=== PATIENT | female | born 1965 | race Caucasian/White ===

== ENCOUNTER 2019-06-21 16:15 | Outpatient (RCR) | payer OTHER, SELFPAY ==
--- NOTE | 2019-05-12 12:41 | PTOPEVAL ---
PHYSICAL THERAPY EVALUATION AND PLAN OF CARE Thank you for referring this patient to [facility]. Eunice is scheduled to be seen 2x/week for 4 weeks. Please see below for details of evaluation. Please review, sign, date and return this plan of care LEESA. I agree with and certify that the following plan of care is medically necessary. Referring Physician Date Attending Provider: Jeremías Mejía MD *PT Outpatient Evaluation Outpatient Past Medical History Gastrointestinal History Hx Cholecystectomy Yes Musculoskeletal History Hx Orthopedic Surgery Yes: left wrist surgery Hx Scoliosis Yes: thoracic dextroscoliosis, congentigal Hx Other Musculoskeletal Disorders Yes: multiple episodes of whiplash, migraines Evaluation Information Problem Diagnosis left shoulder pain Onset 3months ago Subjective Information Eunice is here today with c/o Query Text:As Reported By Patient/ left shoulder pain. She had Family surgery on her left wrist in 2017 and her strength never fully recovered.3months ago she lifted her grandson and her wrist gave out and her shoulder was pulled. She has pain and decreased strength in left shoulder since then. sometimes will wake up with left hand numbness. Eunice also has a history of multiple episodes of whiplash that have led to migraines. Over the last 6 weeks she noticed an increase in migraine frequency and intensity as well as some vertigo, like a pre-headache type feeling. Pain Assessment Left Shoulder(s) Reported Pain Level 1 Pain Description Aching,Pulling Pain Frequency Chronic Current Pain Intensity 1 Lowest Pain Intensity 1 Greatest Pain Intensity 5 General Upper Extremity Range of Motion Reason Not Measured WNL/Left,WNL/Right Scapular/Shoulder Right Shoulder Flexion Strength 4+ Good + Shoulder Abduction Strength 4+ Good + Shoulder Medial Rotation Strength 5 Normal Shoulder Lateral Rotation Strength 5 Normal Left Scapular Retraction - Rhomboid 3 Fair Scapular Retraction - Middle Trapezius 3 Fair Scapular Retraction - Lower Trapezius 3- Fair - Shoulder Flexion Strength 3+ Fair + Shoulder Abduction Strength 4- Good -
--- NOTE | 2019-05-17 09:16 | PCPTNOTE ---
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
--- NOTE | 2019-06-09 18:30 | PTOPEVAL ---
PHYSICAL THERAPY PLAN OF CARE UPDATE AND PROGRESS REPORT Thank you for referring this patient to [facility]. Eunice will continue to work with physical therapy 1-2x/week for 4 weeks. Please review, sign, date and return this plan of care LEESA. I agree with and certify that the following plan of care is medically necessary. 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 She reports less migraines overall and no numbness in her left hand while sleeping. It was suggested that when she is baby-sitting, if the baby wants to be held, that she sit in a chair and allow the child to come to her and pick the child up from the seated position so she is not lifting all the way from the floor. Pain Scale Used Numeric (1 - 10) Self Report Pain Assessment Left Shoulder(s) Reported Pain Level 0 Pain Description Aching,Pulling,Tightness Pain Frequency Chronic Additional Pain Comments in upper traps and back: 2/10 Pain Score Pain Score 0: Self Report Upper Extremity Range of Motion General Upper Extremity Range of Motion Reason Not Measured WNL/Left,WNL/Right Scapular/Shoulder Right Shoulder Flexion Strength 4+ Good + Shoulder Abduction Strength 4+ Good + Shoulder Medial Rotation Strength 5 Normal Shoulder Lateral Rotation Strength 5 Normal Left Scapular Retraction - Rhomboid 3+ Fair + Scapular Retraction - Middle Trapezius 3 Fair Scapular Retraction - Lower Trapezius 3 Fair Shoulder Flexion Strength 4 Good Shoulder Abduction Strength 4 Good Shoulder Medial Rotation Strength 4+ Good + Shoulder Lateral Rotation Strength 4 Good Shoulder Strength Comments no pain with MMT except during lateral rotation Standing Position Posture Evaluation View
--- NOTE | 2019-06-13 17:15 | PCPTNOTE ---
Patient did not show up for scheduled appointment this date.
--- NOTE | 2019-06-28 16:23 | PCPTNOTE ---
Patient called & cancelled scheduled appointment this date. No reason provided.
--- NOTE | 2019-07-05 18:10 | PCPTNOTE ---
Patient called & cancelled scheduled appointment this date. No reason provided.
--- NOTE | 2019-07-25 09:28 | PCPTNOTE ---
PHYSICAL THERAPY DISCHARGE Admitting Provide: Jeremías Mejía MD Patient:Eunice Mejía Date of :1965 Patient has not returned for any further treatments since 06/21/2019, therefore she will be discharged from therapy at this time. Her last re-assessment was on 06/09/2019. The goals have been partially achieved. Thank you for referring this patient to [facility]. Please review, sign, date and return this discharge summary LEESA. I have been updated about the patient's current status and I agree with discharge from the above service at this time. Referring Physician Date
== END 2019-07-25 12:22 | disposition home or self-care (01) ==
LOC: ANHPT 16:15
PROVIDERS: PCP Family Medicine; Visit Provider Family Medicine
DX: M25.511 Pain in right shoulder (principal); G89.29 Other chronic pain
CPT/HCPCS: 97110; 97140; 97161

== ENCOUNTER 2019-10-22 08:55 | Outpatient (CLI) | payer OTHER, SELFPAY ==
[2019-10-22 09:32] LABS: Hemoglobin A1C 6.1 % (<5.7)
[2019-10-22 09:33] LABS: Basophils Percent Auto 0.3 % (0.2-1.2); Eosinophils Absolute Auto 0.2 K/mm3 (0-0.3); Eosinophils Percent Auto 2.9 % (0-4.4); Hematocrit 40.6 % (37.0-47.0); Immature Granulocyte Absolute 0.03 K/mm3 (0.00-0.031); Immature Granulocyte Percent A 0.4 % (0-0.5); Lymphocytes Absolute Auto 1.34 K/mm3 (0.9-3.2); Lymphocytes Percent Auto 17.5 % (18.3-44.2); Mean Corpuscular Hemoglobin 28.1 pg (26-34); Mean Corpuscular Volume 87.9 fl (80-100); Mean Platelet Volume 11.4 fl (7.4-10.4); Monocytes Absolute Auto 0.5 K/mm3 (0.1-0.6); Monocytes Percent Auto 6.1 % (2.6-8.5); Neutrophils Absolute Auto 5.6 K/mm3 (1.3-6.7); Neutrophils Percent Auto 72.8 % (45.5-73.1); Platelet Count Result 238 k/mm3 (150-375); Red Blood Count 4.62 M/mm3 (4.2-5.4); Red Cell Distribution Width 13.2 % (11.5-14.5); White Blood Count 7.7 K/mm3 (4.5-10.0)
[2019-10-22 09:37] LABS: Add Urine Microscopic? NO; Appearance Urine Clear (Clear); Bilirubin Urine Negative (Negative); Blood Urine Negative (Negative); Color Urine Straw (Yellow); Glucose Urine UA Negative (Negative); Ketones Urine Negative (Negative); Leukocyte Esterase Ur Negative LEU/UL (NEGATIVE); Nitrate Urine Negative (Negative); Protein Urine Negative (Negative); Specific Grav Ur 1.012 (1.001-1.035); Urobilinogen Urine Negative mg/dL (<2.0)
[2019-10-22 09:40] LABS: Alanine Aminotransferase 19 U/L (4-35); Albumin Level 4.3 g/dL (3.5-5.1); Alkaline Phosphatase 88 U/L (38-126); Amylase 91 U/L (30-110); Aspartate Amino Transferase 20 U/L (14-36); Bilirubin,Total 0.5 mg/dL (0.2-1.3); Blood Urea Nitrogen 13 mg/dL (7-17); Calcium 8.8 mg/dL (8.4-10.2); Carbon Dioxide 27 mmol/L (22-30); Chloride 104 mmol/L (98-107); Cholesterol 176 mg/dL (0-200); Estimated Glomerular Filt Rate > 60; Glucose 106 mg/dL (65-105); HDL Direct 45 mg/dL; Lipase 190 U/L (23-300); Potassium 4.2 mmol/L (3.4-5.0); Sodium 138 mmol/L (137-145); Triglycerides 100 mg/dL (<150)
[2019-10-22 09:52] LABS: LDL Cholesterol Direct 109 mg/dL
[2019-10-22 10:10] LABS: Thyroid Stimulating Hormone 0.204 uIU/mL (0.465-4.680)
[2019-10-22 10:28] LABS: Free T4 Free Thyroxine 1.35 ng/mL (0.78-2.19)
[2019-10-22 10:54] LABS: Erythrocyte Sedimentation Rate 15 mm/hr (0-20)
[2019-10-26 00:45] LABS: CA-125 6 U/mL (<35)
[2019-10-27 01:37] LABS: ANA Cascade Screen Negative (Negative)
[2019-10-27 10:54] LABS: Vitamin D 1,25 (OH)2 Total 72 pg/mL (18-72); Vitamin D2 1,25 (OH)2 <8 pg/mL; Vitamin D3 1,25 (OH)2 72 pg/mL
== END 2019-10-22 08:56 | disposition home or self-care (01) ==
PROVIDERS: PCP Family Medicine; Visit Provider Family Medicine
DX: R10.9 Unspecified abdominal pain (principal); E55.9 Vitamin D deficiency, unspecified; R76.8 Other specified abnormal immunological findings in serum; E78.2 Mixed hyperlipidemia; E03.8 Other specified hypothyroidism; E06.3 Autoimmune thyroiditis; R73.01 Impaired fasting glucose
CPT/HCPCS: 36415; 80053; 80061; 81003; 82150; 82652; 83036; 83690; 84439; 84443; 85025; 85652; 86038; 86304

== ENCOUNTER 2020-06-27 09:57 | Outpatient (CLI) | payer OTHER, SELFPAY ==
[2020-06-27 10:20] LABS: Basophils Percent Auto 0.4 % (0.2-1.2); Eosinophils Absolute Auto 0.2 K/mm3 (0-0.3); Eosinophils Percent Auto 2.6 % (0-4.4); Hemoglobin 12.7 g/dL (12.0-15.0); Immature Granulocyte Absolute 0.02 K/mm3 (0.00-0.031); Immature Granulocyte Percent A 0.3 % (0-0.5); Lymphocytes Absolute Auto 1.52 K/mm3 (0.9-3.2); Lymphocytes Percent Auto 20.1 % (18.3-44.2); Mean Corpuscular HGB Conc 31.8 g/dl (32-36); Mean Corpuscular Hemoglobin 28.7 pg (26-34); Mean Corpuscular Volume 90.3 fl (80-100); Mean Platelet Volume 11.1 fl (7.4-10.4); Monocytes Absolute Auto 0.5 K/mm3 (0.1-0.6); Monocytes Percent Auto 6.7 % (2.6-8.5); Neutrophils Absolute Auto 5.3 K/mm3 (1.3-6.7); Neutrophils Percent Auto 69.9 % (45.5-73.1); Platelet Count Result 234 k/mm3 (150-375); Red Blood Count 4.43 M/mm3 (4.2-5.4); Red Cell Distribution Width 13.6 % (11.5-14.5); White Blood Count 7.6 K/mm3 (4.5-10.0)
[2020-06-27 10:34] LABS: Alanine Aminotransferase 23 U/L (4-35); Albumin Level 4.2 g/dL (3.5-5.1); Alkaline Phosphatase 104 U/L (38-126); Anion Gap 5 mmol/L (8-16); Aspartate Amino Transferase 19 U/L (14-36); Bilirubin,Total 0.5 mg/dL (0.2-1.3); Blood Urea Nitrogen 10 mg/dL (7-17); Calcium 8.9 mg/dL (8.4-10.2); Carbon Dioxide 27 mmol/L (22-30); Chloride 107 mmol/L (98-107); Cholesterol 171 mg/dL (0-200); Creatine Kinase 67 U/L (30-135); Estimated Glomerular Filt Rate > 60; Glucose 108 mg/dL (65-105); HDL Direct 41 mg/dL; Potassium 4.5 mmol/L (3.4-5.0); Sodium 139 mmol/L (137-145); Triglycerides 113 mg/dL (<150); Uric Acid 6.1 mg/dL (2.5-7.5)
[2020-06-27 10:36] LABS: Rheumatoid Factor < 8.6 IU/ML (<12)
[2020-06-27 10:44] LABS: LDL Cholesterol Direct 116 mg/dL
[2020-06-27 11:04] LABS: Thyroid Stimulating Hormone 0.678 uIU/mL (0.465-4.680)
[2020-06-27 11:11] LABS: Free T4 Free Thyroxine 1.31 ng/mL (0.78-2.19)
[2020-06-27 11:19] LABS: Erythrocyte Sedimentation Rate 17 mm/hr (0-20)
[2020-06-29 09:59] LABS: Anti Cyclic Citrullinated Pept <16 Units (<20)
[2020-06-29 12:28] LABS: ANA Cascade Screen Negative (Negative)
[2020-06-30 13:26] LABS: Vitamin D 1,25 (OH)2 Total 70 pg/mL (18-72); Vitamin D2 1,25 (OH)2 <8 pg/mL; Vitamin D3 1,25 (OH)2 70 pg/mL
[2020-07-01 17:14] LABS: CRP, High Sensitivity 5.6 mg/L (***)
[2020-07-04 19:11] LABS: Aldolase 5.7 U/L (<=8.1)
== END 2020-06-27 09:58 | disposition home or self-care (01) ==
LOC: ANHLAB 09:59
PROVIDERS: PCP Family Medicine; Visit Provider Family Medicine
DX: E03.8 Other specified hypothyroidism (principal); E06.3 Autoimmune thyroiditis; E55.9 Vitamin D deficiency, unspecified; E78.2 Mixed hyperlipidemia; D51.9 Vitamin B12 deficiency anemia, unspecified; M19.90 Unspecified osteoarthritis, unspecified site
CPT/HCPCS: 36415; 80053; 80061; 82085; 82550; 82607; 82652; 82746; 83735; 84439; 84443; 84550; 85025; 85652; 86038; 86141; 86200; 86430

== ENCOUNTER 2020-07-24 11:54 | Outpatient (CLI) | payer OTHER, SELFPAY ==
--- NOTE | ~2020-07-24 | XR_ITS ---
EXAMINATION: XR ankle LT min 3V, XR ankle RT min 3V DATE: 07/24/2020 12:26 INDICATION: Bilateral ankle swelling and right ankle pain. TECHNIQUE: 1. Anteroposterior, oblique, mortise, and lateral views of the left ankle were obtained. 2. Anteroposterior, oblique, mortise, and lateral views of the right ankle were obtained. COMPARISON: None. FINDINGS: Alignment is normal at both the left and right ankles and visualized portions of the feet. No fractu re. Joint spaces are well maintained. No erosions. No ankle joint effusion on either the left or righ t. Bilateral small Achilles calcaneal and moderate sized plantar calcaneal spurs. The soft tissues ar e unremarkable. IMPRESSION: 1. Bilateral Achilles and plantar calcaneal spurs. Otherwise unremarkable bilateral ankle radiographs . Reviewed, dictated and finalized at location A. CTOR OF INSTRUCTION IMPRESSION: 1. Bilateral Achilles and plantar calcaneal spurs. Otherwise unremarkable bilat eral ankle radiographs.
--- NOTE | ~2020-07-24 | XR_ITS ---
EXAMINATION: XR wrist LT min 3V, XR wrist RT min 3V DATE: 07/24/2020 12:26 INDICATION: Bilateral wrist swelling and right wrist pain. TECHNIQUE: 1. Posteroanterior, ulnar deviation, oblique, and lateral views of the left wrist were obtained. 2. Posteroanterior, ulnar deviation, oblique, and lateral views of the right wrist were obtained. COMPARISON: none FINDINGS: Bone alignment is normal at the bilateral wrists and visualized hands. No fracture. Mild osteoarthrit is at the left distal radioulnar joint, left first carpal metacarpal and bilateral first metacarpopha langeal joints. Minimal osteoarthritis at the right distal radioulnar, bilateral triscaphe and right first interphalangeal joints. Tiny lucency with thin sclerotic margins at the tip of the left ulnar s tyloid process which could represent either degenerative cystic change or a chronic erosion. No other potential erosions identified. Soft tissues are unremarkable. IMPRESSION: 1. Minimal to mild polyarticular osteoarthritis at the bilateral hands and wrists. Reviewed, dictated and finalized at location A. STANT STORE LEADER IMPRESSION: 1. Minimal to mild polyarticular osteoarthritis at the bilateral hands and wris ts.
== END 2020-07-24 11:55 | disposition home or self-care (01) ==
PROVIDERS: PCP Family Medicine; Visit Provider Family Medicine
DX: M25.571 Pain in right ankle and joints of right foot (principal); M25.572 Pain in left ankle and joints of left foot; M19.031 Primary osteoarthritis, right wrist; M19.032 Primary osteoarthritis, left wrist; M19.041 Primary osteoarthritis, right hand; M19.042 Primary osteoarthritis, left hand; M77.31 Calcaneal spur, right foot; M77.32 Calcaneal spur, left foot
CPT/HCPCS: 73110; 73610

== ENCOUNTER 2020-08-22 17:44 | Outpatient (CLI) | payer OTHER, SELFPAY ==
--- NOTE | ~2020-08-22 | XR_ITS ---
XR elbow RT min 3V DATE: 08/22/2020 18:04 INDICATION: Injury 3 weeks ago. Olecranon pain. TECHNIQUE: 4 views COMPARISON: None FINDINGS: No fracture or dislocation or joint effusion. No periosteal reaction or bone destruction. IMPRESSION: Negative Reviewed, dictated and finalized at location A. IMPRESSION: Negative
== END 2020-08-22 17:45 | disposition home or self-care (01) ==
PROVIDERS: PCP Family Medicine; Visit Provider Family Medicine
DX: M25.521 Pain in right elbow (principal)
CPT/HCPCS: 73080

== ENCOUNTER → 2020-09-12 08:41 | Outpatient (CLI) | payer OTHER, SELFPAY ==
[2020-09-12 20:44] LABS: SARS-CoV-2 RNA PCR Negative
== END ==
PROVIDERS: PCP Family Medicine; Visit Provider Family Medicine
DX: J01.00 Acute maxillary sinusitis, unspecified (principal); Z20.822 Contact with and (suspected) exposure to COVID-19
CPT/HCPCS: C9803; U0003; U0005

== ENCOUNTER 2020-09-28 13:40 | Outpatient (CLI) | payer OTHER, SELFPAY ==
--- NOTE | 2020-10-02 16:18 | WPDHOLTEREM ---
Holter/Event Monitor Holter/Event Monitor Date of procedure: 09/28/20 Procedure Type: 24 hour holter monitor Indications: Palpitations Conclusion: 1. 24 hour holter monitor on 09/28/20. 2. Underlying rhythm is sinus rhythm. HR range 52-141 bpm; average HR 84 bpm. 3. There are 182 premature supraventricular complexes and 1 supraventricular couplet. No supraventricular tachycardia. 4. There is 1 premature ventricular complex. No ventricular tachycardia. 5. No sinoatrial or atrioventricular blocks. No significant pauses greater than 2 seconds. 6. Patient reports symptoms of shortness of breath and skipped beats which demonstrate sinus rhythm, HR range 73-122 bpm.
== END 2020-09-28 13:41 | disposition home or self-care (01) ==
LOC: ANHCARD 13:43
PROVIDERS: PCP Family Medicine; Visit Provider Family Medicine
DX: R00.2 Palpitations (principal)
CPT/HCPCS: 93225; 93226

== ENCOUNTER → 2020-10-03 09:38 | Outpatient (CLI) | payer OTHER, SELFPAY ==
[2020-10-03 18:21] LABS: SARS-CoV-2 RNA PCR Negative
== END ==
PROVIDERS: PCP Family Medicine; Visit Provider Family Medicine
DX: J02.9 Acute pharyngitis, unspecified (principal); Z20.822 Contact with and (suspected) exposure to COVID-19
CPT/HCPCS: C9803; U0003; U0005

== ENCOUNTER 2020-11-08 10:17 | Outpatient (CLI) | payer OTHER, SELFPAY ==
--- NOTE | ~2020-11-08 | XR_ITS ---
EXAMINATION: XR knee RT 3V DATE: 11/08/2020 10:34 INDICATION: Right knee pain. TECHNIQUE: 3 views of right knee were obtained. COMPARISON: None. FINDINGS: Bone alignment is normal. No fracture. There is mild tricompartmental osteoarthritis. There is a small knee joint effusion. IMPRESSION: 1. Mild right knee osteoarthritis. 2. Small right knee joint effusion. Reviewed, dictated and finalized at location A.
== END 2020-11-08 10:18 | disposition home or self-care (01) ==
LOC: ANHIMG 10:23
PROVIDERS: PCP Family Medicine; Visit Provider Family Medicine
DX: M17.11 Unilateral primary osteoarthritis, right knee (principal); M25.461 Effusion, right knee
CPT/HCPCS: 73562

== ENCOUNTER 2020-11-16 09:43 | Outpatient (CLI) | payer OTHER, SELFPAY ==
--- NOTE | ~2020-11-16 | MR_ITS ---
EXAMINATION: MR knee RT wo con DATE: 11/16/2020 11:03 INDICATION: Right knee pain. TECHNIQUE: Magnetic resonance imaging (MRI) of the right knee was performed without intravenous contr ast. Sequences included axial PD-weighted FS FSE, coronal PD-weighted FSE and PD-weighted FS FSE, sag ittal PD-weighted FSE, and sagittal T2-weighted FS FSE. COMPARISON: Right knee radiograph 11/08/2020 FINDINGS: Medial compartment: Medial meniscus is normal. Tibial cartilage is normal. There is deep partial thickness cartilage loss of femoral condyle medially with moderate subchondral edema-like marrow signal intensity. There is s hallow partial-thickness cartilage loss of femoral condyle involving the central and lateral articula r surface. There are tiny marginal osteophytes. Lateral compartment: Lateral meniscus is normal. Lateral compartment cartilage is normal. Patellofemoral compartment: There is full-thickness cartilage loss of patellar median ridge and adjacent medial facet with mild s ubchondral edema-like marrow signal intensity. There is partial-thickness cartilage loss of patellar lateral facet. There is deep cartilage fissuring of medial trochlea. Osteophytes are noted. Ligaments and tendons: The anterior and posterior cruciate ligaments are normal. Medial collateral ligament is normal. There are changes of prior sprain of fibular collateral ligament characterized increased signal intensity proximally. There is mild patellar tendinopathy. Fluid: There is a small knee joint effusion. There is trace fluid in a Mensah's cyst. There is mild prepatell ar and superficial infrapatellar bursitis. IMPRESSION: 1. Severe chondrosis of patellofemoral compartment and moderate chondrosis of medial compartment. 2. Small knee joint effusion. Reviewed, dictated and finalized at location A. IMPRESSION: 1. Severe chondrosis of patellofemoral compartment and moderate chondrosis of m edial compartment. 2. Small knee joint effusion.
== END 2020-11-16 09:44 | disposition home or self-care (01) ==
LOC: ANHIMG 09:45
PROVIDERS: PCP Family Medicine; Visit Provider Family Medicine
DX: G89.29 Other chronic pain (principal); M25.561 Pain in right knee; M22.2X1 Patellofemoral disorders, right knee; M25.461 Effusion, right knee
CPT/HCPCS: 73721

== ENCOUNTER 2020-12-24 13:16 | Outpatient (CLI) | payer OTHER, SELFPAY ==
--- NOTE | ~2020-12-24 | US_ITS ---
EXAMINATION: US pelvic complete w TV DATE: 12/24/2020 14:23 INDICATION: Postmenopausal bleeding TECHNIQUE: Multiple transabdominal and endovaginal sonographic images of the pelvis were obtained. COMPARISON: 01/05/2012 FINDINGS: The uterus measures 10.2 x 4.9 x 5.8 cm. There is a 4.2 x 3.1 x 3.8 cm isoechoic lesion of the posterior uterine body which has the appearance of an intramural fibroid. The endometrial complex measures 3 mm. The ovaries are not visualized however no adnexal abnormality is seen. There is no fr ee fluid in the pelvis. IMPRESSION: 1. No sonographic correlate for the patient's symptoms. Reviewed, dictated and finalized at location B.
== END 2020-12-24 13:17 | disposition home or self-care (01) ==
LOC: ANHIMG 13:21
PROVIDERS: PCP Family Medicine
DX: N95.0 Postmenopausal bleeding (principal)
CPT/HCPCS: 76830; 76856

== ENCOUNTER 2021-04-02 10:09 | Outpatient (CLI) | payer OTHER, SELFPAY ==
--- NOTE | ~2021-04-02 | CT_ITS ---
EXAMINATION: CT diagnostic chest wo con EXAM DATE: 04/02/2021 10:31 INDICATION: R06.09 - Other forms of dyspnea. 6 mm nodule on coronary artery CT. TECHNIQUE: Spiral CT of the chest without contrast. HRCT. Axial, coronal and sagittal images of the c hest were reviewed. Coronal maximum intensity pixel images of chest reviewed. The dose-length produ ct (DLP) for this examination was 507.44 mGy-cm. The exposure was tailored according to patient size (auto mA exposure control), and iterative reconstruction (ASIR) was used as additional dose reductio n technique. Comparison is made to prior examination from 01/16/2014. FINDINGS: No evidence of interstitial lung disease. There is 5 mm of subsolid lingular nodule, could be same 3 mm nodule in this location on prior study. This is most likely a granuloma. Previously seen groundglass opacities have resolved. There are no pleural or pericardial effusions. Tracheobronch ial tree is patent. There is no mediastinal, hilar or axillary lymphadenopathy. There is no pneum othorax. Heart normal in size. No evidence of coronary arterial calcification. There is small sli ding gastroesophageal hiatal hernia. There are cholecystectomy clips. There is hepatic steatosis. Th ere is bilobulated sclerotic focus within C7 vertebral body measuring up to 7 mm, with a previously s een single sclerotic 4 mm region in this vertebral body. No other sclerotic foci. IMPRESSION: 1. Small lingular nodule and T7 sclerotic focus with mild increase in size compared to 2013. Favor b enign histology such as granuloma, bone island respectively. Recommend one-year follow-up chest CT wi thout contrast. 2. Hepatic steatosis. 3. Small hiatal hernia. Reviewed, dictated and finalized at location B. IMPRESSION: 1. Small lingular nodule and T7 sclerotic focus with mild increase in size com pared to 2013. Favor benign histology such as granuloma, bone island respective ly. Recommend one-year follow-up chest CT without contrast. 2. Hepatic steatosis. 3. Small hiatal hernia.
== END 2021-04-02 10:10 | disposition home or self-care (01) ==
LOC: ANHIMG 10:17
PROVIDERS: PCP Family Medicine; Visit Provider Family Medicine
DX: R06.09 Other forms of dyspnea (principal); U09.9 Post COVID-19 condition, unspecified; K44.9 Diaphragmatic hernia without obstruction or gangrene; K76.0 Fatty (change of) liver, not elsewhere classified; R91.1 Solitary pulmonary nodule
CPT/HCPCS: 71250

== ENCOUNTER 2021-05-14 07:59 | Outpatient (RCR) | payer OTHER, SELFPAY ==
[2021-05-14 08:39] VITALS: BP 105/61; PULSE 101; RESP 18; TEMP 38.5; O2SAT 93
[2021-05-14] MEDS: FAMOTIDINE 20 MG TABLET PO (08:45)
[2021-05-14] MEDS: ACETAMINOPHEN 325 MG TABLET 650 MG PO (08:45)
[2021-05-14] MEDS: diphenhydrAMINE HCl CAP 25 MG CAPSULE PO (08:45)
[2021-05-14 09:45] VITALS: BP 123/67
== END 2021-05-14 17:00 ==
LOC: AMCINF 07:59
PROVIDERS: PCP Family Medicine; Visit Provider Internal Medicine Hematology & Oncology
DX: U07.1 COVID-19 (principal); I10 Essential (primary) hypertension; I25.10 Atherosclerotic heart disease of native coronary artery without angina pectoris; J44.9 Chronic obstructive pulmonary disease, unspecified; D84.9 Immunodeficiency, unspecified
CPT/HCPCS: A9270; M0243

== ENCOUNTER 2021-05-14 20:33 | Inpatient (IN) | payer OTHER, SELFPAY ==
--- NOTE | ~2021-05-14 | XR_ITS ---
EXAMINATION: XR chest 1V portable EXAM DATE: 05/20/2021 06:36 INDICATION: f/u pneumonia. TECHNIQUE: Portable AP frontal chest x-ray was obtained. Comparison is made to prior examination from 05/16/2021, 05/14/2021. FINDINGS: There is more confluence of the diffuse airspace disease compared to previous examinations with development of air bronchograms, interval progression in COVID pneumonia. No pneumothorax or siz able pleural effusion. The cardiomediastinal silhouette is prominent but magnified on this AP techniq ue. There is scoliosis. IMPRESSION: Progression of diffuse COVID pneumonia. Reviewed, dictated and finalized at location B. DIRECTOR OF HOME HEALTH SALES
--- NOTE | ~2021-05-14 | XR_ITS ---
XR chest-chest tube insert/pos 05/30/2021 10:51 Indication: Chest tube placement for pneumothorax Procedure: PA portable view of the chest Comparison: Comparison to multiple prior studies sequentially, with oldest reviewed study dated 05/09. Findings: Interval placement of right apical chest tube. Endotracheal tube tip about 3 cm above the c sean. NG tube in the stomach. Interval resolution of right pneumothorax. There is subcutaneous emphy sema in the right chest wall. There is diffuse bilateral airspace disease consistent with pneumonia. No significant change. Impression: 1: Interval resolution of right pneumothorax post chest tube placement. 2: Persistent diffuse bilateral airspace disease, consistent with pneumonia. Reviewed, dictated and finalized at location A. NESS RULES ANALYST Impression: 1: Interval resolution of right pneumothorax post chest tube placement. 2: Persistent diffuse bilateral airspace disease, consistent with pneumonia.
--- NOTE | ~2021-05-14 | XR_ITS ---
EXAMINATION: XR chest 1V portable DATE: 05/27/2021 10:29 INDICATION: Respiratory failure. COVID-19 pneumonia. TECHNIQUE: A single frontal view of the chest was obtained. COMPARISON: Chest single view 05/26/2021 FINDINGS: The patient is rotated to her left. There are airspace and interstitial opacities throughou t the lungs bilaterally with relative sparing of left lung apex. No pleural effusion or pneumothorax. The heart size is normal. The endotracheal tube tip is 2.1 cm above the siria. The nasogastric tube tip is beyond the inferior margin of the radiograph, but at least to the stomach. IMPRESSION: 1. Diffuse lung disease with worsening in left mid and lower lung zones, consistent with COVID-19 pne umonia versus acute respiratory distress syndrome (ARDS). Reviewed, dictated and finalized at location A. UNITY NUTRITION EDUCATOR IMPRESSION: 1. Diffuse lung disease with worsening in left mid and lower lung zones, consis tent with COVID-19 pneumonia versus acute respiratory distress syndrome (ARDS).
--- NOTE | ~2021-05-14 | XR_ITS ---
EXAMINATION: XR chest 1V portable DATE: 05/26/2021 11:51 INDICATION: Respiratory failure. TECHNIQUE: A single frontal view of the chest was obtained. COMPARISON: Chest single view 05/25/2021 FINDINGS: The patient is rotated to her left. There are airspace and interstitial opacities throughou t the lungs bilaterally. No pleural effusion or pneumothorax. The heart size is normal. The endotrach eal tube tip is 1.5 cm above the siria. The nasogastric tube tip is beyond the inferior margin of th e radiograph, but at least to the stomach. A right upper extremity peripherally inserted central veno us catheter (PICC) is seen with tip in the superior vena cava. IMPRESSION: 1. Stable diffuse lung disease, consistent with COVID-19 pneumonia versus acute respiratory distress syndrome (ARDS). Reviewed, dictated and finalized at location A. MANAGER
--- NOTE | ~2021-05-14 | XR_ITS ---
XR chest 1V portable DATE: 06/01/2021 09:37 INDICATION: Acute respiratory failure. Covid pneumonia. TECHNIQUE: Portable AP chest on 06/01/2021 at 0928 hours COMPARISON: 05/27/2021 portable AP chest at 0046 hours FINDINGS: Right thoracostomy tube is again noted; no apparent right pneumothorax. There is mild incre ased subcutaneous emphysema of the right chest wall. ET and NG tubes in satisfactory position. Right upper extremity PIC catheter tip overlies superior ve na cava. Persistent diffuse patchy bilateral pulmonary infiltrates throughout both lung coleman. No pleural eff usion. IMPRESSION: Right thoracostomy tube; no apparent residual right pneumothorax Mild increased right subcutaneous emphysema Persistent diffuse patchy bilateral pulmonary infiltrates Reviewed, dictated and finalized at location A. SORTER
--- NOTE | ~2021-05-14 | XR_ITS ---
EXAMINATION: XR chest 1V portable DATE: 06/03/2021 06:36 INDICATION: Acute respiratory failure. TECHNIQUE: A single frontal view of the chest was obtained. COMPARISON: Chest single view 06/02/2021 FINDINGS: There are airspace opacities in all lung zones bilaterally with a perihilar predominance. T here is a small right pneumothorax. No pleural effusion. Cardiomegaly is noted. The endotracheal tube tip is 3.4 cm above. The nasogastric tube tip is in the stomach. A right-sided chest tube is noted. There is gas in right lateral chest wall. IMPRESSION: 1. Small right pneumothorax with interval improvement with chest tube in expected position. 2. Stable diffuse lung disease, consistent with pneumonia versus acute respiratory distress syndrome (ARDS). 3. Cardiomegaly. Reviewed, dictated and finalized at location B. OT TIER IMPRESSION: 1. Small right pneumothorax with interval improvement with chest tube in expect ed position. 2. Stable diffuse lung disease, consistent with pneumonia versus acute respirat ory distress syndrome (ARDS). 3. Cardiomegaly.
--- NOTE | ~2021-05-14 | XR_ITS ---
EXAMINATION: XR chest 1V portable EXAM DATE: 05/14/2021 21:47 INDICATION: covid + TECHNIQUE: Portable AP frontal chest x-ray was obtained. Comparison is made to prior examination from 01/07/2014. FINDINGS: There is cardiomegaly. There is moderate thoracic dextroscoliosis. Moderate amount of bilat eral ill-defined airspace disease, distribution and appearance is consistent with COVID pneumonia. No pneumothorax or pleural effusion. IMPRESSION: Moderate amount of bilateral airspace disease probably COVID pneumonia. Reviewed, dictated and finalized at location G. MODELING ARCHITECT IMPRESSION: Moderate amount of bilateral airspace disease probably COVID pneum onia.
--- NOTE | ~2021-05-14 | XR_ITS ---
EXAMINATION: XR chest 1V portable DATE: 05/30/2021 10:01 INDICATION: Drop in oxygen saturation. TECHNIQUE: A single frontal view of the chest was obtained. COMPARISON: Chest single view at 4:34 AM FINDINGS: There is a new large right pneumothorax. Pneumomediastinum is noted. There is gas in the ne ck soft tissues. There are airspace opacities throughout the lungs bilaterally. No pleural effusion. The heart size is obscured. The endotracheal tube tip is 2.6 cm above the siria. The nasogastric tub e tip is beyond the inferior margin of the radiograph, but at least to the stomach. A right upper ex tremity peripherally inserted central venous catheter (PICC) is seen with tip in the superior vena ca va. IMPRESSION: 1. New large right pneumothorax. I called this result to Dr. Carmichael. 2. Pneumomediastinum. 3. Worsened diffuse lung disease, consistent with COVID-19 pneumonia versus acute respiratory distres s syndrome (ARDS) and atelectasis. Reviewed, dictated and finalized at location A. OR NETWORK ADMINISTRATOR IMPRESSION: 1. New large right pneumothorax. I called this result to Dr. Carmichael. 2. Pneumomediastinum. 3. Worsened diffuse lung disease, consistent with COVID-19 pneumonia versus acu te respiratory distress syndrome (ARDS) and atelectasis.
--- NOTE | ~2021-05-14 | XR_ITS ---
XR chest PICC line 05/21/2021 18:20 Indication: PICC line placement Procedure: AP portable chest Comparison: Comparison to multiple prior studies sequentially, with oldest reviewed study dated 01/17. Findings: Right subclavian PICC line tip in the SVC. Cardiomegaly. Progression of diffuse bilateral a irspace disease, compatible with pneumonia. Differential diagnosis includes edema and ARDS. No signif icant effusion or pneumothorax. No acute osseous abnormality. Impression: 1: Progression of diffuse bilateral airspace disease, compatible with pneumonia. Reviewed, dictated and finalized at location A. CAL STAFF SERVICES MANAGER Impression: 1: Progression of diffuse bilateral airspace disease, compatible with pneumonia .
--- NOTE | ~2021-05-14 | XR_ITS ---
EXAMINATION: XR chest 1V portable DATE: 05/24/2021 11:21 INDICATION: Respiratory failure. TECHNIQUE: A single frontal view of the chest was obtained. COMPARISON: Chest single view 05/22/2021, chest CT 05/14/2021 FINDINGS: The patient is rotated to her left. There are airspace and interstitial opacities throughou t the lungs bilaterally. No pleural effusion or pneumothorax. Pneumomediastinum is noted. There is ga s in the neck soft tissues. The heart size is normal. The endotracheal tube tip is 1.6 cm above the c sean. The nasogastric tube tip is beyond the inferior margin of the radiograph, but at least to the stomach. A right upper extremity peripherally inserted central venous catheter (PICC) is seen with ti p in the superior vena cava. IMPRESSION: 1. Pneumomediastinum. 2. Stable diffuse lung disease, consistent with COVID-19 pneumonia versus acute respiratory distress syndrome (ARDS). Reviewed, dictated and finalized at location A. OMER ADVISOR SPECIALIST
--- NOTE | ~2021-05-14 | XR_ITS ---
XR chest 1V portable 05/28/2021 10:58 Indication: Respiratory failure Procedure: AP portable chest Comparison: Comparison to multiple prior studies sequentially, with oldest reviewed study dated 05/08. Findings: Endotracheal tube tip 3.9 cm above the siria. NG tube in the stomach. Right subclavian PIC C line tip in the SVC. Diffuse bilateral airspace disease, compatible with pneumonia. There is a skin fold overlying the upper chest centrally no significant effusion or pneumothorax. Impression: 1: No significant change to diffuse bilateral airspace disease allowing for differences of technique, compatible with pneumonia. Reviewed, dictated and finalized at location A. ER/REFUSE COLLECTOR Impression: 1: No significant change to diffuse bilateral airspace disease allowing for dif ferences of technique, compatible with pneumonia.
--- NOTE | ~2021-05-14 | XR_ITS ---
EXAMINATION: XR chest 1V portable DATE: 05/25/2021 10:46 INDICATION: Respiratory failure. TECHNIQUE: A single frontal view of the chest was obtained. COMPARISON: Chest single view 05/24/2021 FINDINGS: The patient is rotated to her left. There are airspace and interstitial opacities throughou t the lungs bilaterally. No pleural effusion or pneumothorax. Pneumomediastinum is no longer visualiz ed. The heart size is normal. The endotracheal tube tip is 3.2 cm above the siria. The nasogastric t ube tip is beyond the inferior margin of the radiograph, but at least to the stomach. Surgical clips in the right upper quadrant are likely from cholecystectomy. A right upper extremity peripherally ins erted central venous catheter (PICC) is seen with tip in the superior vena cava. IMPRESSION: 1. Stable diffuse lung disease, consistent with COVID-19 pneumonia versus acute respiratory distress syndrome (ARDS). Reviewed, dictated and finalized at location A. EN FOOD SELECTOR
--- NOTE | ~2021-05-14 | XR_ITS ---
EXAMINATION: XR chest ET placement INDICATION: Endotracheal and OG tube placement TECHNIQUE: Portable AP chest at 0806 hours COMPARISON: 05/21/2021 FINDINGS: An endotracheal tube has been inserted which ends approximately 10 mm above the siria. The orogastric tube is followed as far as the stomach. Its tip is beyond the inferior margin of the radi ograph. A right upper extremity PICC ends with its tip at the superior cavoatrial junction. Diffuse i nterstitial and airspace opacities persist with slight worsening. The cardiomediastinal silhouette is stable. No pleural effusion or pneumothorax is identified. IMPRESSION: 1. Endotracheal tube approximately 10 mm above the siria. Position of the orogastric and endotrachea l tubes were communicated directly to the ICU at 0809 hours on 05/22/2021. 2. Orogastric tube the stomach. 3. Diffuse lung disease with interval worsening, consistent with pneumonia and/or pulmonary edema and /or acute respiratory distress syndrome (ARDS). Reviewed, dictated and finalized at location A. OGRAPHICS ASSOCIATE IMPRESSION: 1. Endotracheal tube approximately 10 mm above the siria. Position of the orog astric and endotracheal tubes were communicated directly to the ICU at 0809 [address] rs on 05/22/2021. 2. Orogastric tube the stomach. 3. Diffuse lung disease with interval worsening, consistent with pneumonia and/ or pulmonary edema and/or acute respiratory distress syndrome (ARDS).
--- NOTE | ~2021-05-14 | XR_ITS ---
EXAMINATION: XR chest 1V portable DATE: 05/16/2021 06:01 INDICATION: COVID-19 pneumonia. TECHNIQUE: A single frontal view of the chest was obtained. COMPARISON: Chest single view 05/14/2021, chest CT 12/26 FINDINGS: There are patchy basilar opacities throughout the lungs bilaterally. No pleural effusion or pneumothorax. Cardiomegaly is noted. IMPRESSION: 1. Diffuse lung disease with worsening in the lower lung zones, consistent with COVID-19 pneumonia. 2. Cardiomegaly. Reviewed, dictated and finalized at location A. PROGRAM COORDINATOR
--- NOTE | ~2021-05-14 | CT_ITS ---
EXAMINATION: CTA chest PE protocol EXAM DATE: 05/14/2021 23:14 INDICATION: Elevated dimer, + COVID positive. TECHNIQUE: Spiral CTA of the chest (pulmonary arteries) was performed with 100 cc Omnipaque 350 intr avenous contrast injection. Images were acquired during the pulmonary arterial phase. Coronal maxi mum intensity projection 3D-reconstructions were created by the technologist on dedicated workstation . Axial, coronal and sagittal reformatted images were reviewed. The dose-length product (DLP) for t his examination was 855.18 mGy-cm. The exposure was tailored according to patient size (auto mA exp osure control), and iterative reconstruction (ASIR) was used as additional dose reduction technique. Comparison is made to prior examination from 04/02/2021. FINDINGS: Pulmonary arteries are well opacified and without intraluminal filling defects. No thora cic aortic dissection. There has been interval development of moderate amount of patchy bilateral ai rspace disease involving all lobes. Appearance is consistent with COVID pneumonia. Previously seen 3 mm nodule is unchanged. There are no pleural or pericardial effusions. Tracheobronchial tree is pa tent. There is no mediastinal, hilar or axillary lymphadenopathy. There is no pneumothorax. Hea rt normal in size. No evidence of coronary arterial calcification. There is hepatic steatosis. Cho lecystectomy clips. Small T7 sclerotic focus again noted. IMPRESSION: 1. Moderate amount of bilateral airspace disease, appearance consistent with acute to early subacute COVID pneumonia. 2. Small lingular nodule and small T7 sclerotic focus unchanged; one-year follow-up chest CT as prev iously recommended. 3. No pulmonary emboli. Reviewed, dictated and finalized at location G. ING EDUCATOR IMPRESSION: 1. Moderate amount of bilateral airspace disease, appearance consistent with a cute to early subacute COVID pneumonia. 2. Small lingular nodule and small T7 sclerotic focus unchanged; one-year foll ow-up chest CT as previously recommended. 3. No pulmonary emboli.
--- NOTE | ~2021-05-14 | XR_ITS ---
XR chest 1V portable 05/29/2021 10:46 Indication: Respiratory failure Procedure: AP portable chest Comparison: Comparison to multiple prior studies sequentially, with oldest reviewed study dated 05/08.. Findings: Right subclavian PICC line tip in the SVC. NG tube in the stomach. Heart size normal. Endot katie tube tip approximately 4.4 cm above the siria. Persistent diffuse bilateral airspace disease , compatible with pneumonia. No pleural effusion. No suspected pneumothorax. Impression: 1: Diffuse bilateral airspace disease is unchanged, compatible with pneumonia. Reviewed, dictated and finalized at location A. EOLOGY FACULTY MEMBER Impression: 1: Diffuse bilateral airspace disease is unchanged, compatible with pneumonia.
--- NOTE | ~2021-05-14 | XR_ITS ---
XR chest ET placement DATE: 05/31/2021 00:53 INDICATION: ET tube placement TECHNIQUE: Portable AP chest on 05/31/2021 at 0046 hours COMPARISON: 05/30/2021 portable AP chest at 1026 hours FINDINGS: ET tube and NG tube in satisfactory position. Right upper extremity PIC catheter tip overlies the superior vena cava. Right thoracostomy tube is unchanged, overlying the medial right upper thorax. There is diminished kwok bcutaneous emphysema of the right chest wall and minimal residual right apical pneumothorax. Persistent severe diffuse bilateral pulmonary infiltrates. No pleural effusion. Heart size is within normal range. IMPRESSION: Right thoracostomy tube unchanged in position. Minimal residual right apical pneumothorax ; diminished subcutaneous and posterior right chest wall. ET and NG tubes in satisfactory position Right upper extremity PIC catheter in superior vena cava Persistent diffuse severe bilateral pulmonary infiltrates Reviewed, dictated and finalized at Location A. Reviewed, dictated and finalized at location A. ER MAINTENANCE CLEANING IMPRESSION: Right thoracostomy tube unchanged in position. Minimal residual rig ht apical pneumothorax; diminished subcutaneous and posterior right chest wall. ET and NG tubes in satisfactory position Right upper extremity PIC catheter in superior vena cava Persistent diffuse severe bilateral pulmonary infiltrates
--- NOTE | ~2021-05-14 | XR_ITS ---
EXAMINATION: XR chest 1V portable DATE: 05/30/2021 05:27 INDICATION: Acute respiratory failure. COVID-19 pneumonia. TECHNIQUE: A single frontal view of the chest was obtained. COMPARISON: Chest single view 05/29/2021 FINDINGS: The patient is rotated to her right. There are airspace and interstitial opacities througho ut the lungs bilaterally. No pleural effusion or pneumothorax. The heart size is normal. The endotrac heal tube tip is 4.8 cm above the siria. The nasogastric tube tip is beyond the inferior margin of t he radiograph, but at least to the stomach. A right upper extremity peripherally inserted central antonio ous catheter (PICC) is seen with tip in the superior vena cava. IMPRESSION: 1. Slightly worsened diffuse lung disease, consistent with COVID-19 pneumonia. Reviewed, dictated and finalized at location A. RESSOR ASSEMBLER
--- NOTE | ~2021-05-14 | XR_ITS ---
XR chest 1V portable DATE: 06/02/2021 10:37 INDICATION: Acute respiratory failure. Covid pneumonia. Pneumothorax. TECHNIQUE: Portable AP chest on 06/02/2021 at 1002 hours COMPARISON: 06/01/2021 portable AP chest at 0928 hours FINDINGS: Right thoracostomy tube is unchanged in position. There is mild right pneumothorax, mildly increased since 06/01/2021. There is subcutaneous emphysema of the right lateral chest wall, relative ly stable. Severe diffuse bilateral pulmonary infiltrates are again noted. ET and NG tubes appear in satisfactory position. IMPRESSION: Mildly increased right pneumothorax since 06/01/2021 Persistent diffuse severe bilateral pulmonary infiltrates Reviewed, dictated and finalized at location A. ERENCE SERVICES COORDINATOR
--- NOTE | ~2021-05-14 | XR_ITS ---
EXAMINATION: XR chest 1V portable EXAM DATE: 06/04/2021 08:46 INDICATION: COVID pneumonia. Acute respiratory failure. TECHNIQUE: Portable AP frontal chest x-ray was obtained. Comparison is made to prior examination from 06/03/2021. FINDINGS: Endotracheal tube and nasogastric tube are in position. There is probable right-sided PICC line. There is a right-sided chest tube in position. Evidence of small right pneumothorax. Diffuse ai rspace disease, COVID pneumonia. The cardiomediastinal silhouette is prominent but magnified on this AP technique. The bones and soft tissues are unremarkable. There is no significant interval change compared to prior exam. IMPRESSION: 1. Line and tube(s) in position. 2. Small right pneumothorax, diffuse airspace disease unchanged. Reviewed, dictated and finalized at location A. S SUPERVISOR
[2021-05-14 20:40] VITALS: BP 109/58; PULSE 94; RESP 20; TEMP 36.8; O2SAT 95
--- NOTE | 2021-05-14 21:09 | ED.URI ---
HPI - URI/Sore Throat General Chief Complaint: Upper Respiratory Infection Stated Complaint: COVID Time Seen by Provider: 05/14/21 21:09 Source: patient Mode of arrival: ambulatory Limitations: no limitations History of Present Illness HPI Narrative: The patient is a 55-year-old female with a history of hypertension, hypothyroidism, presenting for evaluation of generalized weakness, general malaise. Patient tested positive for Covid 5 days previously, was symptomatic 2 days prior to that. Patient was exposed to her grandson. Patient was also positive on Thursday of last week. Patient reports myalgias, arthralgias. Denies chest pain. Reports dry cough. Denies pleuritic pain or shortness of breath patient states at home she thought her oxygen was ranging 88 to 91% on room air, given the decreased oral intake, myalgias, arthralgias, she and her who is also positive for Covid, decided to come to the emergency department. Patient denies any calf swelling or leg pain. No rashes. She reports diarrhea and decreased oral intake. She denies vomiting. Patient is unvaccinated. Related Data Home Medications Medication Instructions Recorded Confirmed levothyroxine 125 mcg tablet 125 mcg PO DAILY 04/11/19 05/14/21 Allergies Allergy/AdvReac Type Severity Reaction Status Date / Time adhesive Allergy Mild REDNESS Verified 05/14/21 08:49 Anesthetics - Amide Type - AdvReac Unknown NAUSEA Verified 05/14/21 08:49 Select A ADHESIVE TAPE-- Allergy Mild LEAVES Uncoded 05/14/21 08:49 PROLONGED TAPEMARKS ON SKIN, SWELLING TO AREA, SORE A ANESTHESIA AdvReac Intermediate NAUSEA Uncoded 05/14/21 08:49 Review of Systems Review of Systems: CONSTITUTIONAL: Reports fever and chills EYES: Denies visual changes, redness, or discharge. ENT: Reports rhinorrhea and congestion CARDIOVASCULAR: Denies chest pain, palpitations, or edema. RESPIRATORY: Reports cough and intermittent dyspnea GASTROINTESTINAL: Denies abdominal pain, reports nausea and diarrhea GENITOURINARY: Denies dysuria or hematuria. SKIN: Denies rash or itching. MUSCULOSKELETAL: Reports diffuse myalgias, arthralgias NEUROLOGIC: Reports headache and diffuse weakness PMFSH Past Medical History Medical History Abdominal pain in female Abscess of pulp of tooth (~02/12/21) Acute non-recurrent maxillary sinusitis Acute pain of right knee (~09/07/20) Allergic cough KI positive Arthritis Benign paroxysmal positional vertigo due to bilateral vestibular disorder Bilateral ankle pain Candidiasis Chronic pain of right knee (~09/07/20) mild osteoarthritis with joint effusion on x-ray 11/08/2020. severe chondrosis of on MRI on 11/16/2020 Chronic right shoulder pain COVID (05/09/21) Rapid test positive 05/10/2021 COVID-19 (05/02/20) COVID-19 long hauler manifesting chronic dyspnea (05/02/20) Dysfunctional uterine bleeding (~10/08/20) Encounter for screening for other viral diseases Essential (primary) hypertension Fatty liver disease, nonalcoholic (04/02/21) fatty changes of the liver noted on CT of the chest 04/02/2021 GERD (gastroesophageal reflux disease) Headache Myalgia Pain in both wrists Palpitation Unremarkable 24 hour Holter monitor 09/29/2020 Pharyngitis Right elbow pain Screening for heart disease (09/06/20) CT coronary artery calcium study on 09/06/2020 excellent with calcium score of 0 Seborrhea Solitary pulmonary nodule on lung CT (09/10/20) 6 mm solitary lung nodule noted on coronary artery CT scan 09/10/2020 UTI (urinary tract infection) Surgical History Surgical History (Updated 07/26/20 @ 10:51 by Kevin Little MD) H/O left wrist surgery 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
--- NOTE | 2021-05-14 21:27 | ECG_ITS ---
Measurements Intervals [place] Rate: 87 P: 34 AR: 128 QRS: -8 QRSD: 90 T: 29 QT: 344 QTc: 415 Interpretive Statements SINUS RHYTHM VOLTAGE CRITERIA FOR LVH BORDERLINE ST ABNORMALITY- HIGH LATERAL LEADS BORDERLINE ECG Electronically Signed On 05-15-2021 6:40:57 AERONAUTICAL PROJECT ENGINEER by Abhishek Lazaro D.O.
[2021-05-14 22:00] VITALS: PULSE 81; RESP 18; TEMP 36.8; O2SAT 95
[2021-05-14 22:07] LABS: Hematocrit 44.1 % (37.0-47.0); Hemoglobin 14.1 g/dL (12.0-15.0); Immature Granulocyte Absolute 0.05 K/mm3 (0.00-0.031); Lymphocytes Absolute Auto 0.65 K/mm3 (0.9-3.2); Lymphocytes Percent Auto 12.9 % (18.3-44.2); Mean Corpuscular Hemoglobin 28.3 pg (26-34); Mean Corpuscular Volume 88.4 fl (80-100); Mean Platelet Volume 11.1 fl (7.4-10.4); Monocytes Absolute Auto 0.3 K/mm3 (0.1-0.6); Monocytes Percent Auto 6.1 % (2.6-8.5); Platelet Count Result 180 k/mm3 (150-375); Red Blood Count 4.99 M/mm3 (4.2-5.4); Red Cell Distribution Width 13.8 % (11.5-14.5); White Blood Count 5.1 K/mm3 (4.5-10.0)
[2021-05-14] MEDS: ONDANSETRON INJ 4 MG/2 ML VIAL IV PUSH (22:10)
[2021-05-14] MEDS: SODIUM CHLORIDE 0.9% IV 1,000 ML 999 ML IV CONT (22:11)
[2021-05-14 22:42] LABS: INR 0.9; Prothrombin Time 12.3 Seconds (11.1-14.7)
[2021-05-14 22:43] LABS: Partial Thromboplastin Time 27.6 SECONDS (22.3-36.8)
[2021-05-14 22:45] LABS: D Dimer 0.56 ug/mL (<0.48)
[2021-05-14 22:54] LABS: Alanine Aminotransferase 26 U/L (4-35); Albumin Level 3.7 g/dL (3.5-5.1); Alkaline Phosphatase 67 U/L (38-126); Anion Gap 7 mmol/L (8-16); Aspartate Amino Transferase 38 U/L (14-36); Bilirubin,Total 0.3 mg/dL (0.2-1.3); Blood Urea Nitrogen 20 mg/dL (7-17); CRP 8.8 mg/dL (<1.0); Carbon Dioxide 25 mmol/L (22-30); Chloride 98 mmol/L (98-107); Creatine Kinase 98 U/L (30-135); Estimated CRCL calculation 59 ml/min; Estimated Glomerular Filt Rate 51; Glucose 108 mg/dL (65-110); Potassium 3.8 mmol/L (3.4-5.0); Sodium 130 mmol/L (137-145)
[2021-05-14 23:03] LABS: Troponin I < 0.012 ng/mL (0.000-0.034)
[2021-05-15] VITALS (13 sets, daily range): BP systolic 93–125; BP diastolic 42–76; PULSE 64–91; RESP 16–24; TEMP 35.6–37.3; O2SAT 85–96; BMI 38.0
--- NOTE | 2021-05-15 00:14 | PM.IMHP ---
H&P: HPI History of Present Illness Date/Time: 05/15/21 00:14 Chief Complaint: Shortness of breath Narrative: This is a 55-year-old female that presented to the emergency room due to shortness of breath, patient had a family gathering for signs given a recently most family members have turn laster to be positive for COVID-19. Patient presented today to the emergency room due to worsening shortness of breath, chills, fevers, body aches, and pains, poor appetite, has had some diarrhea as well no nausea no vomiting or abdominal, no leg swelling. Patient had a CT angio of the chest which revealed no pulmonary embolism. Chest x-ray was significant for diffuse bilateral infiltrates. FOR[facility]LY [facility], [facility] Past Medical History Medical History Abdominal pain in female Abscess of pulp of tooth (~02/12/21) Acute non-recurrent maxillary sinusitis Acute pain of right knee (~09/07/20) Allergic cough KI positive Arthritis Benign paroxysmal positional vertigo due to bilateral vestibular disorder Bilateral ankle pain Candidiasis Chronic pain of right knee (~09/07/20) mild osteoarthritis with joint effusion on x-ray 11/08/2020. severe chondrosis of on MRI on 11/16/2020 Chronic right shoulder pain COVID (05/09/21) Rapid test positive 05/10/2021 COVID-19 (05/02/20) COVID-19 long hauler manifesting chronic dyspnea (05/02/20) Dysfunctional uterine bleeding (~10/08/20) Encounter for screening for other viral diseases Essential (primary) hypertension Fatty liver disease, nonalcoholic (04/02/21) fatty changes of the liver noted on CT of the chest 04/02/2021 GERD (gastroesophageal reflux disease) Headache Myalgia Pain in both wrists Palpitation Unremarkable 24 hour Holter monitor 09/29/2020 Pharyngitis Right elbow pain Screening for heart disease (09/06/20) CT coronary artery calcium study on 09/06/2020 excellent with calcium score of 0 Seborrhea Solitary pulmonary nodule on lung CT (09/10/20) 6 mm solitary lung nodule noted on coronary artery CT scan 09/10/2020 UTI (urinary tract infection) Surgical History Surgical History (Updated 07/26/20 @ 10:51 by Kevin Little MD) H/O left wrist surgery 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 Family History Family History (Updated 05/15/21 @ 02:39 by Sheba Parada RN) Mother Diabetes mellitus Patient's mother is in good health Family history of glaucoma Family history of hypercholesterolemia Family history of thyroid disease Hypertension Sibling Depression Patient's brother is in good health Family history of Parkinson's disease Family history of tremor Hypertension Father Family history of liver disease, Onset Age: 83 Family history of coronary artery disease Family history of Parkinson's disease Family history of alcoholism Hypertension Asthma Lung cancer Grandparent Family history of Parkinson's disease Family history of rheumatoid arthritis Hypertension Social History Social History Smoking status: Never smoker Alcohol intake: never Substance use: never Gender identity (if verbalized by the patient): Female Spiritual care concerns: No Meds Home Medications and Allergies Home Medications Medication Instructions Recorded Confirmed Type levothyroxine 125 mcg tablet 125 mcg PO DAILY 04/11/19 05/14/21 History irbesartan 150 mg tablet 150 mg PO DAILY #90 tablet 11/22/20 05/14/21 Rx fluticasone furoate 100 1 inh INHALATION DAILY #30 ea 12/11/20 05/14/21 Rx mcg/actuation blister powder for inhalation montelukast 10 mg tablet 10 mg PO QHS #90 tablet 01/19/21 05/14/21 Rx lansoprazole 30 mg capsule,delayed 30 mg PO DAILY #90 cap 05/01/21 05/14/21 Rx release Allergies Allergy/AdvReac Type Severity Reaction Status Date / Time fluconazole [From Diflucan] Allergy Intermediate Hives Verified 05/15/21 02:30 adhesive Al
--- NOTE | 2021-05-15 06:17 | PCRCNOTE ---
pt stated she has a home unit she would like to bring in and use.
[2021-05-15 07:38] LABS: Hemoglobin 12.9 g/dL (12.0-15.0); Immature Granulocyte Absolute 0.03 K/mm3 (0.00-0.031); Immature Granulocyte Percent A 0.8 % (0-0.5); Lymphocytes Absolute Auto 0.48 K/mm3 (0.9-3.2); Lymphocytes Percent Auto 12.2 % (18.3-44.2); Mean Corpuscular HGB Conc 32.3 g/dl (32-36); Mean Corpuscular Hemoglobin 27.9 pg (26-34); Mean Corpuscular Volume 86.4 fl (80-100); Mean Platelet Volume 11.2 fl (7.4-10.4); Monocytes Absolute Auto 0.2 K/mm3 (0.1-0.6); Monocytes Percent Auto 4.1 % (2.6-8.5); Neutrophils Absolute Auto 3.3 K/mm3 (1.3-6.7); Neutrophils Percent Auto 82.9 % (45.5-73.1); Platelet Count Result 183 k/mm3 (150-375); Red Blood Count 4.63 M/mm3 (4.2-5.4); Red Cell Distribution Width 13.6 % (11.5-14.5); White Blood Count 3.9 K/mm3 (4.5-10.0)
[2021-05-15 07:39] LABS: INR 0.9; Prothrombin Time 12.2 Seconds (11.1-14.7)
[2021-05-15 07:52] LABS: Alanine Aminotransferase 28 U/L (4-35); Albumin Level 3.9 g/dL (3.5-5.1); Alkaline Phosphatase 70 U/L (38-126); Anion Gap 10 mmol/L (8-16); Aspartate Amino Transferase 40 U/L (14-36); Bilirubin,Total 0.3 mg/dL (0.2-1.3); Blood Urea Nitrogen 17 mg/dL (7-17); Calcium 8.4 mg/dL (8.4-10.2); Carbon Dioxide 22 mmol/L (22-30); Chloride 101 mmol/L (98-107); Estimated CRCL calculation 66 ml/min; Estimated Glomerular Filt Rate 57; Glucose 143 mg/dL (65-110); Potassium 4.3 mmol/L (3.4-5.0); Sodium 133 mmol/L (137-145)
[2021-05-15] MEDS: cefTRIAXone 2 GM in SODIUM CHLORIDE 0.9% IV 100 ML 200 ML IVPB (08:57)
[2021-05-15] MEDS: PANTOPRAZOLE 40 MG TABLET PO (08:58)
[2021-05-15] MEDS: LEVOTHYROXINE SODIUM 125 MCG TABLET PO (08:59)
[2021-05-15] MEDS: IRBESARTAN 150 MG TABLET PO (08:59)
[2021-05-15] MEDS: ENOXAPARIN 40 MG/0.4 ML SYRINGE SUB-Q (08:59)
[2021-05-15] MEDS: SODIUM CHLORIDE 0.9% IV 250 ML 30 ML IV CONT (09:42)
[2021-05-15] MEDS: REMDESIVIR 200 MG/NS 250 ML 200 MG/250 ML BAG 250 MG IVPB (10:18)
--- NOTE | 2021-05-15 15:07 | PM.IMPN ---
Progress Note: A&P Assessment and Plan (1) Acute respiratory failure with hypoxia: Code(s): J96.01 - Acute respiratory failure with hypoxia Status: Acute Assessment and Plan: Patient presents with shortness of breath. She was diagnosed with COVID last week. CT chest showing moderate amount of bilateral airspace disease. No ABG. She is on supplemental O2. Requested she lay prone as she tolerates. Supplemental O2 to keep SpO2>92%. Wean as tolerated. Add Albuterol HFA (2) Pneumonia due to COVID-19 virus: Code(s): U07.1 - COVID-19; J12.82 - Pneumonia due to coronavirus disease 2018 Status: Acute Assessment and Plan: Patient was COVID positive Apr 2020. She is unvaccinated. She tested positive again for COVID on 05/10/21. She presents with complaints of SOB. Decadron and Remdesivir given in the ED. She was given Convalescent Plasma 05/15 and continued on Remdeisivir. She is not declining steroids so will continue Decadron. CRP 8.8 but she received monoclonal Ab as outpatient (05/14). Will repeat CXR. Continue supportive care. Encouraged her to lay prone (3) Essential (primary) hypertension: Code(s): I10 - Essential (primary) hypertension Status: Acute Assessment and Plan: Patient's blood pressure was reviewed on 05/15 Blood pressure remains soft. Will hold Losartan for now. Follow closely. (4) ROBERTO (obstructive sleep apnea): Code(s): G47.33 - Obstructive sleep apnea (adult) (pediatric) Status: Acute Assessment and Plan: Patient wears CPAP at home. Will hold this for now given that she has COVID. (5) Fatty liver disease, nonalcoholic: Onset Date: 04/02/21 Code(s): K76.0 - Fatty (change of) liver, not elsewhere classified Status: Acute Assessment and Plan: Hepatic steatosis again noted by CT scan. AST slightly elevated o/w LFTs normal. Monitor LFTs on Remdesivir (6) Hypothyroid: Code(s): E03.9 - Hypothyroidism, unspecified Status: Acute Assessment and Plan: Stable. Continue levothyroxine. Check TSH (7) DVT prophylaxis: Code(s): Z29.9 - Encounter for prophylactic measures, unspecified Status: Acute Assessment and Plan: Lovenox Subjective Date/time seen: 05/15/21 15:07 Interval history: 55yo female with hx of HTN and hypothyroidism here for shortness of breath felt related to COVID PNA. She was diagnosed with COVID on 05/10. She is unvaccinated. Chart reviewed. Assuming care. No CP. SOB better. Cough persistent with some improvement. Walking to the bathroom. She did receive monoclonal Ab prior to admission. Exam Narrative: AF 98.7 100/42 70 18 85% 3L Gen - NARD lying almost flat in bed Chest - bibasilar inspiratory dry crackles, nml RR CV - RRR S1/S2 Abd - Soft, NT/ND, Positive BS Ext - No pedal edema Neuro - Alert and oriented. Nonfocal exam. Psych - Nml mood and affect Skin - Warm and dry Objective Data Vital Signs Vital Signs: Vital Signs - 24 hr 05/14/21 20:40 05/14/21 22:00 05/15/21 02:06 Temperature 98.3 F 98.3 F Pulse Rate 94 81 80 Respiratory Rate 20 18 20 Blood Pressure 109/58 L Pulse Oximetry 95 95 94 05/15/21 02:31 05/15/21 04:00 05/15/21 04:43 Temperature 96.1 F L 97.2 F L Pulse Rate 67 64 Respiratory Rate 16 16 Blood Pressure 111/59 L 114/45 L Pulse Oximetry 92 92 96 05/15/21 08:00 05/15/21 13:38 05/15/21 13:53 Temperature 97.5 F L 98.6 F 98.0 F Pulse Rate 69 76 68 Respiratory Rate 18 18 16 Blood Pressure 125/76 100/54 L 100/59 L Pulse Oximetry 90 91 90 05/15/21 13:59 Temperature 99.0 F Pulse Rate 76 Respiratory Rate 18 Blood Pressure 93/58 L Pulse Oximetry 91 Intake/Output Intake/Output: Intake & Output 05/12/21 05/13/21 05/14/21 05/15/21 23:59 23:59 23:59 23:59 Intake Total 1100 580 Balance 1100 580 Meds/Results Medications: Active Medications Generic Name Dose Route Start Last Admin T
[2021-05-15] MEDS: SODIUM CHLORIDE 0.9% IV 250 ML 30 ML (15:34)
[2021-05-15] MEDS: SIMETHICONE 80 MG TAB.CHEW PO ×2 (17:43→22:23)
[2021-05-15] MEDS: NYSTATIN 100,000 UNITS/ML SUSP 5 ML ORAL.SUSP PO ×2 (17:43→22:23)
--- NOTE | 2021-05-15 18:20 | PC.NURSE ---
Patient stated her last covid test was a home kit she had purchased.
[2021-05-15 20:26] LABS: SARS-CoV-2 RNA PCR Positive
[2021-05-15] MEDS: MONTELUKAST SODIUM 10 MG TABLET PO (21:00)
[2021-05-15] MEDS: MICONAZOLE NITRATE 2% VAGINAL CREAM 45 GM TUBE 1 APPFUL VAGINAL (22:23)
[2021-05-16] VITALS (15 sets, daily range): BP systolic 96–145; BP diastolic 44–67; PULSE 58–90; RESP 18–32; TEMP 36.3–37.4; O2SAT 90–99
[2021-05-16] MEDS: ALBUTEROL SULFATE (*SP) INHALER 2 PUFF INHALATION ×3 (03:48→21:04)
[2021-05-16 07:25] LABS: Hematocrit 36.7 % (37.0-47.0); Immature Granulocyte Absolute 0.03 K/mm3 (0.00-0.031); Immature Granulocyte Percent A 0.5 % (0-0.5); Lymphocytes Absolute Auto 0.44 K/mm3 (0.9-3.2); Lymphocytes Percent Auto 6.7 % (18.3-44.2); Mean Corpuscular HGB Conc 32.7 g/dl (32-36); Mean Corpuscular Hemoglobin 28.6 pg (26-34); Mean Corpuscular Volume 87.4 fl (80-100); Mean Platelet Volume 11.9 fl (7.4-10.4); Monocytes Absolute Auto 0.4 K/mm3 (0.1-0.6); Monocytes Percent Auto 5.6 % (2.6-8.5); Neutrophils Absolute Auto 5.8 K/mm3 (1.3-6.7); Neutrophils Percent Auto 87.2 % (45.5-73.1); Platelet Count Result 172 k/mm3 (150-375); Red Cell Distribution Width 13.5 % (11.5-14.5); White Blood Count 6.6 K/mm3 (4.5-10.0)
[2021-05-16 07:39] LABS: Potassium 3.7 mmol/L (3.4-5.0)
[2021-05-16 07:42] LABS: Prothrombin Time 12.6 Seconds (11.1-14.7)
[2021-05-16 07:46] LABS: Alanine Aminotransferase 29 U/L (4-35); Albumin Level 3.6 g/dL (3.5-5.1); Alkaline Phosphatase 68 U/L (38-126); Anion Gap 8 mmol/L (8-16); Aspartate Amino Transferase 41 U/L (14-36); Bilirubin,Total 0.3 mg/dL (0.2-1.3); Blood Urea Nitrogen 20 mg/dL (7-17); CRP 4.2 mg/dL (<1.0); Calcium 8.3 mg/dL (8.4-10.2); Carbon Dioxide 23 mmol/L (22-30); Chloride 100 mmol/L (98-107); Creatine Kinase 87 U/L (30-135); Estimated CRCL calculation 72 ml/min; Estimated Glomerular Filt Rate > 60; Glucose 143 mg/dL (65-110); Lactate Dehydrogenase 1000 U/L (313-618); Magnesium 2.3 mg/dL (1.6-2.3); Phosphorus 3.4 mg/dL (2.5-4.5); Sodium 131 mmol/L (137-145)
[2021-05-16] MEDS: cefTRIAXone 2 GM in SODIUM CHLORIDE 0.9% IV 100 ML 200 ML IVPB (08:19)
[2021-05-16] MEDS: SIMETHICONE 80 MG TAB.CHEW PO ×3 (08:20→22:03)
[2021-05-16] MEDS: LEVOTHYROXINE SODIUM 125 MCG TABLET PO (08:21)
[2021-05-16] MEDS: NYSTATIN 100,000 UNITS/ML SUSP 5 ML ORAL.SUSP PO ×2 (08:21→22:03)
[2021-05-16] MEDS: ENOXAPARIN 40 MG/0.4 ML SYRINGE SUB-Q (08:21)
[2021-05-16] MEDS: PANTOPRAZOLE 40 MG TABLET PO (08:21)
--- NOTE | 2021-05-16 09:11 | PM.IMPN ---
Progress Note: A&P Assessment and Plan (1) Acute respiratory failure with hypoxia: Code(s): J96.01 - Acute respiratory failure with hypoxia Status: Acute Assessment and Plan: Patient presents with shortness of breath. She was diagnosed with COVID last week. CT chest showing moderate amount of bilateral airspace disease. CXR looks worse. She is on supplemental O2 with increasing O2 requirement. Requested she lay prone as she tolerates. Supplemental O2 to keep SpO2>92%. Wean as tolerated. Continue Albuterol HFA. Move to IMU for possible AirVo. 40 minutes spent critical care time (2) Pneumonia due to COVID-19 virus: Code(s): U07.1 - COVID-19; J12.82 - Pneumonia due to coronavirus disease 2018 Status: Acute Assessment and Plan: Patient was COVID positive Apr 2020. She is unvaccinated. She was symptomatic of 05/09/21 and tested positive again for COVID on 05/10/21. She received REGEN-COV (casirivimab and imdevimab) monoclonal Ab on 05/14 and presented to the ED later that night with complaints of SOB. Decadron and Remdesivir given in the ED. She was given Convalescent Plasma 05/15 and continued on Remdesivir and Decadron. CRP was 8.8 and Ferritin 260. Repeat CXR reviewed and worsening. More hypoxic as well. Could not find a contraindication for Remdesivir after receiving REGEN-COV .Discussed with pharmacy yesterday as well and they could not find a contraindication. Patient is not a candidate for Tocizilmab or Baricitinib. Continue supportive care. Encouraged her to lay prone. Move to IMU (3) Essential (primary) hypertension: Code(s): I10 - Essential (primary) hypertension Status: Acute Assessment and Plan: Patient's blood pressure was reviewed on 05/16 Blood pressure remains soft. Losartan remains on hold. Follow closely. (4) ROBERTO (obstructive sleep apnea): Code(s): G47.33 - Obstructive sleep apnea (adult) (pediatric) Status: Acute Assessment and Plan: Patient wears CPAP at home. Will hold this for now given that she has COVID. (5) Fatty liver disease, nonalcoholic: Onset Date: 04/02/21 Code(s): K76.0 - Fatty (change of) liver, not elsewhere classified Status: Acute Assessment and Plan: Hepatic steatosis again noted by CT scan. AST slightly elevated and stable o/w LFTs normal. Monitor LFTs on Remdesivir (6) Hypothyroid: Code(s): E03.9 - Hypothyroidism, unspecified Status: Acute Assessment and Plan: TSh normal Continue levothyroxine. (7) DVT prophylaxis: Code(s): Z29.9 - Encounter for prophylactic measures, unspecified Status: Acute Assessment and Plan: Lovenox Subjective Date/time seen: 05/16/21 09:11 Interval history: 55yo female with hx of HTN and hypothyroidism here for shortness of breath felt related to COVID PNA. She was diagnosed with COVID on 05/10. She is unvaccinated. No chest pain. More short of breath overnight. Increasing oxygen requirement overnight as well. Cough is minimal. Further nausea or diarrhea. Exam Narrative: AF 97.3 96/47 69 18 91% 15L Gen - NARD lying semi-recumbent in bed Chest - bibasilar inspiratory dry crackles mid and lower lung co[place], nml RR CV - RRR S1/S2 Abd - Soft, NT/ND, Positive BS Ext - No pedal edema Psych - tearful at times but appropriate. Skin - Warm and dry Objective Data Vital Signs Vital Signs: Vital Signs - 24 hr 05/15/21 13:38 05/15/21 13:53 05/15/21 13:59 Temperature 98.6 F 98.0 F 99.0 F Pulse Rate 76 68 76 Respiratory Rate 18 16 18 Blood Pressure 100/54 L 100/59 L 93/58 L Pulse Oximetry 91 90 91 05/15/21 14:00 05/15/21 16:00 05/15/21 20:00 Temperature 98.7 F 97.5 F L Pulse Rate 70 69 Respiratory Rate 18 18 Blood Pressure 100/42 L 125/76 Pulse Oximetry 85 L 90 90 05/15/21 20:24 05/15/21 23:27 05/16/21 00:00 Temperature 99.1 F 99.4 F Pulse Rate 85 91 70 Respiratory Rate 18 24 H 18 Blood Pr
[2021-05-16] MEDS: FLUTICASONE PROP 110 MCG INHALER 12 GM (*SP) 2 PUFF INHALATION ×2 (09:20→21:03)
--- NOTE | 2021-05-16 09:37 | PCRCNOTE ---
Placed patient on High flow therapy at 0919. Patient said she cannot tolerate the heated humidity. I turned the temp down as low as it could go. Patient states that she still cannot tolerate it and wanted to go back on the 15 high flow nasal cannula. Placed patient back on the 15L high flow nasal cannula. Patient saturation is at 92%. Patient states that she feels much better being on the high flow cannula, does not want to wear the high flow therapy. Airvo machine left on standby in room.
--- NOTE | 2021-05-16 11:02 | PC.NURSE ---
Pt transferred to IMU 231 via bed
[2021-05-16] MEDS: REMDESIVIR 100 MG/NS 250 ML 100 MG/250 ML BAG 250 MG IVPB (11:31)
[2021-05-16 11:50] LABS: Troponin I < 0.012 ng/mL (0.000-0.034)
--- NOTE | 2021-05-16 13:14 | PM.CNPUL ---
Assessment and Plan Assessment and plan (1) Pneumonia due to COVID-19 virus: Code(s): U07.1 - COVID-19; J12.82 - Pneumonia due to coronavirus disease 2019 Status: Acute Assessment and Plan: Patient tested positive for COVID-19 on 05/15 and Received monoclonal antibody on 05/14. started on remdesivir 05/15, dexamethasone on 05/14 And I have ordered baracitinib today on 05/16 As she is now on BiPAP. - Remdesivir for 10 days Unless he should recover and tolerate room air with rest, ambulation and while sleeping. - Dexamethasone 6 mg IV for 10 days - Baricitinib 4 mg PO Q day X 14 days or until discharged - Continuous pulse oximetry - Prone positioning as tolerated. - Avoid any fluid overload. - emperic azihtromycin and ceftraixone for possible CAP. - flovent 110 at 2 puffs Q 12 and albuterol inhaler 2 puffs Q 4 for now, no wheezes. - Will check influenza swab. Keep saturations are 90-94% with either nasal cannula up to 15 L plus 15 L NRB or with BiPAP (can't tolerate Airvo). I discussed code status with patient and she wants to think about if she would want to be intubated. (2) Acute respiratory failure with hypoxia: Code(s): J96.01 - Acute respiratory failure with hypoxia Status: Acute Assessment and Plan: Etiology of hypoxic respiratory failure is COVID pneumonia. I will check echo on 05/17/2105/14 20:00 Room air with sats 95%. 05/15 04:00 3 L nasal cannula with sats 92%. 05/15 20:00 15 L nasal cannula with sats 90%. 05/16 08:00 15 L nasal cannula with sats 90%, failed Airvo. 05/16 13:00 BiPAP rate of 12, 14/6, inspiratory time 1, rise 3 with tidal volumes of 600 and 85% FiO2 with saturations 97%. Will follow with you History of Present Illness History of Present Illness Consult date: 05/16/21 Requesting physician: Hussein Cameron MD Reason for consult: hypoxemia and other (COVID pneumonia) Chief complaint: COVID Pneumonia, Hypoxia Narrative: 55-year-old with a history of vertigo, COVID in 04/2020 With only GI symptoms and no respiratory symptoms, patient did not get hospitalized or vaccinated, RAD treated with anuity and told she did not have asthma, GERD, was exposed to family members at [facility] who subsequently tested positive for COVID (, son and his and 2 kids, daughter and her 3 kids allpositive) and went to get mopnoclonal antoibody treatment on 05/14 at [facility] and then went home. She had worse SOB and presented to the emergency department on 05/14 with fever, chills, aches, diarrhea and shortness of breath. Patient tested positive for COVID on 05/15/2021. Patient had positive D-dimer 0.[address] angiogram of the chest on 05/14 that demonstrated no pulmonary edema but diffuse multifocal patchy alveolar infiltrates consistent with acute COVID pneumonia. Patient initially was on room air with saturations 95%. On 05/15 she required 3 L nasal cannula oxygen at 4 in the morning. On 05/15 at 8:00 p.m. patient requires 15 L nasal cannula oxygen. On 05/16 patient required high flow nasal cannula oxygen with an AIRVO for hypoxemia but she could not tolerate this and was placed back to on 15 L nasal cannula. patient was transferred to IMU and placed on BiPAP for hypoxemia at approximately 13:00. Patient is treated with ceftriaxone and azithromycin 1st dose on 05/15. Patient received dexamethasone 1st dose on 05/14, patient received first Remdesivir 05/15. 05/16 The patient is currently on BiPAP rate of 12, 14/6, inspiratory time 1, rise 3 with tidal volumes of 600 and 85% FiO2 with saturations 97%. Patient did state that the BiPAP to help her breathe. She is awake alert and communicative. Patient states that since her arrival to the hospital she feels like she has worsening shortness of breath and dyspnea on exertion. She does state the fever is better and she is afebrile for the last 24 hours. DATA EXAMINATION: CTA chest
[2021-05-16 15:40] LABS: Base Excess ABG 0.3 mEq/l (+/-2.0); Fractional Inspired Oxygen 90 %; HCO3 ABG 23.8 mEq/l (22.0-26.0); Oxygen Saturation ABG 97.6 % (95.0-100.0); Oxyhemoglobin 95.8 % THb (90.0-100.0); PCO2 ABG 34.8 mmHg (35.0-45.0); PO2 FiO2 Ratio Arterial Blood 1.06 %; Site Drawn RIGHT RADIAL; Total Hemoglobin 13.3 g/dL (12.0-18.0); pH ABG 7.452 (7.350-7.450)
[2021-05-16 15:41] LABS: Device BIPAP; Expiratory Pressure 8 cmH2O; Inspiratory Pressure 14 cmH2O; Modified Allen's Test Pass
[2021-05-16] MEDS: BARICITINIB 2 MG TABLET 4 MG PO (17:54)
[2021-05-16] MEDS: MONTELUKAST SODIUM 10 MG TABLET PO (22:02)
[2021-05-17] VITALS (20 sets, daily range): BP systolic 102–111; BP diastolic 57–64; PULSE 52–67; RESP 16–36; TEMP 36.4–37.2; O2SAT 91–100
[2021-05-17] MEDS: ALBUTEROL SULFATE (*SP) INHALER 2 PUFF INHALATION ×3 (02:47→14:21)
[2021-05-17 05:18] LABS: Hematocrit 36.8 % (37.0-47.0); Hemoglobin 11.9 g/dL (12.0-15.0); Immature Granulocyte Absolute 0.02 K/mm3 (0.00-0.031); Immature Granulocyte Percent A 0.5 % (0-0.5); Lymphocytes Absolute Auto 0.53 K/mm3 (0.9-3.2); Lymphocytes Percent Auto 12.3 % (18.3-44.2); Mean Corpuscular HGB Conc 32.3 g/dl (32-36); Mean Corpuscular Hemoglobin 28.5 pg (26-34); Mean Corpuscular Volume 88.2 fl (80-100); Mean Platelet Volume 11.4 fl (7.4-10.4); Monocytes Absolute Auto 0.5 K/mm3 (0.1-0.6); Monocytes Percent Auto 10.9 % (2.6-8.5); Neutrophils Absolute Auto 3.3 K/mm3 (1.3-6.7); Neutrophils Percent Auto 76.3 % (45.5-73.1); Platelet Count Result 186 k/mm3 (150-375); Red Blood Count 4.17 M/mm3 (4.2-5.4); Red Cell Distribution Width 13.5 % (11.5-14.5); White Blood Count 4.3 K/mm3 (4.5-10.0)
[2021-05-17 05:31] LABS: Alanine Aminotransferase 29 U/L (4-35); Albumin Level 3.3 g/dL (3.5-5.1); Alkaline Phosphatase 65 U/L (38-126); Anion Gap 6 mmol/L (8-16); Aspartate Amino Transferase 43 U/L (14-36); Bilirubin,Total 0.3 mg/dL (0.2-1.3); Blood Urea Nitrogen 18 mg/dL (7-17); Calcium 8.2 mg/dL (8.4-10.2); Carbon Dioxide 26 mmol/L (22-30); Chloride 102 mmol/L (98-107); Creatine Kinase 53 U/L (30-135); Estimated CRCL calculation 81 ml/min; Estimated Glomerular Filt Rate > 60; Glucose 150 mg/dL (65-110); Lactate Dehydrogenase 1576 U/L (313-618); Potassium 4.1 mmol/L (3.4-5.0); Sodium 134 mmol/L (137-145)
[2021-05-17 05:32] LABS: Prothrombin Time 13.1 Seconds (11.1-14.7)
[2021-05-17 05:37] LABS: NT Pro B Type Natriuretic Pept 520 pg/mL (5-100)
[2021-05-17] MEDS: cefTRIAXone 2 GM in SODIUM CHLORIDE 0.9% IV 100 ML 200 ML IVPB (05:42)
[2021-05-17] MEDS: LEVOTHYROXINE SODIUM 125 MCG TABLET PO (05:43)
[2021-05-17 06:29] LABS: Magnesium 2.6 mg/dL (1.6-2.3); Phosphorus 3.8 mg/dL (2.5-4.5)
[2021-05-17] MEDS: PANTOPRAZOLE 40 MG TABLET PO (08:54)
[2021-05-17] MEDS: ENOXAPARIN 40 MG/0.4 ML SYRINGE SUB-Q (08:54)
[2021-05-17] MEDS: NYSTATIN 100,000 UNITS/ML SUSP 5 ML ORAL.SUSP PO ×3 (08:54→20:19)
[2021-05-17] MEDS: SIMETHICONE 80 MG TAB.CHEW PO ×3 (08:54→20:20)
[2021-05-17] MEDS: FLUTICASONE PROP 110 MCG INHALER 12 GM (*SP) 2 PUFF INHALATION (10:33)
--- NOTE | 2021-05-17 10:40 | PM.PNPUL ---
Progress Note: A&P Assessment and Plan (1) Pneumonia due to COVID-19 virus: Code(s): U07.1 - COVID-19; J12.82 - Pneumonia due to coronavirus disease 2019 Status: Acute Assessment and Plan: Patient tested positive for COVID-19 on 05/15 and Received monoclonal antibody on 05/14. started on remdesivir 05/15, dexamethasone on 05/14 And I have ordered baracitinib today on 05/16 As she is now on BiPAP. - Remdesivir for 10 days Unless he should recover and tolerate room air with rest, ambulation and while sleeping. - Dexamethasone 6 mg IV for 10 days - Baricitinib 4 mg PO Q day on hold depending discussion with patient - Continuous pulse oximetry - Prone positioning as tolerated. - Avoid any fluid overload. - emperic azihtromycin and ceftraixone for possible CAP. - flovent 110 at 2 puffs Q 12 and albuterol inhaler 2 puffs Q 4 for now, no wheezes. - Will check influenza swab. Keep saturations are 90-94% with either nasal cannula up to 15 L plus 15 L NRB or with BiPAP (can't tolerate Airvo). I discussed code status with patient and she wants to think about if she would want to be intubated. 05/17 patient remained on BiPAP rate of 12, 14/6 90% FiO2 with saturations 91-98 overnight. Overall patient states she feels about the same as yesterday and maybe a slight improvement in her breathing. White blood cell count is 4.3. PAtient cannot tolerate high-flow airflow and I placed her on a high-flow nasal cannula at 15 L in over the next 5 minutes she had desaturations to 84% and BiPAP was placed back on. I attempted to place her on noninvasive ventilation with the AVAPS mode but she felt that straight BiPAP was more comfortable for her. Patient received region around and we had a discussion about the addition of baricitinib and at this time she wishes to hold off on adding this medication. Continue remdesivir and dexamethasone. (2) Acute respiratory failure with hypoxia: Code(s): J96.01 - Acute respiratory failure with hypoxia Status: Acute Assessment and Plan: Etiology of hypoxic respiratory failure is COVID pneumonia. I will check echo on 05/17/2105/14 20:00 Room air with sats 95%. 12/8 04:00 3 L nasal cannula with sats 92%. 05/15 20:00 15 L nasal cannula with sats 90%. 05/16 08:00 15 L nasal cannula with sats 90%, failed Airvo. 05/16 13:00 BiPAP rate of 12, 14/6, inspiratory time 1, rise 3 with tidal volumes of 600 and 85% FiO2 with saturations 97%. 05/17 08:00 BiPAP rate of 12, 14/6, FIO2 90% with saturations 99%. Will follow with you Subjective Date/time seen: 05/17/21 10:40 Interval history: 05/16/21 This is a new Pulmonary consultation for COVID Pneumonia, Hypoxia Narrative: 55-year-old with a history of vertigo, COVID in 04/2020 With only GI symptoms and no respiratory symptoms, patient did not get hospitalized or vaccinated, RAD treated with anuity and told she did not have asthma, GERD, was exposed to family members at [facility] who subsequently tested positive for COVID (, son and his and 2 kids, daughter and her 3 kids allpositive) and went to get mopnoclonal antoibody treatment on 05/14 at [facility] and then went home. She had worse SOB and presented to the emergency department on 05/14 with fever, chills, aches, diarrhea and shortness of breath. Patient tested positive for COVID on 05/15/2021. Patient had positive D-dimer 0.[address] angiogram of the chest on 05/14 that demonstrated no pulmonary edema but diffuse multifocal patchy alveolar infiltrates consistent with acute COVID pneumonia. Patient initially was on room air with saturations 95%. On 05/15 she required 3 L nasal cannula oxygen at 4 in the morning. On 05/15 at 8:00 p.m. patient requires 15 L nasal cannula oxygen. On 05/16 patient required high flow nasal cannula oxygen with an AIRVO for hypoxemia but she could not tolerate this and was placed back to on 15 L nasal cannula. patient wa
--- NOTE | 2021-05-17 11:07 | PM.IMPN ---
Progress Note: A&P Assessment and Plan (1) Acute respiratory failure with hypoxia: Code(s): J96.01 - Acute respiratory failure with hypoxia Status: Acute Assessment and Plan: Patient presents with shortness of breath. She was diagnosed with COVID last week. CT chest showing moderate amount of bilateral airspace disease. She is on supplemental O2 with increasing O2 requirement. She was moved to the IMU. AirVo attempted but she could not tolerate so changed to BiPAP. Requested she lay prone as she tolerates. Continue Albuterol HFA. Wean FiO2 as toelrated in the hopes of getting her to a HFNC at some point today. Appreciate Pulmonary input. updated with patient permission. (2) Pneumonia due to COVID-19 virus: Code(s): U07.1 - COVID-19; J12.82 - Pneumonia due to coronavirus disease 2018 Status: Acute Assessment and Plan: Patient was COVID positive in Apr 2020. She is unvaccinated. She became symptomatic of 05/09/21 and tested positive again for COVID on 05/10/21. She received REGEN-COV (casirivimab and imdevimab) monoclonal Ab on 05/14 and presented to the ED later that night with complaints of SOB. Decadron and Remdesivir given in the ED. She was given Convalescent Plasma 05/15 and continued on Remdesivir and Decadron. CTA Chest showing no PE but moderate amount of airspace disease. She became more hypoxic and she was moved to IMU. She was placed on BiPAP. Encouraged her to lay prone. CRP better but LDH worse. Mild leukopenia noted related to COVID . Continue to wean O2 as toerlated. Continue Decadron and Remdesivir. Remains of antibiotics but doubt bacterial PNA - stop? Consider Baricitinib but concern given recent monoclonal Ab use. (3) Essential (primary) hypertension: Code(s): I10 - Essential (primary) hypertension Status: Acute Assessment and Plan: Patient's blood pressure was reviewed on 05/17 Blood pressure remains soft but improved overall. Losartan remains on hold. Follow closely. (4) ROBERTO (obstructive sleep apnea): Code(s): G47.33 - Obstructive sleep apnea (adult) (pediatric) Status: Acute Assessment and Plan: As above. (5) Fatty liver disease, nonalcoholic: Onset Date: 04/02/21 Code(s): K76.0 - Fatty (change of) liver, not elsewhere classified Status: Acute Assessment and Plan: Hepatic steatosis again noted by CT scan. AST slightly elevated and stable o/w LFTs normal. Monitor LFTs on Remdesivir (6) Hypothyroid: Code(s): E03.9 - Hypothyroidism, unspecified Status: Acute Assessment and Plan: TSH normal. Continue levothyroxine. (7) DVT prophylaxis: Code(s): Z29.9 - Encounter for prophylactic measures, unspecified Status: Acute Assessment and Plan: Lovenox Subjective Date/time seen: 05/17/21 11:07 Interval history: 55yo female with hx of HTN and hypothyroidism here for shortness of breath felt related to COVID PNA. She was diagnosed with COVID on 05/10. She is unvaccinated. Patient feels better today. She denies significant cough now. No chest pain. Shortness of breath is improved. She was unable to tolerate the Airvo yesterday so she was started on BiPAP. She was able to tolerate the BiPAP overnight. Her oxygenation has improved with plans to wean her down to high-flow nasal cannula as she tolerates. Exam Narrative: AF 97.8 106/61 65 28 93% BiPAP (rate 12, 14/6, TV 528, 90%) Gen - WNWD female lying semi-recumbent in bed Chest - improved air exchange bilaterally, mildly tachypneic CV - RRR S1/S2 Abd - Soft, NT/ND, Positive BS Ext - No pedal edema Psych - nml mood Skin - Warm and dry Objective Data Vital Signs Vital Signs: Vital Signs - 24 hr 05/16/21 12:00 05/16/21 12:30 05/16/21 16:00 Temperature 98.5 F 98.8 F Pulse Rate 72 70 Respiratory Rate 22 H 32 H Blood Pressure 110/57 L 145/58 H Pulse Oximetry 90 92 97 05/16/21 20:00 05/16
[2021-05-17] MEDS: REMDESIVIR 100 MG/NS 250 ML 100 MG/250 ML BAG 250 MG IVPB (11:44)
[2021-05-17 16:20] LABS: Influenza Control Positive
[2021-05-17] MEDS: MONTELUKAST SODIUM 10 MG TABLET PO (20:19)
[2021-05-18] VITALS (17 sets, daily range): BP systolic 106–131; BP diastolic 48–67; PULSE 45–79; RESP 14–24; TEMP 36.1–37; O2SAT 90–97
[2021-05-18] MEDS: ALBUTEROL SULFATE (*SP) INHALER 2 PUFF INHALATION ×3 (02:20→15:11)
[2021-05-18 05:15] LABS: Prothrombin Time 12.9 Seconds (11.1-14.7)
[2021-05-18 05:19] LABS: Basophils Percent Auto 0.1 % (0.2-1.2); Hematocrit 37.2 % (37.0-47.0); Hemoglobin 11.9 g/dL (12.0-15.0); Immature Granulocyte Absolute 0.07 K/mm3 (0.00-0.031); Immature Granulocyte Percent A 0.9 % (0-0.5); Lymphocytes Absolute Auto 0.65 K/mm3 (0.9-3.2); Lymphocytes Percent Auto 8.1 % (18.3-44.2); Mean Corpuscular Hemoglobin 28.3 pg (26-34); Mean Corpuscular Volume 88.4 fl (80-100); Mean Platelet Volume 11.2 fl (7.4-10.4); Monocytes Absolute Auto 0.8 K/mm3 (0.1-0.6); Monocytes Percent Auto 9.6 % (2.6-8.5); Neutrophils Absolute Auto 6.5 K/mm3 (1.3-6.7); Neutrophils Percent Auto 81.3 % (45.5-73.1); Platelet Count Result 190 k/mm3 (150-375); Red Blood Count 4.21 M/mm3 (4.2-5.4); Red Cell Distribution Width 13.4 % (11.5-14.5)
[2021-05-18 05:27] LABS: Alanine Aminotransferase 31 U/L (4-35); Albumin Level 3.2 g/dL (3.5-5.1); Alkaline Phosphatase 66 U/L (38-126); Anion Gap 5 mmol/L (8-16); Aspartate Amino Transferase 42 U/L (14-36); Bilirubin,Total 0.4 mg/dL (0.2-1.3); Blood Urea Nitrogen 20 mg/dL (7-17); CRP 2.2 mg/dL (<1.0); Calcium 8.1 mg/dL (8.4-10.2); Carbon Dioxide 28 mmol/L (22-30); Chloride 102 mmol/L (98-107); Estimated CRCL calculation 72 ml/min; Estimated Glomerular Filt Rate > 60; Glucose 125 mg/dL (65-110); Lactate Dehydrogenase 1967 U/L (313-618); Sodium 135 mmol/L (137-145)
[2021-05-18] MEDS: LEVOTHYROXINE SODIUM 125 MCG TABLET PO (06:03)
[2021-05-18] MEDS: cefTRIAXone 2 GM in SODIUM CHLORIDE 0.9% IV 100 ML 200 ML IVPB (06:04)
--- NOTE | 2021-05-18 08:00 | ECHO_ITS ---
Patient Info Name: Eunice Mejía Age: 55 years : 1965 Gender: Female Ht: 65 in Wt: 228 lbs BSA: 2.23 m2 HR: 53 bpm BP: 110 / 67 mmHg Heart Rhythm: Sinus Rhythm Technical Quality: Fair Exam Date: 05/18/2021 8:38 AM Exam Location: [facility] Pulmonary Patient Status: Inpatient Admit Date: 05/14/2021 Staff Ordering Physician: Baljit Butterfield MD Public Safety Director: Eleanor Zacarias [facility] Attending Provider: Elahm Gonzales MD Referring Physician: Scout KERN; Exam Type: CA echo doppler color flow Study Info Indications J96.00 - Acute respiratory failure, unspecified whether with hypoxia or hypercapnia Complete two-dimensional, color flow and Doppler transthoracic echocardiogram is performed with contrast to opacify the left ventricle and to improve the deliniation of the left ventricle endocardial borders. Contrast/Agitated Saline Contrast/Ag. Saline: Definity Amount: 4.00 ml Summary 1. Left ventricular chamber dimension is normal. 2. Left ventricular systolic function is mildly reduced, estimated at 45-50%. 3. Left atrial chamber dimension is mildly enlarged. 4. There is mild mitral valve regurgitation. Left Ventricle Left ventricular chamber dimension is normal. Left ventricular systolic function is mildly reduced, estimated at 45-50%. Right Ventricle Right ventricular chamber dimension is normal. Left Atria Left atrial chamber dimension is mildly enlarged. Right Atria Right atrial chamber dimension is normal. Aortic Valve The aortic valve is normal. There is trace aortic valve regurgitation. Pulmonic Valve The pulmonic valve is normal. Mitral Valve The mitral valve has normal leaflets. There is mild mitral valve regurgitation. Tricuspid Valve The tricuspid valve leaflets are normal. Pericardium/Pleural The pericardium appears normal. Aorta The aortic root size at the sinus of Valsalva is normal. Left Ventricular Outflow Tract Name Value Normal LVOT 2D LVOT Diameter 2.3 cm LVOT Doppler LVOT Peak Gradient 5 mmHg LVOT Mean Gradient 2 mmHg LVOT VTI 26 cm LVOT VTI/AV VTI Ratio 0.7 LVOT Stroke Volume 109 ml LVOT CO 5.8 l/min LVOT CI 2.6 l/min/m2 Pulmonic Valve Name Value Normal PV Doppler PV Peak Gradient 3 mmHg Mitral Valve Name Value Normal MV Doppler MV Decel [place] 482 c
--- NOTE | 2021-05-18 08:07 | PM.PNPUL ---
Progress Note: A&P Assessment and Plan (1) Pneumonia due to COVID-19 virus: Code(s): U07.1 - COVID-19; J12.82 - Pneumonia due to coronavirus disease 2019 Status: Acute Assessment and Plan: Patient tested positive for COVID-19 on 05/15 and Received monoclonal antibody Imdevimab 600 mg and casirivimab 600 mg on 05/14. Started on remdesivir 05/15, dexamethasone on 05/14. - Remdesivir for 10 days Unless she should recover and tolerate room air with rest, ambulation and while sleeping. - Dexamethasone 6 mg IV for 10 days - Continuous pulse oximetry - Prone positioning as tolerated. - Avoid any fluid overload. - emperic azihtromycin and ceftraixone for possible CAP. - flovent 110 at 2 puffs Q 12 and albuterol inhaler 2 puffs Q 4 for now, no wheezes. - influenza swab negative. Keep saturations are 90-94% with either nasal cannula up to 15 L plus 15 L NRB or with BiPAP (can't tolerate Airvo). I discussed code status with patient and she wants to think about if she would want to be intubated. 05/17 patient remained on BiPAP rate of 12, 14/6 90% FiO2 with saturations 91-98 overnight. Overall patient states she feels about the same as yesterday and maybe a slight improvement in her breathing. White blood cell count is 4.3. PAtient cannot tolerate high-flow airflow and I placed her on a high-flow nasal cannula at 15 L in over the next 5 minutes she had desaturations to 84% and BiPAP was placed back on. I attempted to place her on noninvasive ventilation with the AVAPS mode but she felt that straight BiPAP was more comfortable for her. Patient received region around and we had a discussion about the addition of baricitinib and at this time she wishes to hold off on adding this medication. Continue remdesivir and dexamethasone. 05/18 Patient currently on BiPAP rate of 12 breathing 25, pressures 14/6, tidal volumes 700-800, 70% FiO2 with saturations 96%. Patient states that she is slightly better than yesterday but continues with a mild cough, no phlegm and no hemoptysis. Patient is afebrile. White blood cell count 8.0, CRP decreased to 2.2. I had patient place her on speaker phone and gave him clinical update. (2) Acute respiratory failure with hypoxia: Code(s): J96.01 - Acute respiratory failure with hypoxia Status: Acute Assessment and Plan: Etiology of hypoxic respiratory failure is COVID pneumonia. I will check echo on 05/17/2105/14 20:00 Room air with sats 95%. 05/15 04:00 3 L nasal cannula with sats 92%. 05/15 20:00 15 L nasal cannula with sats 90%. 05/16 08:00 15 L nasal cannula with sats 90%, failed Airvo. 05/16 13:00 BiPAP rate of 12, 14/6, inspiratory time 1, rise 3 with tidal volumes of 600 and 85% FiO2 with saturations 97%. 05/17 08:00 BiPAP rate of 12, 14/6, FIO2 90% with saturations 99%. 05/17 20:00 BiPAP rate of 12, 14/6, FIO2 60% with saturations 93%. 5 min off BiPAP in AM and 40 min off BiPAP later in day. 05/18 07:00 BiPAP rate of 12, 14/6, FIO2 70% with saturations 96%. Will follow with you Subjective Date/time seen: 05/18/21 08:07 Interval history: 05/16/21 This is a new Pulmonary consultation for COVID Pneumonia, Hypoxia Narrative: 55-year-old with a history of vertigo, COVID in 04/2020 With only GI symptoms and no respiratory symptoms, patient did not get hospitalized or vaccinated, RAD treated with anuity and told she did not have asthma, GERD, was exposed to family members at [facility] who subsequently tested positive for COVID (, son and his and 2 kids, daughter and her 3 kids all positive) and went to get mopnoclonal antoibody treatment on 05/14 at [facility] and then went home. She had worse SOB and presented to the emergency department on 05/14 with fever, chills, aches, diarrhea and shortness of breath. Patient tested positive for COVID on 05/15/2021. Patient had positive D-dimer 0.[address] angiogram of the chest on
[2021-05-18] MEDS: NYSTATIN 100,000 UNITS/ML SUSP 5 ML ORAL.SUSP PO ×4 (09:14→22:12)
[2021-05-18] MEDS: ENOXAPARIN 40 MG/0.4 ML SYRINGE SUB-Q (09:14)
[2021-05-18] MEDS: SIMETHICONE 80 MG TAB.CHEW PO ×4 (09:15→22:12)
[2021-05-18] MEDS: PANTOPRAZOLE 40 MG TABLET PO (09:15)
[2021-05-18] MEDS: FLUTICASONE PROP 110 MCG INHALER 12 GM (*SP) 2 PUFF INHALATION (11:02)
[2021-05-18] MEDS: REMDESIVIR 100 MG/NS 250 ML 100 MG/250 ML BAG 250 MG IVPB (11:03)
--- NOTE | 2021-05-18 11:11 | PM.IMPN ---
Progress Note: A&P Assessment and Plan (1) Acute respiratory failure with hypoxia: Code(s): J96.01 - Acute respiratory failure with hypoxia Status: Acute Assessment and Plan: Patient presents with shortness of breath. She was diagnosed with COVID last week. CT chest showing moderate amount of bilateral airspace disease. She is on supplemental O2 with increasing O2 requirement. She was moved to the IMU. AirVo attempted but she could not tolerate so changed to BiPAP. Requested she lay prone as she tolerates. Continue Albuterol HFA. Wean FiO2 as toelrated in the hopes of getting her to a HFNC at some point today. 05/18 on HFNC with NRB -- sats in mid-80s with patient removes NRB (2) Pneumonia due to COVID-19 virus: Code(s): U07.1 - COVID-19; J12.82 - Pneumonia due to coronavirus disease 2018 Status: Acute Assessment and Plan: Patient was COVID positive in Apr 2020. She is unvaccinated. She became symptomatic of 05/09/21 and tested positive again for COVID on 05/10/21. She received REGEN-COV (casirivimab and imdevimab) monoclonal Ab on 05/14 and presented to the ED later that night with complaints of SOB. Decadron and Remdesivir given in the ED. She was given Convalescent Plasma 05/15 and continued on Remdesivir and Decadron. CTA Chest showing no PE but moderate amount of airspace disease. She became more hypoxic and she was moved to IMU. She was placed on BiPAP. Encouraged her to lie prone. CRP better but LDH worse. Mild leukopenia noted related to COVID . Continue to wean O2 as tolerated. Continue Decadron and Remdesivir. Remains off antibiotics but doubt bacterial PNA. Consider Baricitinib but concern given recent monoclonal Ab use. (3) Essential (primary) hypertension: Code(s): I10 - Essential (primary) hypertension Status: Acute Assessment and Plan: Patient's blood pressure was reviewed on 05/18 Blood pressure remains soft but improved overall. Losartan remains on hold. Follow. (4) ROBERTO (obstructive sleep apnea): Code(s): G47.33 - Obstructive sleep apnea (adult) (pediatric) Status: Acute Assessment and Plan: As above. (5) Fatty liver disease, nonalcoholic: Onset Date: 04/02/21 Code(s): K76.0 - Fatty (change of) liver, not elsewhere classified Status: Acute Assessment and Plan: Hepatic steatosis again noted by CT scan. AST slightly elevated and stable o/w LFTs normal. Monitor LFTs on Remdesivir (6) Hypothyroid: Qualifiers: Hypothyroidism type: unspecified Qualified Code(s): E03.9 - Hypothyroidism, unspecified Code(s): E03.9 - Hypothyroidism, unspecified Status: Acute Assessment and Plan: TSH normal. Continue levothyroxine. (7) DVT prophylaxis: Code(s): Z29.9 - Encounter for prophylactic measures, unspecified Status: Acute Assessment and Plan: Lovenox Subjective Date/time seen: 05/18/21 11:11 Interval history: 05/18 visit: Tired. Minimal cough. MERCEDES with conversation. No chest pain. Mild GI upset, bloating. No anosmia or dysgeusia. Review of Systems Review of Systems: All systems reviewed & are unremarkable except as noted in HPI and below Exam Narrative: Gen - WNWD female lying semi-recumbent in bed Chest - improved air exchange bilaterally, mildly tachypneic CV - RRR S1/S2 Abd - Soft, NT/ND, Positive BS Ext - No pedal edema Psych - nml mood Skin - Warm and dry Objective Data Vital Signs Vital Signs: Vital Signs - 24 hr 05/17/21 12:00 05/17/21 13:30 05/17/21 14:20 Temperature 98.9 F Pulse Rate 57 L 54 L 60 Respiratory Rate 16 20 Blood Pressure 107/64 Pulse Oximetry 96 92 94 05/17/21 15:19 05/17/21 16:00 05/17/21 16:20 Temperature 97.5 F L Pulse Rate 58 L 59 L Respiratory Rate 18 18 Blood Pressure 102/57 L Pulse Oximetry 91 91 93 05/17/21 18:00 05/17/21 20:00 05/17/21 20:25 Temperature 98.3 F Pulse Rate 67 53
[2021-05-18] MEDS: MONTELUKAST SODIUM 10 MG TABLET PO (22:11)
[2021-05-19] VITALS (22 sets, daily range): BP systolic 105–137; BP diastolic 50–71; PULSE 48–87; RESP 14–29; TEMP 36.1–36.8; O2SAT 91–98
[2021-05-19] MEDS: cefTRIAXone 2 GM in SODIUM CHLORIDE 0.9% IV 100 ML 200 ML IVPB (06:07)
[2021-05-19] MEDS: LEVOTHYROXINE SODIUM 125 MCG TABLET PO (06:08)
[2021-05-19 06:29] LABS: Basophils Percent Auto 0.1 % (0.2-1.2); Eosinophils Percent Auto 0.1 % (0-4.4); Hematocrit 38.9 % (37.0-47.0); Hemoglobin 12.7 g/dL (12.0-15.0); Immature Granulocyte Absolute 0.09 K/mm3 (0.00-0.031); Immature Granulocyte Percent A 0.9 % (0-0.5); Lymphocytes Absolute Auto 0.61 K/mm3 (0.9-3.2); Lymphocytes Percent Auto 6.4 % (18.3-44.2); Mean Corpuscular HGB Conc 32.6 g/dl (32-36); Mean Corpuscular Hemoglobin 28.4 pg (26-34); Monocytes Absolute Auto 0.8 K/mm3 (0.1-0.6); Monocytes Percent Auto 8.3 % (2.6-8.5); Neutrophils Absolute Auto 8.1 K/mm3 (1.3-6.7); Neutrophils Percent Auto 84.2 % (45.5-73.1); Platelet Count Result 229 k/mm3 (150-375); Red Blood Count 4.47 M/mm3 (4.2-5.4); Red Cell Distribution Width 13.4 % (11.5-14.5); White Blood Count 9.6 K/mm3 (4.5-10.0)
[2021-05-19 06:40] LABS: Alanine Aminotransferase 31 U/L (4-35); Anion Gap 4 mmol/L (8-16); Aspartate Amino Transferase 37 U/L (14-36); Blood Urea Nitrogen 20 mg/dL (7-17); Calcium 7.9 mg/dL (8.4-10.2); Carbon Dioxide 31 mmol/L (22-30); Chloride 101 mmol/L (98-107); Estimated CRCL calculation 81 ml/min; Estimated Glomerular Filt Rate > 60; Glucose 106 mg/dL (65-110); Potassium 3.7 mmol/L (3.4-5.0); Prothrombin Time 13.1 Seconds (11.1-14.7); Sodium 136 mmol/L (137-145)
[2021-05-19] MEDS: ENOXAPARIN 40 MG/0.4 ML SYRINGE SUB-Q (09:16)
[2021-05-19] MEDS: SIMETHICONE 80 MG TAB.CHEW PO (09:16)
[2021-05-19] MEDS: NYSTATIN 100,000 UNITS/ML SUSP 5 ML ORAL.SUSP PO ×4 (09:16→21:25)
[2021-05-19] MEDS: PANTOPRAZOLE 40 MG TABLET PO (09:17)
--- NOTE | 2021-05-19 09:41 | PM.IMPN ---
Progress Note: A&P Assessment and Plan (1) Acute respiratory failure with hypoxia: Code(s): J96.01 - Acute respiratory failure with hypoxia Status: Acute Assessment and Plan: Patient presents with shortness of breath. She was diagnosed with COVID early May. CT chest showing moderate amount of bilateral airspace disease. She is on supplemental O2 with increasing O2 requirement. AirVo attempted but she could not tolerate so changed to BiPAP. Requested she lay prone as she tolerates. Continue Albuterol HFA. 05/18 on HFNC with NRB -- sats in mid-80s 05/18 PM back on BiPAP Continue to monitor progress (2) Pneumonia due to COVID-19 virus: Code(s): U07.1 - COVID-19; J12.82 - Pneumonia due to coronavirus disease 2018 Status: Acute Assessment and Plan: Patient was COVID positive in Apr 2020. She is unvaccinated. She became symptomatic of 05/09/21 and tested positive again for COVID on 05/10/21. She received REGEN-COV (casirivimab and imdevimab) monoclonal Ab on 05/14 and presented to the ED later that night with complaints of SOB. Decadron and Remdesivir given in the ED. She was given Convalescent Plasma 05/15 and continued on Remdesivir and Decadron. CTA Chest showing no PE but moderate amount of airspace disease. She became more hypoxic and she was moved to IMU. She was placed on BiPAP. Encouraged her to lie prone. Mild leukopenia noted related to COVID . Continue to support with supplemental oxygen. Continue Decadron and Remdesivir. Remains off antibiotics but doubt bacterial PNA. Consider Baricitinib but concern given recent monoclonal Ab use. (3) Essential (primary) hypertension: Code(s): I10 - Essential (primary) hypertension Status: Acute Assessment and Plan: Patient's blood pressure was reviewed on 05/19 Blood pressure remains soft but improved overall. Losartan remains on hold. Follow. (4) ROBERTO (obstructive sleep apnea): Code(s): G47.33 - Obstructive sleep apnea (adult) (pediatric) Status: Acute Assessment and Plan: As above. (5) Fatty liver disease, nonalcoholic: Onset Date: 04/02/21 Code(s): K76.0 - Fatty (change of) liver, not elsewhere classified Status: Acute Assessment and Plan: Hepatic steatosis again noted by CT scan. AST slightly elevated and stable o/w LFTs normal. Monitor LFTs on Remdesivir (6) Hypothyroid: Qualifiers: Hypothyroidism type: unspecified Qualified Code(s): E03.9 - Hypothyroidism, unspecified Code(s): E03.9 - Hypothyroidism, unspecified Status: Acute Assessment and Plan: TSH normal. Continue levothyroxine. (7) DVT prophylaxis: Code(s): Z29.9 - Encounter for prophylactic measures, unspecified Status: Acute Assessment and Plan: Lovenox Subjective Date/time seen: 05/19/21 09:41 Interval history: 05/19 visit: Back on BiPAP last night. Sats low on 15 L high flow and 15L mask. Tired. Minimal cough. MERCEDES with conversation. No chest pain. Mild GI upset, bloating. No anosmia or dysgeusia. Review of Systems Review of Systems: All systems reviewed & are unremarkable except as noted in HPI and below Exam Narrative: Gen - WNWD female lying semi-recumbent in bed Chest - improved air exchange bilaterally, mildly tachypneic CV - RRR S1/S2 Abd - Soft, NT/ND, Positive BS Ext - No pedal edema Psych - nml mood Skin - Warm and dry Objective Data Vital Signs Vital Signs: Vital Signs - 24 hr 05/18/21 10:00 05/18/21 12:00 05/18/21 14:00 Temperature 97.1 F L Pulse Rate 51 L 53 L 50 L Respiratory Rate 14 Blood Pressure 119/54 L Pulse Oximetry 91 90 05/18/21 16:00 05/18/21 18:00 05/18/21 20:00 Temperature 97.0 F L 97.4 F L Pulse Rate 66 56 L 50 L Respiratory Rate 20 22 H Blood Pressure 131/65 115/51 L Pulse Oximetry 90 95 05/18/21 20:15 05/18/21 20:25 05/18/21 22:00 Temperature Pulse Rate 77 79
[2021-05-19] MEDS: ALBUTEROL SULFATE (*SP) INHALER 2 PUFF INHALATION ×3 (10:03→21:33)
[2021-05-19] MEDS: FLUTICASONE PROP 110 MCG INHALER 12 GM (*SP) 2 PUFF INHALATION ×2 (10:03→21:33)
[2021-05-19] MEDS: REMDESIVIR 100 MG/NS 250 ML 100 MG/250 ML BAG 250 MG IVPB (11:29)
--- NOTE | 2021-05-19 13:29 | PM.PNPUL ---
Progress Note: A&P Assessment and Plan (1) Pneumonia due to COVID-19 virus: Code(s): U07.1 - COVID-19; J12.82 - Pneumonia due to coronavirus disease 2019 Status: Acute Assessment and Plan: Patient tested positive for COVID-19 on 05/15 and Received monoclonal antibody Imdevimab 600 mg and casirivimab 600 mg on 05/14. Started on remdesivir 05/15, dexamethasone on 05/14. - Remdesivir for 10 days Unless she should recover and tolerate room air with rest, ambulation and while sleeping. - Dexamethasone 6 mg IV for 10 days - Continuous pulse oximetry - Prone positioning as tolerated. - Avoid any fluid overload. - emperic azihtromycin and ceftraixone for possible CAP. - flovent 110 at 2 puffs Q 12 and albuterol inhaler 2 puffs Q 4 for now, no wheezes. - influenza swab negative. Keep saturations are 90-94% with either nasal cannula up to 15 L plus 15 L NRB or with BiPAP (can't tolerate Airvo). I discussed code status with patient and she wants to think about if she would want to be intubated. 05/17 patient remained on BiPAP rate of 12, 14/6 90% FiO2 with saturations 91-98 overnight. Overall patient states she feels about the same as yesterday and maybe a slight improvement in her breathing. White blood cell count is 4.3. PAtient cannot tolerate high-flow airflow and I placed her on a high-flow nasal cannula at 15 L in over the next 5 minutes she had desaturations to 84% and BiPAP was placed back on. I attempted to place her on noninvasive ventilation with the AVAPS mode but she felt that straight BiPAP was more comfortable for her. Patient received region around and we had a discussion about the addition of baricitinib and at this time she wishes to hold off on adding this medication. Continue remdesivir and dexamethasone. 05/18 Patient currently on BiPAP rate of 12 breathing 25, pressures 14/6, tidal volumes 700-800, 70% FiO2 with saturations 96%. Patient states that she is slightly better than yesterday but continues with a mild cough, no phlegm and no hemoptysis. Patient is afebrile. White blood cell count 8.0, CRP decreased to 2.2. I had patient place her on speaker phone and gave him clinical update. Patient was placed on 15 L nasal cannula plus 15 L non-rebreather at approximately 9:00 a.m. and tolerated the rated this until 05:00 (about 20 hours) on 05/19. 05/19 Patient states that early in the morning she developed some shortness of breath and required BiPAP at 5:00 a.m.. In retrospect she says she maybe should have put the BiPAP on sooner. Currently she is on BiPAP rate of 12, 14/6, 80% with saturations 97%. Afebrile with white blood cell count 9.6. I will check a chest x-ray in the morning. Day 5 ceftriaxone and azithromycin without evidence of bacterial infection and I will discontinue these. Discussed with over the phone and discussed with Dr. Suarez. (2) Acute respiratory failure with hypoxia: Code(s): J96.01 - Acute respiratory failure with hypoxia Status: Acute Assessment and Plan: Etiology of hypoxic respiratory failure is COVID pneumonia. I will check echo on 05/17/2105/14 20:00 Room air with sats 95%. 05/15 04:00 3 L nasal cannula with sats 92%. 05/15 20:00 15 L nasal cannula with sats 90%. 05/16 08:00 15 L nasal cannula with sats 90%, failed Airvo. 05/16 13:00 BiPAP rate of 12, 14/6, inspiratory time 1, rise 3 with tidal volumes of 600 and 85% FiO2 with saturations 97%. 05/17 08:00 BiPAP rate of 12, 14/6, FIO2 90% with saturations 99%. 05/17 20:00 BiPAP rate of 12, 14/6, FIO2 60% with saturations 93%. 5 min off BiPAP in AM and 40 min off BiPAP later in day. 05/18 07:00 BiPAP rate of 12, 14/6, FIO2 70% with saturations 96%. 05/18 09:00 15 L NC plus 15 L NRB with saturations 91% (20 hours) 05/19 05:00 05/18 07:00 BiPAP rate of 12, 14/6, FIO2 80% with saturations 92%. Will follow with you Subjective Date/time seen: 05/19/21 13:29 Interval histor
[2021-05-19] MEDS: IBUPROFEN 400 MG TABLET PO (18:08)
[2021-05-19] MEDS: MONTELUKAST SODIUM 10 MG TABLET PO (21:25)
[2021-05-20] VITALS (18 sets, daily range): BP systolic 112–129; BP diastolic 48–64; PULSE 54–93; RESP 14–31; TEMP 36.2–37.1; O2SAT 89–97
[2021-05-20 05:44] LABS: Basophils Percent Auto 0.1 % (0.2-1.2); Eosinophils Percent Auto 0.3 % (0-4.4); Hematocrit 38.1 % (37.0-47.0); Hemoglobin 12.1 g/dL (12.0-15.0); Immature Granulocyte Absolute 0.23 K/mm3 (0.00-0.031); Immature Granulocyte Percent A 1.9 % (0-0.5); Lymphocytes Absolute Auto 0.44 K/mm3 (0.9-3.2); Lymphocytes Percent Auto 3.7 % (18.3-44.2); Mean Corpuscular HGB Conc 31.8 g/dl (32-36); Mean Corpuscular Hemoglobin 27.8 pg (26-34); Mean Corpuscular Volume 87.4 fl (80-100); Mean Platelet Volume 11.3 fl (7.4-10.4); Monocytes Absolute Auto 0.7 K/mm3 (0.1-0.6); Monocytes Percent Auto 5.9 % (2.6-8.5); Neutrophils Absolute Auto 10.4 K/mm3 (1.3-6.7); Neutrophils Percent Auto 88.1 % (45.5-73.1); Platelet Count Result 223 k/mm3 (150-375); Red Blood Count 4.36 M/mm3 (4.2-5.4); Red Cell Distribution Width 13.4 % (11.5-14.5); White Blood Count 11.9 K/mm3 (4.5-10.0)
[2021-05-20 05:53] LABS: INR 1.2; Prothrombin Time 14.9 Seconds (11.1-14.7)
[2021-05-20] MEDS: LEVOTHYROXINE SODIUM 125 MCG TABLET PO (05:59)
[2021-05-20 06:05] LABS: Alanine Aminotransferase 32 U/L (4-35); Albumin Level 3.2 g/dL (3.5-5.1); Alkaline Phosphatase 77 U/L (38-126); Anion Gap 5 mmol/L (8-16); Aspartate Amino Transferase 31 U/L (14-36); Bilirubin,Total 0.7 mg/dL (0.2-1.3); Blood Urea Nitrogen 20 mg/dL (7-17); CRP 7.1 mg/dL (<1.0); Calcium 8.2 mg/dL (8.4-10.2); Carbon Dioxide 29 mmol/L (22-30); Chloride 100 mmol/L (98-107); Estimated CRCL calculation 81 ml/min; Estimated Glomerular Filt Rate > 60; Glucose 117 mg/dL (65-110); Potassium 3.8 mmol/L (3.4-5.0); Sodium 134 mmol/L (137-145)
[2021-05-20 06:13] LABS: Lactate Dehydrogenase 1982 U/L (313-618)
[2021-05-20 06:27] LABS: D Dimer 10.27 ug/mL (<0.48)
[2021-05-20] MEDS: ALBUTEROL SULFATE (*SP) INHALER 2 PUFF INHALATION ×2 (09:09→20:45)
[2021-05-20] MEDS: FLUTICASONE PROP 110 MCG INHALER 12 GM (*SP) 2 PUFF INHALATION ×2 (09:09→20:44)
[2021-05-20] MEDS: ENOXAPARIN 40 MG/0.4 ML SYRINGE SUB-Q (09:59)
[2021-05-20] MEDS: PANTOPRAZOLE 40 MG TABLET PO (10:00)
[2021-05-20] MEDS: NYSTATIN 100,000 UNITS/ML SUSP 5 ML ORAL.SUSP PO (10:00)
[2021-05-20] MEDS: REMDESIVIR 100 MG/NS 250 ML 100 MG/250 ML BAG 250 MG IVPB (10:08)
--- NOTE | 2021-05-20 10:46 | PM.PNPUL ---
Progress Note: A&P Assessment and Plan (1) Pneumonia due to COVID-19 virus: Code(s): U07.1 - COVID-19; J12.82 - Pneumonia due to coronavirus disease 2019 Status: Acute Assessment and Plan: Patient tested positive for COVID-19 on 05/15 and Received monoclonal antibody Imdevimab 600 mg and casirivimab 600 mg on 05/14. Started on remdesivir 05/15, dexamethasone on 05/14. - Remdesivir for 10 days Unless she should recover and tolerate room air with rest, ambulation and while sleeping. - Dexamethasone 6 mg IV for 10 days - Continuous pulse oximetry - Prone positioning as tolerated. - Avoid any fluid overload. - emperic azihtromycin and ceftraixone for possible CAP. - flovent 110 at 2 puffs Q 12 and albuterol inhaler 2 puffs Q 4 for now, no wheezes. - influenza swab negative. Keep saturations are 90-94% with either nasal cannula up to 15 L plus 15 L NRB or with BiPAP (can't tolerate Airvo). I discussed code status with patient and she wants to think about if she would want to be intubated. 05/17 patient remained on BiPAP rate of 12, 14/6 90% FiO2 with saturations 91-98 overnight. Overall patient states she feels about the same as yesterday and maybe a slight improvement in her breathing. White blood cell count is 4.3. PAtient cannot tolerate high-flow airflow and I placed her on a high-flow nasal cannula at 15 L in over the next 5 minutes she had desaturations to 84% and BiPAP was placed back on. I attempted to place her on noninvasive ventilation with the AVAPS mode but she felt that straight BiPAP was more comfortable for her. Patient received region around and we had a discussion about the addition of baricitinib and at this time she wishes to hold off on adding this medication. Continue remdesivir and dexamethasone. 05/18 Patient currently on BiPAP rate of 12 breathing 25, pressures 14/6, tidal volumes 700-800, 70% FiO2 with saturations 96%. Patient states that she is slightly better than yesterday but continues with a mild cough, no phlegm and no hemoptysis. Patient is afebrile. White blood cell count 8.0, CRP decreased to 2.2. I had patient place her on speaker phone and gave him clinical update. Patient was placed on 15 L nasal cannula plus 15 L non-rebreather at approximately 9:00 a.m. and tolerated the rated this until 05:00 (about 20 hours) on 05/19. 05/19 Patient states that early in the morning she developed some shortness of breath and required BiPAP at 5:00 a.m.. In retrospect she says she maybe should have put the BiPAP on sooner. Currently she is on BiPAP rate of /6, 80% with saturations 97%. Afebrile with white blood cell count 9.6. I will check a chest x-ray in the morning. Day 5 ceftriaxone and azithromycin without evidence of bacterial infection and I will discontinue these. Discussed with over the phone and discussed with Dr. Suarez. Off BiPAP from approximately 13:45 through 21:33 on 15 L high-flow nasal cannula on 15 L non-rebreather mask with saturations in the low 90s. 05/20 Overall patient clinically feels about the same, she has dyspnea on exertion and a little bit of a dry cough. She is able to go to the bedside commode. Patient wore BiPAP rate of 14/6 with 80% overnight with saturations 93-95%. Patient is currently on 15 L high-flow nasal cannula 15 L non-rebreather mask with saturations 89-90%. White blood cell count 11.9, D-dimer 10.27, CRP 7.1, chest x-ray with worsening diffuse interstitial and alveolar infiltrates bilaterally. Tolerating some time off BiPAP but still severe hypoxemic respiratory failure. Continue current medical management. Discussed with Dr. Cameron. (2) Acute respiratory failure with hypoxia: Code(s): J96.01 - Acute respiratory failure with hypoxia Status: Acute Assessment and Plan: Etiology of hypoxic respiratory failure is COVID pneumonia. I will check echo on 05/17/2105/14 20:00 Room air with sats 95%.
--- NOTE | 2021-05-20 12:44 | PM.IMPN ---
Progress Note: A&P Assessment and Plan (1) Acute respiratory failure with hypoxia: Code(s): J96.01 - Acute respiratory failure with hypoxia Status: Acute Assessment and Plan: Patient presents with shortness of breath. She was diagnosed with COVID early May. CTA chest 05/14 showing moderate amount of bilateral airspace disease. She is on supplemental O2 with increasing O2 requirement. AirVo attempted but she could not tolerate so changed to BiPAP. 05/18 on HFNC with NRB -- sats in mid-80s 05/19 PM back on BiPAP 05/20 She was able to come off BiPAP today. Continue supportive care. Requested she lay prone as she tolerates. Continue Albuterol HFA. Continue to monitor progress (2) Pneumonia due to COVID-19 virus: Code(s): U07.1 - COVID-19; J12.82 - Pneumonia due to coronavirus disease 2018 Status: Acute Assessment and Plan: Patient was COVID positive in Apr 2020. She is unvaccinated. She became symptomatic of 05/09/21 and tested positive again for COVID on 05/10/21 ( positive a few days prior). She received REGEN-COV (casirivimab and imdevimab) monoclonal Ab on 05/14 and presented to the ED later that night with complaints of SOB. Decadron and Remdesivir given in the ED. She was given Convalescent Plasma 05/15 and continued on Remdesivir and Decadron. CTA Chest showing no PE but moderate amount of airspace disease. She became more hypoxic and she was moved to IMU. She was placed on BiPAP. Mild leukopenia noted related to COVID but resolved. Continue Decadron and Remdesivir. Remains off antibiotics but doubt bacterial PNA. Consider Baricitinib but concern given recent monoclonal Ab use. Encouraged her to lie prone. Continue to support with supplemental oxygen. Stop Nystatin and proceed with good oral care. Discussed with pulmonary. Appreciate pulmonary input. (3) LV dysfunction: Code(s): I51.9 - Heart disease, unspecified Status: Acute Assessment and Plan: Troponin negative x2 (>24hrs apart) on admission. EKG reviewed showing borderline ST changes in the high lateral leads and voltage criteria for LVH. Echo 05/18 showing EF 45-50% and mild LAE but LV chamber normal. Mild valvular disease noted. Etiology of the mild LV dysfunction unclear. This could be acute related to COVID possibly chronic and unrelated. She does have hypertension but no increased LV wall thickness to suggest LVH. Patient will need repeat echocardiogram after discharge. lasix x1. (4) Essential (primary) hypertension: Code(s): I10 - Essential (primary) hypertension Status: Acute Assessment and Plan: Patient's blood pressure was reviewed on 05/20 Blood pressure remains well controlled. Losartan remains on hold. Follow. (5) ROBERTO (obstructive sleep apnea): Code(s): G47.33 - Obstructive sleep apnea (adult) (pediatric) Status: Acute Assessment and Plan: As above. (6) Fatty liver disease, nonalcoholic: Onset Date: 04/02/21 Code(s): K76.0 - Fatty (change of) liver, not elsewhere classified Status: Acute Assessment and Plan: Hepatic steatosis again noted by CT scan. LFTs normal. Monitor LFTs on Remdesivir (7) Hypothyroid: Qualifiers: Hypothyroidism type: unspecified Qualified Code(s): E03.9 - Hypothyroidism, unspecified Code(s): E03.9 - Hypothyroidism, unspecified Status: Acute Assessment and Plan: TSH normal. Continue levothyroxine. (8) DVT prophylaxis: Code(s): Z29.9 - Encounter for prophylactic measures, unspecified Status: Acute Assessment and Plan: Lovenox Subjective Date/time seen: 05/20/21 12:44 Interval history: 55yo female with hx of HTN and hypothyroidism here for shortness of breath felt related to COVID PNA. She was diagnosed with COVID on 05/10. She is unvaccinated. Resuming care. Chart reviewed. Shortness of breath is not much improved. She denies
--- NOTE | 2021-05-20 13:18 | PCNFU ---
Nutrition Follow-Up Complete: Inadequate Oral intake as related to COVID pneumonia as evidenced by poor po intake. Goal: Meet estimated nutritional needs Patient is progressing towards goal. No new goal at this time. Pt current nutrition is a regular diet. Last recorded weight is 103.7 kg. Recommend re-weighing pt. prior to discharge. Bowel Motility: + BM 05/19/2021 Labs Reviewed: Alb 3.2, Na 134, BUN 20, Glu 117 Meds Noted: Albuterol, Lasix, Motrin, Synthroid, Protonix, Remdesivir, Mylicon, Skin: No skin breakdown at this time. WNL. Additional Notes: Patient has a poor appetite consuming on average 15% of meals and refusing several meals. She is receiving frozen nutritional treat BID providing her with an additional 300 calories and 9 grams of protein. will monitor every 5 days.
--- NOTE | 2021-05-20 13:56 | PCNSR ---
On 05/20/21, the student, Sharmaine Carroll, provided care and completed [facility] documentation on this patient. I have reviewed the student's documentation and agree with the findings.
[2021-05-20] MEDS: FUROSEMIDE INJ 40 MG/4 ML VIAL 20 MG IV PUSH (15:12)
[2021-05-20 15:43] LABS: Device BIPAP; Modified Allen's Test Pass; Site Drawn RIGHT RADIAL
[2021-05-20 15:44] LABS: HCO3 ABG 24.4 mEq/l (22.0-26.0); PO2 ABG 58.5 mmHg (80.0-100.0)
[2021-05-20 15:45] LABS: Alveolar/Arterial O2 Gradient 478.3 mmHg; Base Excess ABG 1.8 mEq/l (+/-2.0); Expiratory Pressure 6 cmH2O; Fractional Inspired Oxygen 80 %; Inspiratory Pressure 14 cmH2O; Oxygen Content ABG 16.4 %vol (16.0-22.0); Oxygen Saturation ABG 92.8 % (95.0-100.0); Oxyhemoglobin 89.8 % THb (90.0-100.0); PO2 FiO2 Ratio Arterial Blood 0.73 %
[2021-05-20] MEDS: MONTELUKAST SODIUM 10 MG TABLET PO (21:13)
[2021-05-20] MEDS: ALPRAZolam (*CRX) 0.25 MG TABLET PO (21:56)
[2021-05-21] VITALS (22 sets, daily range): BP systolic 96–133; BP diastolic 49–71; PULSE 58–103; RESP 18–37; TEMP 36–37.3; O2SAT 85–98
[2021-05-21] MEDS: ALBUTEROL SULFATE (*SP) INHALER 2 PUFF INHALATION ×3 (02:12→14:33)
[2021-05-21] MEDS: LEVOTHYROXINE SODIUM 125 MCG TABLET PO (05:43)
[2021-05-21 06:02] LABS: Basophils Percent Auto 0.2 % (0.2-1.2); Eosinophils Absolute Auto 0.1 K/mm3 (0-0.3); Eosinophils Percent Auto 0.8 % (0-4.4); Hemoglobin 12.7 g/dL (12.0-15.0); Immature Granulocyte Absolute 0.44 K/mm3 (0.00-0.031); Immature Granulocyte Percent A 3.1 % (0-0.5); Lymphocytes Absolute Auto 0.39 K/mm3 (0.9-3.2); Lymphocytes Percent Auto 2.7 % (18.3-44.2); Mean Corpuscular HGB Conc 31.8 g/dl (32-36); Mean Corpuscular Hemoglobin 28.2 pg (26-34); Mean Corpuscular Volume 88.7 fl (80-100); Mean Platelet Volume 11.1 fl (7.4-10.4); Monocytes Absolute Auto 0.6 K/mm3 (0.1-0.6); Monocytes Percent Auto 4.1 % (2.6-8.5); Neutrophils Absolute Auto 12.8 K/mm3 (1.3-6.7); Neutrophils Percent Auto 89.1 % (45.5-73.1); Platelet Count Result 192 k/mm3 (150-375); Red Blood Count 4.51 M/mm3 (4.2-5.4); Red Cell Distribution Width 13.6 % (11.5-14.5); White Blood Count 14.3 K/mm3 (4.5-10.0)
[2021-05-21 06:23] LABS: Alanine Aminotransferase 27 U/L (4-35); Anion Gap 8 mmol/L (8-16); Aspartate Amino Transferase 28 U/L (14-36); Blood Urea Nitrogen 22 mg/dL (7-17); Calcium 8.1 mg/dL (8.4-10.2); Carbon Dioxide 26 mmol/L (22-30); Chloride 98 mmol/L (98-107); Estimated CRCL calculation 91 ml/min; Estimated Glomerular Filt Rate > 60; Glucose 98 mg/dL (65-110); Potassium 3.5 mmol/L (3.4-5.0); Sodium 132 mmol/L (137-145)
[2021-05-21 06:26] LABS: INR 1.4; Prothrombin Time 16.9 Seconds (11.1-14.7)
[2021-05-21] MEDS: FLUTICASONE PROP 110 MCG INHALER 12 GM (*SP) 2 PUFF INHALATION (09:04)
--- NOTE | 2021-05-21 09:38 | PM.IMPN ---
Progress Note: A&P Assessment and Plan (1) Acute respiratory failure with hypoxia: Code(s): J96.01 - Acute respiratory failure with hypoxia Status: Acute Assessment and Plan: Patient presents with shortness of breath. She was diagnosed with COVID early May. CTA chest 05/14 showing moderate amount of bilateral airspace disease. She is on supplemental O2 with increasing O2 requirement. AirVo attempted but she could not tolerate so changed to BiPAP. She was able to come off BiPAP yesterday with HFNC and NRB mask. Continue supportive care. Continue Albuterol HFA. Continue to monitor progress. Discussed with cctv technician yesterday and will update them again today. (2) Pneumonia due to COVID-19 virus: Code(s): U07.1 - COVID-19; J12.82 - Pneumonia due to coronavirus disease 2018 Status: Acute Assessment and Plan: Patient was COVID positive in Apr 2020. She is unvaccinated. She became symptomatic of 05/09/21 and tested positive again for COVID on 05/10/21 ( positive a few days prior). She received REGEN-COV (casirivimab and imdevimab) monoclonal Ab on 05/14 and presented to the ED later that night with complaints of SOB. Decadron and Remdesivir given in the ED. She was given Convalescent Plasma 05/15 and continued on Remdesivir and Decadron. CTA Chest showing no PE but moderate amount of airspace disease. She became more hypoxic and she was moved to IMU. She was placed on BiPAP. Mild leukopenia noted related to COVID but resolved. Continue Decadron and Remdesivir. Remains off antibiotics but doubt bacterial PNA. Consider Baricitinib but concern given recent monoclonal Ab use. Encouraged her to lie prone. Continue to support with supplemental oxygen. Add vitC; patient aware that there are no good studies proving efficacy of this treatment. Appreciate pulmonary input. (3) LV dysfunction: Code(s): I51.9 - Heart disease, unspecified Status: Acute Assessment and Plan: Troponin negative x2 (>24hrs apart) on admission. EKG reviewed showing borderline ST changes in the high lateral leads and voltage criteria for LVH. Echo 05/18 showing EF 45-50% and mild LAE but LV chamber normal. Mild valvular disease noted. Etiology of the mild LV dysfunction unclear. This could be acute related to COVID possibly chronic and unrelated. She does have hypertension but no increased LV wall thickness to suggest LVH. Patient will need repeat echocardiogram after discharge. Tolerated the Lasix well. Will repeat dose today. (4) Essential (primary) hypertension: Code(s): I10 - Essential (primary) hypertension Status: Acute Assessment and Plan: Patient's blood pressure was reviewed on 05/20 Blood pressure remains well controlled. Losartan remains on hold. Follow. (5) ROBERTO (obstructive sleep apnea): Code(s): G47.33 - Obstructive sleep apnea (adult) (pediatric) Status: Acute Assessment and Plan: As above. (6) Fatty liver disease, nonalcoholic: Onset Date: 04/02/21 Code(s): K76.0 - Fatty (change of) liver, not elsewhere classified Status: Acute Assessment and Plan: Hepatic steatosis again noted by CT scan. LFTs normal. Monitor LFTs on Remdesivir (7) Hypothyroid: Qualifiers: Hypothyroidism type: unspecified Qualified Code(s): E03.9 - Hypothyroidism, unspecified Code(s): E03.9 - Hypothyroidism, unspecified Status: Acute Assessment and Plan: TSH normal. Continue levothyroxine. (8) DVT prophylaxis: Code(s): Z29.9 - Encounter for prophylactic measures, unspecified Status: Acute Assessment and Plan: Lovenox Subjective Date/time seen: 05/21/21 09:38 Interval history: 55yo female with hx of HTN and hypothyroidism here for shortness of breath felt related to COVID PNA. She was diagnosed with COVID on 05/10. She is unvaccinated. Shortness of breath is about the same.
[2021-05-21] MEDS: PANTOPRAZOLE 40 MG TABLET PO (10:18)
[2021-05-21] MEDS: ENOXAPARIN 40 MG/0.4 ML SYRINGE SUB-Q (10:18)
[2021-05-21] MEDS: REMDESIVIR 100 MG/NS 250 ML 100 MG/250 ML BAG 250 MG IVPB (10:19)
--- NOTE | 2021-05-21 10:54 | PM.PNPUL ---
Progress Note: A&P Assessment and Plan (1) Pneumonia due to COVID-19 virus: Code(s): U07.1 - COVID-19; J12.82 - Pneumonia due to coronavirus disease 2019 Status: Acute Assessment and Plan: Patient tested positive for COVID-19 on 05/15 and Received monoclonal antibody Imdevimab 600 mg and casirivimab 600 mg on 05/14. Started on remdesivir 05/15, dexamethasone on 05/14. - Remdesivir for 10 days - Dexamethasone 6 mg IV for 10 days - Continuous pulse oximetry - Prone positioning as tolerated. - Avoid any fluid overload. - emperic azihtromycin and ceftraixone for possible CAP, finished 5 days and DC on 05/19. - flovent 110 at 2 puffs Q 12 and albuterol inhaler 2 puffs Q 4 for now, no wheezes. - influenza swab negative. Keep saturations are 90-94% with either nasal cannula up to 15 L plus 15 L NRB or with BiPAP (can't tolerate Airvo). I discussed code status with patient and she wants to think about if she would want to be intubated. 05/17 patient remained on BiPAP rate of 12, 14/6 90% FiO2 with saturations 91-98 overnight. Overall patient states she feels about the same as yesterday and maybe a slight improvement in her breathing. White blood cell count is 4.3. PAtient cannot tolerate high-flow airflow and I placed her on a high-flow nasal cannula at 15 L in over the next 5 minutes she had desaturations to 84% and BiPAP was placed back on. I attempted to place her on noninvasive ventilation with the AVAPS mode but she felt that straight BiPAP was more comfortable for her. Patient received region around and we had a discussion about the addition of baricitinib and at this time she wishes to hold off on adding this medication. Continue remdesivir and dexamethasone. 05/18 Patient currently on BiPAP rate of 12 breathing 25, pressures 14/6, tidal volumes 700-800, 70% FiO2 with saturations 96%. Patient states that she is slightly better than yesterday but continues with a mild cough, no phlegm and no hemoptysis. Patient is afebrile. White blood cell count 8.0, CRP decreased to 2.2. I had patient place her on speaker phone and gave him clinical update. Patient was placed on 15 L nasal cannula plus 15 L non-rebreather at approximately 9:00 a.m. and tolerated the rated this until 05:00 (about 20 hours) on 05/19. 05/19 Patient states that early in the morning she developed some shortness of breath and required BiPAP at 5:00 a.m.. In retrospect she says she maybe should have put the BiPAP on sooner. Currently she is on BiPAP rate of , /, 80% with saturations 97%. Afebrile with white blood cell count 9.6. I will check a chest x-ray in the morning. Day 5 ceftriaxone and azithromycin without evidence of bacterial infection and I will discontinue these. Discussed with over the phone and discussed with Dr. Suarez. Off BiPAP from approximately 13:45 through 21:33 on 15 L high-flow nasal cannula on 15 L non-rebreather mask with saturations in the low 90s. 05/20 Overall patient clinically feels about the same, she has dyspnea on exertion and a little bit of a dry cough. She is able to go to the bedside commode. Patient wore BiPAP rate of , /6 with 80% overnight with saturations 93-95%. Patient is currently on 15 L high-flow nasal cannula 15 L non-rebreather mask with saturations 89-90%. White blood cell count 11.9, D-dimer 10.27, CRP 7.1, chest x-ray with worsening diffuse interstitial and alveolar infiltrates bilaterally. Tolerating some time off BiPAP but still severe hypoxemic respiratory failure. Continue current medical management. Discussed with Dr. Cameron. On 15 L nasal cannula plus 15 L non-rebreather from 8:00 a.m. to 12 [place] [address].50/32/59 on BiPAP 19/11 and 80% 05/21 Patient clinically feels the same. She had issues with her BiPAP mask last night with desaturations and a leak and they tried a small mask but this did not work and she was put back on a medium mask. Her FiO2 was increas
[2021-05-21] MEDS: ASCORBIC ACID 250 MG TABLET PO (11:14)
[2021-05-21] MEDS: FUROSEMIDE INJ 40 MG/4 ML VIAL 20 MG IV PUSH (11:14)
[2021-05-21] MEDS: ONDANSETRON INJ 4 MG/2 ML VIAL IV PUSH (12:27)
--- NOTE | 2021-05-21 13:59 | PC.NURSE ---
1345-Patient received from IMU room 231. Bedside report received from Tabitha CHRIS. Pt. stable upon transfer.
--- NOTE | 2021-05-21 14:44 | WPDCNINT ---
Assessment and Plan Assessment and plan (1) Acute respiratory failure with hypoxia: Code(s): J96.01 - Acute respiratory failure with hypoxia Status: Acute Assessment and Plan: Acute Respiratory failure secondary to COVID-19 pneumonia Most recent ABG and PCXR reviewed CT - 05/14 IMPRESSION: 1. Moderate amount of bilateral airspace disease, appearance consistent with acute to early subacute COVID pneumonia. 2. Small lingular nodule and small T7 sclerotic focus unchanged; one-year follow-up chest CT as previously recommended. 3. No pulmonary emboli. CXR - 05/20 IMPRESSION: Progression of diffuse COVID pneumonia. Patient is currently on BiPAP on 19/11 and 100% FiO2. She is maintaining a saturation but appears to have become BiPAP dependent. She is not in any significant distress hence does not want to be intubated at this time. I had remberto discussion with the patient and stated that we will proceed with intubation if we are unable to maintain her oxygen saturation on BiPAP or if patient develops respiratory distress. Patient is agreeable to intubation if absolutely needed but this time does not want to proceed. I will start Precedex infusion for anxiolysis and safe NIPPV Since patient at this time does not want to be intubated, is maintaining saturation and does not appear to be in any respiratory distress, I will continue to monitor patient closely. High risk of patient needing intubation in next 24-48 hours (2) Pneumonia due to COVID-19 virus: Code(s): U07.1 - COVID-19; J12.82 - Pneumonia due to coronavirus disease 2019 Status: Acute Assessment and Plan: Patient tested positive for COVID-19 on 05/10 and received monoclonal antibody Imdevimab 600 mg and casirivimab 600 mg on 05/14 after exposure and positive test as an outpatient. -admitted on 05/15 and tested positive again at the hospital - Started on remdesivir 05/15, dexamethasone on 05/14. - completed a five-day course of azihtromycin and ceftraixone for possible CAP on 05/19. - She was given Convalescent Plasma 05/15 - influenza swab negative. - Option of Actemra and Barcitinib were discussed with patient by Dr. Butterfield with pulmonary earlier in the course of hospitalization considering there is no data of either drug use after monoclonal antibody infusion. Patient was given option/choice of taking these drugs and patient refused. (3) Hypothyroid: Qualifiers: Hypothyroidism type: unspecified Qualified Code(s): E03.9 - Hypothyroidism, unspecified Code(s): E03.9 - Hypothyroidism, unspecified Status: Acute Assessment and Plan: Continue levothyroxine Additional Plan DVT prophylaxis -Lovenox Stress ulcer prophylaxis -PPI Nutrition -regular diet is ordered but intake is poor due to patient being on BiPAP Patient has poor IV access hence will obtain PICC line Code Status - Full Code. Again I have had long and remberto discussion with the patient. I discussed with her that possibility of her needing intubation is very high considering her current status. I have explained to her the expected and guarded prognosis. She was requesting that she should be intubated only if we can guarantee extubation which I explained to her that there is no way to guarantee outcomes with COVID 19 pneumonia requiring mechanical ventilation. I also explained to her that most patients who require mechanical ventilation for COVID 19 pneumonia do not get extubated quickly and required mechanical ventilation for extended period of time which could range in weeks. At this time she is refusing to get intubated but she is full code and wants to be intubated once all other options have been tried and exhausted. I have explained to her that if she is unable to maintain her saturation on BiPAP then we will not have any other choice but to proceed with intubation and mechanical ventilation. Patient verbalized understanding. I answered all her other questions. Reid
[2021-05-21] MEDS: SIMETHICONE 80 MG TAB.CHEW PO ×2 (19:20→21:50)
--- NOTE | 2021-05-21 20:25 | PC.NURSE ---
This patient, Eunice Mejía, was transferred to ICU3 on 05/21/21 at 1345. Pt's O2 was sustaining in the low to mid 80's while maxed out on BIPAP. Repositioning and readjusting mask did not help. Personal belongings sent with patient. Report given to Leti Haddad. Appropriate documentation sent with patient.
[2021-05-21] MEDS: MONTELUKAST SODIUM 10 MG TABLET PO (21:50)
[2021-05-21] MEDS: CENTRAL LINE FLUSH 10 ML IV PUSH (21:51)
--- NOTE | 2021-05-21 22:47 | PCRCNOTE ---
Window of time for administration has passed. See next scheduled administration.
[2021-05-21] MEDS: dexmedeTOMIDine 400 MCG/100 ML 400 MCG/100 ML BAG 5.19 MCG IV CONT (23:52)
[2021-05-22] VITALS (27 sets, daily range): BP systolic 90–182; BP diastolic 43–84; PULSE 60–154; RESP 10–39; TEMP 36.8–38.4; O2SAT 58–97; BMI 38.3
[2021-05-22 01:12] LABS: Alveolar/Arterial O2 Gradient 627.2 mmHg; Base Excess ABG 1.5 mEq/l (+/-2.0); Fractional Inspired Oxygen 100 %; Oxygen Content ABG 15.8 %vol (16.0-22.0); PCO2 ABG 35.6 mmHg (35.0-45.0); PO2 ABG 50.2 mmHg (80.0-100.0); Total Hemoglobin 13.5 g/dL (12.0-18.0); pH ABG 7.464 (7.350-7.450)
[2021-05-22 01:13] LABS: Oxygen Saturation ABG 87.9 % (95.0-100.0)
[2021-05-22 01:14] LABS: Device NON-INVASIVE VENT; Modified Allen's Test Pass; Oxyhemoglobin 83.3 % THb (90.0-100.0); Site Drawn RIGHT RADIAL
[2021-05-22 01:15] LABS: Non-Invasive Expiratory Pressure 6 CMH2O; Non-Invasive Inspiratory Pressure 14 CMH2O; Non-Invasive Vent Rate 12 /MIN
--- NOTE | 2021-05-22 01:51 | PC.NURSE ---
Critical AGB results called to Dr. Pfeiffer. Pt is refusing intubation and Dr. Pfeiffer aware, no new orders at this time. Instructed to alert house doctor that pt may require intubation later. Pt's , Dr. Mejía notified of change in status, current VS, percedex gtt started, and ABG results. Verbalizes understanding and agreeable to not intubating at this time.
--- NOTE | 2021-05-22 02:22 | PC.NURSE ---
Patient states that information may be given to her children Basim, Brooke, and Jennifer, her Jeremías, and her mother Tamara. Daughter, Jennifer, called earlier and was given updates with patient's permission.
[2021-05-22] MEDS: ALBUTEROL SULFATE (*SP) INHALER 2 PUFF INHALATION (03:00)
[2021-05-22] MEDS: LEVOTHYROXINE SODIUM 125 MCG TABLET PO (06:53)
[2021-05-22] MEDS: CENTRAL LINE FLUSH 10 ML IV PUSH ×3 (06:53→21:48)
[2021-05-22] MEDS: dexmedeTOMIDine 400 MCG/100 ML 400 MCG/100 ML BAG 15.56 MCG IV CONT (06:53)
[2021-05-22 06:54] LABS: Basophils Percent Auto 0.1 % (0.2-1.2); Eosinophils Absolute Auto 0.2 K/mm3 (0-0.3); Eosinophils Percent Auto 1.2 % (0-4.4); Hematocrit 39.5 % (37.0-47.0); Hemoglobin 12.6 g/dL (12.0-15.0); Immature Granulocyte Absolute 0.54 K/mm3 (0.00-0.031); Immature Granulocyte Percent A 3.8 % (0-0.5); Immature Platelet Fraction Pct 10.1 % (0.9-11.2); Lymphocytes Absolute Auto 0.28 K/mm3 (0.9-3.2); Mean Corpuscular HGB Conc 31.9 g/dl (32-36); Mean Corpuscular Volume 87.8 fl (80-100); Mean Platelet Volume 12.3 fl (7.4-10.4); Monocytes Absolute Auto 0.6 K/mm3 (0.1-0.6); Monocytes Percent Auto 4.1 % (2.6-8.5); Neutrophils Absolute Auto 12.6 K/mm3 (1.3-6.7); Neutrophils Percent Auto 88.8 % (45.5-73.1); Platelet Count Result 156 k/mm3 (150-375); Red Cell Distribution Width 13.7 % (11.5-14.5); White Blood Count 14.2 K/mm3 (4.5-10.0)
[2021-05-22 06:59] LABS: INR 1.5; Prothrombin Time 17.6 Seconds (11.1-14.7)
[2021-05-22 07:13] LABS: Alanine Aminotransferase 20 U/L (4-35); Alkaline Phosphatase 73 U/L (38-126); Anion Gap 6 mmol/L (8-16); Aspartate Amino Transferase 29 U/L (14-36); Bilirubin,Total 0.9 mg/dL (0.2-1.3); Blood Urea Nitrogen 32 mg/dL (7-17); Calcium 7.9 mg/dL (8.4-10.2); Carbon Dioxide 30 mmol/L (22-30); Chloride 94 mmol/L (98-107); Estimated CRCL calculation 92 ml/min; Estimated Glomerular Filt Rate > 60; Glucose 105 mg/dL (65-110); Magnesium 2.6 mg/dL (1.6-2.3); Potassium 3.7 mmol/L (3.4-5.0); Sodium 130 mmol/L (137-145)
--- NOTE | 2021-05-22 07:34 | PC.NURSE ---
Patient's have been 65-85%, resp 28-40. Pt states she feels fine, she does not need to be intubated. She just needs to rest and I will be better in the morning. updated on pt status.
[2021-05-22] MEDS: SODIUM CHLORIDE 0.9% IV 1,000 ML 999 ML IV CONT (07:45)
[2021-05-22] MEDS: MIDAZOLAM 100MG/NS 100ML(*CRX) 100 MG/100 ML BAG IV CONT (08:30)
[2021-05-22] MEDS: FENTANYL 2,500MCG/NS250ML(*CRX 2,500 MCG/250 ML BAG IV CONT (08:30)
--- NOTE | 2021-05-22 08:35 | PCRCNOTE ---
05/20/21 0200 Albuterol MDI not given. Window of time for administration has passed. See next scheduled administration.
[2021-05-22] MEDS: CISATRACURIUM BESYLATE 200 MG in DEXTROSE 5% 80 ML 9.41 ML IV CONT ×2 (08:39→17:01)
--- NOTE | 2021-05-22 09:12 | WPDPROCEDUR ---
Procedures Intubation Intubation Date: 05/22/21 Intubation Time: 07:30 Consent: Verbal consent was obtained from patient A pre-procedural Time-Out was completed immediately before starting the procedure and confirmed: Patient Identification, Site, Procedure, Patient Position and the Availability of Requisite Equipment: Yes Sedative: etomidate Mg given: 20 Paralytic: succinylcholine Mg given: 100 Laryngoscope: fiber optic video scope Assist device used: fiber optic device ET tube size: 8.5 Tube secured depth (cm): 25 Tube secured location: lips Tube placement confirmation: visualized tube passing through cords, equal breath sounds bilaterally, no breath sounds over epigastrium and confirmation by capnometry Patient tolerated procedure: well Intubation complications: hypoxia and other Additional comments: Patient was saturating in 70s prior to intubation. She had been refusing intubation for many days and was on BiPAP. I went and spoke to patient and told her that the BiPAP therapy is not working and at this time we have no other choice but to intubate if we want to maintain her oxygenation. Patient was initially reluctant but then spoke to her by phone. I also spoke to her by phone and explained the situation. They both agreed to proceed with intubation. Patient had no reserve left. Despite bagging her sats remained in 80 prior to intubation. Patient was intubated without any difficulty. Post intubation patient remained hypoxic with sats low despite prolonged bagging with a PEEP valve. OG tube was placed with assistance of a laryngoscope. Patient was bagged for a long time with PEEP valve. Despite that her saturations remain low. He was paralyzed with neuromuscular vickie. She was also sedated. Patient was then placed in prone position. And was again bagged with PEEP valve for prolonged per of time. In prone position with bagging patient's saturation eventually improved to 90. Chest x-ray was reviewed and ET tube was withdrawn by 2 cm prior to prone positioning.
[2021-05-22 09:55] LABS: Base Excess ABG -2.9 mEq/l (+/-2.0); Fractional Inspired Oxygen 100 %; HCO3 ABG 26.8 mEq/l (22.0-26.0); Oxygen Content ABG 17.9 %vol (16.0-22.0); Oxygen Saturation ABG 93.5 % (95.0-100.0); Oxyhemoglobin 91.2 % THb (90.0-100.0); PO2 ABG 83.6 mmHg (80.0-100.0); PO2 FiO2 Ratio Arterial Blood 0.84 %; Total Hemoglobin 13.9 g/dL (12.0-18.0)
[2021-05-22 09:58] LABS: pH ABG 7.198 (7.350-7.450)
[2021-05-22 09:59] LABS: PCO2 ABG 70.4 mmHg (35.0-45.0); Site Drawn RIGHT RADIAL
[2021-05-22 10:00] LABS: Arterial Blood Gas Vent Mode CMV; Arterial Blood Gas Ventilator rate 25 /MIN; Device VENTILATOR; Modified Allen's Test Pass
[2021-05-22 10:01] LABS: Arterial Blood Gas PEEP 15 cmH2O; Arterial Blood Gas Pressure Support 0 cmH2O; Arterial Blood Gas Tidal Volume 320 ml; Peak Inspiratory Pressure 0 cmH2O
--- NOTE | 2021-05-22 11:01 | WPDINTPN ---
Progress Note: A&P Assessment and Plan (1) Acute respiratory failure with hypoxia: Code(s): J96.01 - Acute respiratory failure with hypoxia Status: Acute Assessment and Plan: Acute Respiratory failure secondary to COVID-19 pneumonia Most recent ABG and PCXR reviewed CT - 05/14 IMPRESSION: 1. Moderate amount of bilateral airspace disease, appearance consistent with acute to early subacute COVID pneumonia. 2. Small lingular nodule and small T7 sclerotic focus unchanged; one-year follow-up chest CT as previously recommended. 3. No pulmonary emboli. Intubated 05/22 Patient was saturating in 70s prior to intubation. She had been refusing intubation for many days and was on BiPAP. I went and spoke to patient and told her that the BiPAP therapy is not working and at this time we have no other choice but to intubate if we want to maintain her oxygenation. Patient was initially reluctant but then spoke to her by phone. I also spoke to her by phone and explained the situation. They both agreed to proceed with intubation. Patient had no reserve left. Despite bagging her sats remained in 80 prior to intubation. Patient was intubated without any difficulty. Post intubation patient remained hypoxic with sats low despite prolonged bagging with a PEEP valve. OG tube was placed with assistance of a laryngoscope. Patient was bagged for a long time with PEEP valve. Despite that her saturations remain low. He was paralyzed with neuromuscular vickie. She was also sedated. Patient was then placed in prone position. And was again bagged with PEEP valve for prolonged per of time. In prone position with bagging patient's saturation eventually improved to 90. Chest x-ray was reviewed and ET tube was withdrawn by 2 cm prior to prone positioning. CXR reviewed ABG reviewed and tidal volume increased to 350 and respiratory rate increased to 30 2 amps of bicarb was given Permissive hypercapnia (2) Pneumonia due to COVID-19 virus: Code(s): U07.1 - COVID-19; J12.82 - Pneumonia due to coronavirus disease 2019 Status: Acute Assessment and Plan: Patient tested positive for COVID-19 on 05/10 and received monoclonal antibody Imdevimab 600 mg and casirivimab 600 mg on 05/14 after exposure and positive test as an outpatient. -admitted on 05/15 and tested positive again at the hospital - Started on remdesivir 05/15, dexamethasone on 05/14. - completed a five-day course of azihtromycin and ceftraixone for possible CAP on 05/19. - She was given Convalescent Plasma 05/15 - influenza swab negative. - Option of Actemra and Barcitinib were discussed with patient by Dr. Butterfield with pulmonary earlier in the course of hospitalization considering there is no data of either drug use after monoclonal antibody infusion. Patient was given option/choice of taking these drugs and patient refused at that time. (3) Hypothyroid: Qualifiers: Hypothyroidism type: unspecified Qualified Code(s): E03.9 - Hypothyroidism, unspecified Code(s): E03.9 - Hypothyroidism, unspecified Status: Acute Assessment and Plan: Continue levothyroxine (4) Dehydration: Code(s): E86.0 - Dehydration Status: Acute Assessment and Plan: Patient has not been eating and drinking adequately for last many days due to being on BiPAP Patient will be given small amount of IV fluids and will be started on tube feeds (5) Acidosis: Code(s): E87.2 - Acidosis Status: Acute Assessment and Plan: Mostly respiratory acidosis but patient's lungs are stiff with high pressures hence will give bicarb and allow permissive hypercapnia Additional Plan DVT prophylaxis -Lovenox Stress ulcer prophylaxis -IV PPI Nutrition -start Tube Feeds Code Status - Full Code I spoke to patient's Dr. Jeremías Rodriguez who is a member of medical staff at [facility] and updated him with overnight events and events chris shay
[2021-05-22] MEDS: SODIUM BICARBONATE 8.4% 50 MEQ/50 ML SYRINGE 100 MEQ IV PUSH (11:23)
[2021-05-22] MEDS: PANTOPRAZOLE SODIUM IV 40 MG VIAL IV PUSH (11:37)
[2021-05-22] MEDS: REMDESIVIR 100 MG/NS 250 ML 100 MG/250 ML BAG 250 MG IVPB (11:40)
[2021-05-22] MEDS: SODIUM CHLORIDE 0.9% IV 1,000 ML 100 ML IV CONT (11:40)
[2021-05-22] MEDS: ENOXAPARIN 40 MG/0.4 ML SYRINGE SUB-Q (11:41)
[2021-05-22] MEDS: MINERAL OIL/WHITE PETROLATUM OINTMENT 1 APPLIC EACH EYE ×2 (11:46→21:48)
[2021-05-22 11:55] LABS: Glucose Point of Care 125 mg/dl (65-105)
--- NOTE | 2021-05-22 12:05 | P.PNPL_ITS ---
Progress Note: A&P Assessment and Plan (1) Pneumonia due to COVID-19 virus: Code(s): U07.1 - COVID-19; J12.82 - Pneumonia due to coronavirus disease 2019 Status: Acute Assessment and Plan: Patient tested positive for COVID-19 on 05/15 and Received monoclonal antibody Imdevimab 600 mg and casirivimab 600 mg on 05/14. Started on remdesivir 05/15, dexamethasone on 05/14. - Remdesivir for 10 days - Dexamethasone 6 mg IV for 10 days - Continuous pulse oximetry - Prone positioning as tolerated. - Avoid any fluid overload. - emperic azihtromycin and ceftraixone for possible CAP, finished 5 days and DC on 05/19. - flovent 110 at 2 puffs Q 12 and albuterol inhaler 2 puffs Q 4 for now, no wheezes. - influenza swab negative. Keep saturations are 90-94% with either nasal cannula up to 15 L plus 15 L NRB o r with BiPAP (can't tolerate Airvo). I discussed code status with patient and she wants to think about if she would want to be intubated. 05/17 patient remained on BiPAP rate of 12, 14/6 90% FiO2 with saturations 91- 98 overnight. Overall patient states she feels about the same as yesterday and maybe a slight improvement in her breathing. White blood cell count is 4.3. PAtient cannot tolerate high-flow airflow and I placed her on a high-flow nasal cannula at 15 L in over the next 5 minutes she had desaturations to 84% and BiPAP was placed back on. I attempted to place her on noninvasive ventilation with the AVAPS mode but she felt that straight BiPAP was more comfortable for her. Patient received region around and we had a discussion about the addition of baricitinib and at this time she wishes to hold off on adding this medication. Continue remdesivir and dexamethasone. 05/18 Patient currently on BiPAP rate of 12 breathing 25, pressures 14/6, tidal volumes 700-800, 70% FiO2 with saturations 96%. Patient states that she is slightly better than yesterday but continues with a mild cough, no phlegm and no hemoptysis. Patient is afebrile. White blood cell count 8.0, CRP decreased to 2.2. I had patient place her on speaker phone and gave him clinical update. Patient was placed on 15 L nasal cannula plus 15 L non-rebreather at approximately 9:00 a.m. and tolerated the rated this until 05:00 (about 20 hours) on 05/19. 05/19 Patient states that early in the morning she developed some shortness of breath and required BiPAP at 5:00 a.m.. In retrospect she says she maybe should have put the BiPAP on sooner. Currently she is on BiPAP rate of 19/11, 80% with saturations 97%. Afebrile with white blood cell count 9.6. I will check a chest x-ray in the morning. Day 5 ceftriaxone and azithromycin without evidence of bacterial infection and I will discontinue these. Discussed with over the phone and discussed with Dr. Suarez. Off BiPAP from approximately 13:45 through 21:33 on 15 L high-flow nasal cannula on 15 L non- rebreather mask with saturations in the low 90s. 05/20 Overall patient clinically feels about the same, she has dyspnea on exertion and a little bit of a dry cough. She is able to go to the bedside commode. Patient wore BiPAP rate of / with 80% overnight with saturations 93-95%. Patient is currently on 15 L high-flow nasal cannula 15 L non- rebreather mask with saturations 89-90%. White blood cell count 11.9, D-dimer 10.27, CRP 7.1, chest x-ray with worsening diffuse interstitial and alveolar in filtrates bilaterally. Tolerating some time off BiPAP but still severe hypoxemic respiratory failure. Continue current medical management. Discussed with Dr. Cameron. On 15 L nasal cannula plus 15 L non-rebreather from 8:00 a.m. to 12 [place] 8[address].50/32/59 on BiPAP 19/11 and
--- NOTE | 2021-05-22 12:18 | PCFNICU ---
ICU Rounding Note: Pt current nutrition is Vital AF 1.2 at 20 ml/hr over 22 hours. Nutrition recommendation: goal rate at 60 ml/hr over 22 hours. Last recorded weight is 104.6 kg,up from 104.7 kg. Bowel Motility:+BM reported 05/19 Labs Reviewed:BUN 32, Na 130, Alb 3.0,Mg 2.6 Meds Noted:Versed, Fentanyl, NS, Remdesivir, Lovenox, Synthroid, Protonix Skin: WNL Additional Notes: Patient intubated this morning. Tube feedings starting of Vital AF 1.2 at 20 ml/hr advancing by 10 ml q 4 hours to goal rate of 60 ml/hr, free water flush 30 ml q 4 hours. Patient is proned at this time. Following daily in ICU rounds. Reassessing every Thursday and Thursday.
[2021-05-22 13:30] LABS: Alveolar/Arterial O2 Gradient 575.7 mmHg; Base Excess ABG 2.2 mEq/l (+/-2.0); Fractional Inspired Oxygen 100 %; HCO3 ABG 28.7 mEq/l (22.0-26.0); Oxygen Content ABG 17.7 %vol (16.0-22.0); Oxygen Saturation ABG 95.8 % (95.0-100.0); Oxyhemoglobin 94.1 % THb (90.0-100.0); PCO2 ABG 52.9 mmHg (35.0-45.0); PO2 ABG 84.4 mmHg (80.0-100.0); PO2 FiO2 Ratio Arterial Blood 0.84 %; Total Hemoglobin 13.3 g/dL (12.0-18.0); pH ABG 7.353 (7.350-7.450)
[2021-05-22] MEDS: ASCORBIC ACID 250 MG TABLET PO (13:30)
[2021-05-22 13:31] LABS: Device VENTILATOR; Modified Allen's Test Pass; Site Drawn RIGHT RADIAL
[2021-05-22 13:32] LABS: Arterial Blood Gas PEEP 15 cmH2O; Arterial Blood Gas Pressure Support 0 cmH2O; Arterial Blood Gas Tidal Volume 350 ml; Arterial Blood Gas Vent Mode CMV; Arterial Blood Gas Ventilator rate 30 /MIN; Peak Inspiratory Pressure 0 cmH2O
[2021-05-22 16:50] LABS: Glucose Point of Care 166 mg/dl (65-105)
--- NOTE | 2021-05-22 18:19 | PM.IMPN ---
Progress Note: A&P Assessment and Plan (1) Acute respiratory failure with hypoxia: Code(s): J96.01 - Acute respiratory failure with hypoxia Status: Acute Assessment and Plan: Patient presents with shortness of breath. She was diagnosed with COVID early May. CTA chest 05/14 showing moderate amount of bilateral airspace disease. She became more hypoxic and she was moved to IMU. Her condition worsened and she became BiPAP dependent. Initially she did well with this but slowly, her SpO2 began to drop so she was moved to the ICU on 05/21. She was very resistant to being intubated but condition worsened to the point that she was intubated this morning. Continue supportive care. Prone patient as toelrated. Wean vent as toelrated. (2) Pneumonia due to COVID-19 virus: Code(s): U07.1 - COVID-19; J12.82 - Pneumonia due to coronavirus disease 2018 Status: Acute Assessment and Plan: Patient was COVID positive in Apr 2020. She became symptomatic of 05/09/21 and tested positive again for COVID on 05/10/21 ( positive a few days prior). She is unvaccinated. She received REGEN-COV (casirivimab and imdevimab) monoclonal Ab on 05/14 but presented to the ED later that night with complaints of SOB. Decadron and Remdesivir given in the ED. She was given Convalescent Plasma 05/15 and continued on Remdesivir and Decadron. CTA Chest showing no PE but moderate amount of airspace disease. Mild leukopenia noted related to COVID but resolved. Hypoxia worsened to the point she needed to be intubated today. Continue Decadron and Remdesivir. Remains off antibiotics but doubt bacterial PNA. Consider Baricitinib but concern given recent monoclonal Ab use. As above. Appreciate Pulmonary input. (3) LV dysfunction: Code(s): I51.9 - Heart disease, unspecified Status: Acute Assessment and Plan: Troponin negative x2 (>24hrs apart) on admission. EKG reviewed showing borderline ST changes in the high lateral leads and voltage criteria for LVH. Echo 05/18 showing EF 45-50% and mild LAE but LV chamber normal. Mild valvular disease noted. Etiology of the mild LV dysfunction unclear. This could be acute related to COVID or possibly chronic and unrelated. She does have hypertension but no increased LV wall thickness to suggest LVH. Patient will need repeat echocardiogram after discharge. Tolerated the Lasix well. Treat with Lasix intermittently as needed. (4) Essential (primary) hypertension: Code(s): I10 - Essential (primary) hypertension Status: Acute Assessment and Plan: Patient's blood pressure was reviewed on 05/22 Blood pressure soft at times but overall remains well controlled. Losartan remains on hold. Follow. (5) ROBERTO (obstructive sleep apnea): Code(s): G47.33 - Obstructive sleep apnea (adult) (pediatric) Status: Acute Assessment and Plan: As above. (6) Fatty liver disease, nonalcoholic: Onset Date: 04/02/21 Code(s): K76.0 - Fatty (change of) liver, not elsewhere classified Status: Acute Assessment and Plan: Hepatic steatosis again noted by CT scan. LFTs normal. Monitor LFTs on Remdesivir (7) Hypothyroid: Qualifiers: Hypothyroidism type: unspecified Qualified Code(s): E03.9 - Hypothyroidism, unspecified Code(s): E03.9 - Hypothyroidism, unspecified Status: Acute Assessment and Plan: TSH normal. Continue levothyroxine. (8) DVT prophylaxis: Code(s): Z29.9 - Encounter for prophylactic measures, unspecified Status: Acute Assessment and Plan: Lovenox Subjective Date/time seen: 05/22/21 18:19 Interval history: 55yo female with hx of HTN and hypothyroidism here for shortness of breath felt related to COVID PNA. She was diagnosed with COVID on 05/10. She is unvaccinated. Patient with worsening hypoxia overnight on BiPAP but was refusing intubation. Patient was agreeabl
[2021-05-22] MEDS: MONTELUKAST SODIUM 10 MG TABLET PO (20:54)
[2021-05-23] VITALS (31 sets, daily range): BP systolic 88–118; BP diastolic 54–69; PULSE 4–132; RESP 30; TEMP 36.1–38.2; O2SAT 86–95
[2021-05-23 00:18] LABS: Glucose Point of Care 137 mg/dl (65-105)
[2021-05-23] MEDS: MIDAZOLAM 100MG/NS 100ML(*CRX) 100 MG/100 ML BAG IV CONT ×2 (02:14→17:03)
[2021-05-23] MEDS: CISATRACURIUM BESYLATE 200 MG in DEXTROSE 5% 80 ML 9.41 ML IV CONT ×2 (03:40→14:19)
[2021-05-23 04:22] LABS: Alveolar/Arterial O2 Gradient 524.8 mmHg; Base Excess ABG 1.4 mEq/l (+/-2.0); Carboxyhemoglobin 0.3 % THb (0-2.0); Fractional Inspired Oxygen 90 %; HCO3 ABG 27.2 mEq/l (22.0-26.0); Methemoglobin ABG 0.2 %THb (0-1.5); Oxygen Content ABG 17.4 %vol (16.0-22.0); Oxygen Saturation ABG 93.2 % (95.0-100.0); Oxyhemoglobin 91.7 % THb (90.0-100.0); PCO2 ABG 47.3 mmHg (35.0-45.0); PO2 ABG 68.4 mmHg (80.0-100.0); PO2 FiO2 Ratio Arterial Blood 0.76 %; Reduced Hemoglobin 7.8 %THb (0-5.0); Total Hemoglobin 13.5 g/dL (12.0-18.0); pH ABG 7.377 (7.350-7.450)
[2021-05-23 04:24] LABS: Arterial Blood Gas Vent Mode CMV; Arterial Blood Gas Ventilator rate 30 /MIN; Device VENTILATOR; Modified Allen's Test Pass; Site Drawn RIGHT RADIAL
[2021-05-23 04:25] LABS: Arterial Blood Gas PEEP 15 cmH2O; Arterial Blood Gas Tidal Volume 350 ml
[2021-05-23] MEDS: LEVOTHYROXINE SODIUM 125 MCG TABLET PO (06:01)
[2021-05-23] MEDS: CENTRAL LINE FLUSH 10 ML IV PUSH ×3 (06:01→21:04)
[2021-05-23 06:25] LABS: Basophils Percent Auto 0.2 % (0.2-1.2); Eosinophils Absolute Auto 0.2 K/mm3 (0-0.3); Eosinophils Percent Auto 1.4 % (0-4.4); Hematocrit 40.8 % (37.0-47.0); Hemoglobin 12.7 g/dL (12.0-15.0); Immature Granulocyte Absolute 0.43 K/mm3 (0.00-0.031); Immature Granulocyte Percent A 2.9 % (0-0.5); Immature Platelet Fraction Pct 10.1 % (0.9-11.2); Lymphocytes Absolute Auto 0.16 K/mm3 (0.9-3.2); Lymphocytes Percent Auto 1.1 % (18.3-44.2); Mean Corpuscular HGB Conc 31.1 g/dl (32-36); Mean Corpuscular Hemoglobin 28.2 pg (26-34); Mean Corpuscular Volume 90.5 fl (80-100); Mean Platelet Volume 11.6 fl (7.4-10.4); Monocytes Absolute Auto 0.4 K/mm3 (0.1-0.6); Monocytes Percent Auto 2.7 % (2.6-8.5); Neutrophils Absolute Auto 13.5 K/mm3 (1.3-6.7); Neutrophils Percent Auto 91.7 % (45.5-73.1); Platelet Count Result 127 k/mm3 (150-375); Red Blood Count 4.51 M/mm3 (4.2-5.4); Red Cell Distribution Width 13.9 % (11.5-14.5); White Blood Count 14.8 K/mm3 (4.5-10.0)
[2021-05-23 06:30] LABS: INR 1.7; Prothrombin Time 19.2 Seconds (11.1-14.7)
[2021-05-23 06:35] LABS: Alanine Aminotransferase 20 U/L (4-35); Albumin Level 2.7 g/dL (3.5-5.1); Alkaline Phosphatase 71 U/L (38-126); Anion Gap 8 mmol/L (8-16); Aspartate Amino Transferase 23 U/L (14-36); Bilirubin,Total 0.5 mg/dL (0.2-1.3); Blood Urea Nitrogen 35 mg/dL (7-17); Calcium 7.7 mg/dL (8.4-10.2); Carbon Dioxide 29 mmol/L (22-30); Chloride 102 mmol/L (98-107); Estimated CRCL calculation 81 ml/min; Estimated Glomerular Filt Rate > 60; Glucose 166 mg/dL (65-110); Potassium 3.9 mmol/L (3.4-5.0); Sodium 139 mmol/L (137-145)
[2021-05-23] MEDS: FENTANYL 2,500MCG/NS250ML(*CRX 2,500 MCG/250 ML BAG 10 MCG IV CONT (07:33)
[2021-05-23 07:36] LABS: Large Platelets Present; Platelet Estimate Decreased (Adequate)
[2021-05-23] MEDS: PANTOPRAZOLE SODIUM IV 40 MG VIAL IV PUSH (07:37)
[2021-05-23] MEDS: MINERAL OIL/WHITE PETROLATUM OINTMENT 1 APPLIC EACH EYE ×2 (07:37→21:04)
[2021-05-23] MEDS: ENOXAPARIN 40 MG/0.4 ML SYRINGE SUB-Q (07:37)
[2021-05-23] MEDS: ASCORBIC ACID 250 MG TABLET PO (10:39)
[2021-05-23] MEDS: REMDESIVIR 100 MG/NS 250 ML 100 MG/250 ML BAG 250 MG IVPB (10:39)
--- NOTE | 2021-05-23 10:48 | WPDINTPN ---
Progress Note: A&P Assessment and Plan (1) Acute respiratory failure with hypoxia: Code(s): J96.01 - Acute respiratory failure with hypoxia Status: Acute Assessment and Plan: Acute Respiratory failure secondary to COVID-[address] - 05/14 IMPRESSION: 1. Moderate amount of bilateral airspace disease, appearance consistent with acute to early subacute COVID pneumonia. 2. Small lingular nodule and small T7 sclerotic focus unchanged; one-year follow-up chest CT as previously recommended. 3. No pulmonary emboli. Intubated 05/22 Most recent ABG reviewed currently on tidal volume of 350, respiratory rate of 30, peep of 15 and FiO2 of 90 per CXR pending Continue daily prone ventilation for 18 hours as tolerated Permissive hypercapnia (2) Pneumonia due to COVID-19 virus: Code(s): U07.1 - COVID-19; J12.82 - Pneumonia due to coronavirus disease 2019 Status: Acute Assessment and Plan: Patient tested positive for COVID-19 on 05/10 and received monoclonal antibody Imdevimab 600 mg and casirivimab 600 mg on 05/14 after exposure and positive test as an outpatient. -admitted on 05/15 and tested positive again at the hospital - Started on remdesivir 05/15 and will complete on 05/24 -started ondexamethasone on 05/14. - completed a five-day course of azihtromycin and ceftraixone for possible CAP on 05/19. - She was given Convalescent Plasma 05/15 - influenza swab negative. - Option of Actemra and Barcitinib were discussed with patient by Dr. Butterfield with pulmonary earlier in the course of hospitalization considering there is no data of either drug use after monoclonal antibody infusion. Patient was given option/choice of taking these drugs and patient refused at that time. (3) Hypothyroid: Qualifiers: Hypothyroidism type: unspecified Qualified Code(s): E03.9 - Hypothyroidism, unspecified Code(s): E03.9 - Hypothyroidism, unspecified Status: Acute Assessment and Plan: Continue levothyroxine (4) Dehydration: Code(s): E86.0 - Dehydration Status: Acute Assessment and Plan: Patient has not been eating and drinking adequately for last many days due to being on BiPAP Patient will be given small amount of IV fluids post intubation and was started on on tube feeds (5) Acidosis: Code(s): E87.2 - Acidosis Status: Acute Assessment and Plan: Improved with increasing respiratory and 2 amps of bicarb Additional Plan DVT prophylaxis -Lovenox Stress ulcer prophylaxis -IV PPI Nutrition -continue Tube Feeds Code Status - Full Code I called and spoke to Dr. Scott at [facility] for for this patient for consideration for ECMO. I provided all the information and discussed case. Tyler discussed the case with ECMO team at [facility] and called me back. Unfortunately they do not have any bed/ECMO circuit available at this time and nor they have any room in their wait list. I will also call [facility] later today to see if they have any opening Total Critical Care Time - 45 minutes except separately billed procedures Due to a high probability of clinically significant, life threatening deterioration, the patient required my highest level of preparedness to intervene emergently and I personally spent this critical care time directly and personally managing the patient. This critical care time included obtaining a history; examining the patient; pulse oximetry; ordering and review of studies; arranging urgent treatment with development of a management plan; evaluation of patient's response to treatment; frequent reassessment; and discussions with other providers. It was exclusive of separately billable procedures and treating other patients and teaching time. Please see Assessment and Plan section and the rest of the note for further information on patient assessment and treatment Subjective Date/time seen: 05/23/21 10:48 Overnight events reviewed. Afebrile Continues to b
--- NOTE | 2021-05-23 11:21 | PCFNICU ---
ICU Rounding Note: Pt current nutrition is Vital AF 1.2 at 40 ml/hr. Nutrition recommendation: goal rate 60 ml/hr Last recorded weight is 103.6 kg, down from 103.7 kg on admit. Bowel Motility:+BM reported 05/19 Labs Reviewed:Glu 166, Mg 3.0,Alb 2.7,BUN 35 Meds Noted:Remdesivir, Synthroid, Protonix, Lovenox, Vit C, Decadron, Fentanyl. Skin: WNL Additional Notes: Patient remains on mechanical vent. Spoke with nursing today, patient is currently at 40 ml/hr of Vital AF 1.2 and tolerating. Goal rate at 60 ml/hr. Following daily in ICU rounds. Reassessing every Thursday and Thursday.
[2021-05-23] MEDS: INSULIN ASPART (*BKC) 100 UNITS/ML SUB-Q ×2 (12:10→17:06)
[2021-05-23 12:21] LABS: Glucose Point of Care 222 mg/dl (65-105)
[2021-05-23 17:12] LABS: Glucose Point of Care 218 mg/dl (65-105)
--- NOTE | 2021-05-23 18:36 | PM.IMPN ---
Progress Note: A&P Assessment and Plan (1) Acute respiratory failure with hypoxia: Code(s): J96.01 - Acute respiratory failure with hypoxia Status: Acute Assessment and Plan: Patient presents with shortness of breath. She was diagnosed with COVID early May. CTA chest 05/14 showing moderate amount of bilateral airspace disease. She became more hypoxic and she was moved to IMU. Her condition worsened and she became BiPAP dependent. Initially she did well with this but slowly, her SpO2 began to drop so she was moved to the ICU on 05/21. She was very resistant to being intubated but condition worsened to the point that she was intubated 05/22. She is now intubated, sedated and paralyzed for vent synchrony. Continue supportive care. Prone patient as tolerated. Wean vent as tolerated. ECHO being considered. (2) Pneumonia due to COVID-19 virus: Code(s): U07.1 - COVID-19; J12.82 - Pneumonia due to coronavirus disease 2018 Status: Acute Assessment and Plan: Patient was COVID positive in 05/02/20. She became symptomatic of 05/09/21 and tested positive again for COVID on 05/10/21 ( positive a few days prior). She is unvaccinated. She received REGEN-COV (casirivimab and imdevimab) monoclonal Ab on 05/14 but presented to the ED later that night with complaints of SOB. Her confirmatory test was positive here on 05/15. She was started on Decadron and Remdesivir. She was given Convalescent Plasma 05/15. CTA Chest showing no PE but moderate amount of airspace disease. Mild leukopenia noted related to COVID but resolved. Hypoxia worsened to the point she needed to be intubated Continue Decadron and Remdesivir. Remains off antibiotics but doubt bacterial PNA. Consider Baricitinib but concern given recent monoclonal Ab use. As above. Appreciate Pulmonary input. (3) LV dysfunction: Code(s): I51.9 - Heart disease, unspecified Status: Acute Assessment and Plan: Troponin negative x2 (>24hrs apart) on admission. EKG reviewed showing borderline ST changes in the high lateral leads and voltage criteria for LVH. Echo 05/18 showing EF 45-50% and mild LAE but LV chamber normal. Mild valvular disease noted. Etiology of the mild LV dysfunction unclear. This could be acute related to COVID or possibly chronic and unrelated. She does have hypertension but no increased LV wall thickness to suggest LVH. Patient will need repeat echocardiogram after discharge. Receiving Lasix intermittently as needed. (4) Essential (primary) hypertension: Code(s): I10 - Essential (primary) hypertension Status: Acute Assessment and Plan: Patient's blood pressure was reviewed on 05/23 Blood pressure remains soft at times. Losartan remains on hold. Follow. (5) ROBERTO (obstructive sleep apnea): Code(s): G47.33 - Obstructive sleep apnea (adult) (pediatric) Status: Acute Assessment and Plan: As above. (6) Fatty liver disease, nonalcoholic: Onset Date: 04/02/21 Code(s): K76.0 - Fatty (change of) liver, not elsewhere classified Status: Acute Assessment and Plan: Hepatic steatosis again noted by CT scan. LFTs normal. Monitor LFTs on Remdesivir (7) Hypothyroid: Qualifiers: Hypothyroidism type: unspecified Qualified Code(s): E03.9 - Hypothyroidism, unspecified Code(s): E03.9 - Hypothyroidism, unspecified Status: Acute Assessment and Plan: TSH normal. Continue levothyroxine. (8) DVT prophylaxis: Code(s): Z29.9 - Encounter for prophylactic measures, unspecified Status: Acute Assessment and Plan: Lovenox Subjective Date/time seen: 05/23/21 18:36 Interval history: 55yo female with hx of HTN and hypothyroidism here for shortness of breath felt related to COVID PNA. She was diagnosed with COVID on 05/10. She is unvaccinated. Patient remains intubated, sedated and paralyzed. Patient tolerating be
[2021-05-23] MEDS: MONTELUKAST SODIUM 10 MG TABLET PO (21:04)
[2021-05-24] VITALS (62 sets, daily range): BP systolic 85–119; BP diastolic 56–73; PULSE 73–109; RESP 22–31; TEMP 36.3–36.8; O2SAT 84–97
[2021-05-24] MEDS: INSULIN ASPART (*BKC) 100 UNITS/ML SUB-Q ×4 (00:14→17:07)
[2021-05-24 00:27] LABS: Glucose Point of Care 208 mg/dl (65-105)
[2021-05-24] MEDS: CISATRACURIUM BESYLATE 200 MG in DEXTROSE 5% 80 ML 7.85 ML IV CONT ×2 (00:48→10:43)
[2021-05-24 04:48] LABS: Basophils Percent Auto 0.1 % (0.2-1.2); Eosinophils Absolute Auto 0.2 K/mm3 (0-0.3); Eosinophils Percent Auto 1.1 % (0-4.4); Hematocrit 39.5 % (37.0-47.0); Hemoglobin 12.2 g/dL (12.0-15.0); Immature Granulocyte Absolute 0.39 K/mm3 (0.00-0.031); Immature Granulocyte Percent A 2.5 % (0-0.5); Lymphocytes Absolute Auto 0.25 K/mm3 (0.9-3.2); Lymphocytes Percent Auto 1.6 % (18.3-44.2); Mean Corpuscular HGB Conc 30.9 g/dl (32-36); Mean Corpuscular Hemoglobin 28.6 pg (26-34); Mean Corpuscular Volume 92.5 fl (80-100); Mean Platelet Volume 12.2 fl (7.4-10.4); Monocytes Absolute Auto 0.5 K/mm3 (0.1-0.6); Monocytes Percent Auto 3.5 % (2.6-8.5); Neutrophils Percent Auto 91.2 % (45.5-73.1); Platelet Count Result 125 k/mm3 (150-375); Red Blood Count 4.27 M/mm3 (4.2-5.4); Red Cell Distribution Width 14.3 % (11.5-14.5); White Blood Count 15.4 K/mm3 (4.5-10.0)
[2021-05-24 05:03] LABS: Alanine Aminotransferase 20 U/L (4-35); Albumin Level 2.7 g/dL (3.5-5.1); Alkaline Phosphatase 62 U/L (38-126); Anion Gap 4 mmol/L (8-16); Aspartate Amino Transferase 26 U/L (14-36); Bilirubin,Total 0.3 mg/dL (0.2-1.3); Blood Urea Nitrogen 41 mg/dL (7-17); Calcium 7.8 mg/dL (8.4-10.2); Carbon Dioxide 33 mmol/L (22-30); Chloride 100 mmol/L (98-107); Estimated CRCL calculation 91 ml/min; Estimated Glomerular Filt Rate > 60; Glucose 215 mg/dL (65-110); Magnesium 3.5 mg/dL (1.6-2.3); Potassium 4.1 mmol/L (3.4-5.0); Sodium 137 mmol/L (137-145)
[2021-05-24 05:37] LABS: Alveolar/Arterial O2 Gradient 589.1 mmHg; Base Excess ABG -0.7 mEq/l (+/-2.0); Carboxyhemoglobin 0.3 % THb (0-2.0); Fractional Inspired Oxygen 100 %; Methemoglobin ABG 0.2 %THb (0-1.5); Oxygen Content ABG 17.3 %vol (16.0-22.0); Oxygen Saturation ABG 95.2 % (95.0-100.0); Oxyhemoglobin 94.2 % THb (90.0-100.0); PCO2 ABG 45.1 mmHg (35.0-45.0); PO2 ABG 78.8 mmHg (80.0-100.0); PO2 FiO2 Ratio Arterial Blood 0.79 %; Reduced Hemoglobin 5.3 %THb (0-5.0); pH ABG 7.361 (7.350-7.450)
[2021-05-24] MEDS: LEVOTHYROXINE SODIUM 125 MCG TABLET PO (05:44)
[2021-05-24] MEDS: CENTRAL LINE FLUSH 10 ML IV PUSH ×3 (05:44→19:50)
[2021-05-24 05:54] LABS: Device VENTILATOR; Modified Allen's Test Unable to perform; Site Drawn RIGHT RADIAL
[2021-05-24 05:55] LABS: Arterial Blood Gas PEEP 15 cmH2O; Arterial Blood Gas Tidal Volume 350 ml; Arterial Blood Gas Vent Mode CMV; Arterial Blood Gas Ventilator rate 30 /MIN
[2021-05-24] MEDS: FENTANYL 2,500MCG/NS250ML(*CRX 2,500 MCG/250 ML BAG 10 MCG IV CONT (07:25)
[2021-05-24] MEDS: ASCORBIC ACID 250 MG TABLET PO (07:30)
[2021-05-24] MEDS: ENOXAPARIN 40 MG/0.4 ML SYRINGE SUB-Q (07:30)
[2021-05-24] MEDS: PANTOPRAZOLE SODIUM IV 40 MG VIAL IV PUSH (07:31)
[2021-05-24] MEDS: MINERAL OIL/WHITE PETROLATUM OINTMENT 1 APPLIC EACH EYE ×2 (07:31→19:50)
[2021-05-24] MEDS: FUROSEMIDE INJ 40 MG/4 ML VIAL IV PUSH (09:19)
[2021-05-24] MEDS: REMDESIVIR 100 MG/NS 250 ML 100 MG/250 ML BAG 250 MG IVPB (09:19)
[2021-05-24] MEDS: EPOPROSTENOL SODIUM 0.5 MG VIAL 1 MG INHALATION ×3 (09:32→21:31)
--- NOTE | 2021-05-24 10:46 | WPDINTPN ---
Progress Note: A&P Assessment and Plan (1) Acute respiratory failure with hypoxia: Code(s): J96.01 - Acute respiratory failure with hypoxia Status: Acute Assessment and Plan: Acute Respiratory failure secondary to COVID-[address] - 05/14 IMPRESSION: 1. Moderate amount of bilateral airspace disease, appearance consistent with acute to early subacute COVID pneumonia. 2. Small lingular nodule and small T7 sclerotic focus unchanged; one-year follow-up chest CT as previously recommended. 3. No pulmonary emboli. CXR ordered and pending Intubated 05/22 no significant improvement in hypoxia post intubation Most recent ABG reviewed currently on tidal volume of 350, respiratory rate of 30, peep of 15 and FiO2 of 100% Saturations dropped to 88-89% on placing in supine position. Continue daily prone ventilation for 18 hours as tolerated Permissive hypercapnia Start inhaled Flolan 05/24 Lasix IV x1 today (2) Pneumonia due to COVID-19 virus: Code(s): U07.1 - COVID-19; J12.82 - Pneumonia due to coronavirus disease 2019 Status: Acute Assessment and Plan: Patient tested positive for COVID-19 on 05/10 and received monoclonal antibody Imdevimab 600 mg and casirivimab 600 mg on 05/14 after exposure and positive test as an outpatient. -admitted on 05/15 and tested positive again at the hospital - Started on remdesivir 05/15 and will complete on 05/24 - started on dexamethasone on 05/14. - completed a five-day course of azithromycin and ceftriaxone for possible CAP on 05/19. - She was given Convalescent Plasma 05/15 - influenza swab negative. - Option of Actemra and Barcitinib were discussed with patient by Dr. Butterfield with pulmonary earlier in the course of hospitalization considering there is no data of either drug use after monoclonal antibody infusion. Patient was given option/choice of taking these drugs and patient refused at that time. (3) Hypothyroid: Qualifiers: Hypothyroidism type: unspecified Qualified Code(s): E03.9 - Hypothyroidism, unspecified Code(s): E03.9 - Hypothyroidism, unspecified Status: Acute Assessment and Plan: Continue levothyroxine (4) Acidosis: Code(s): E87.2 - Acidosis Status: Acute Assessment and Plan: Improved with increasing respiratory and 2 amps of bicarb Additional Plan DVT prophylaxis -Lovenox Stress ulcer prophylaxis -IV PPI Nutrition -continue Tube Feeds Code Status - Full Code 05/23 I called and spoke to Dr. Scott at [facility] for for this patient for consideration for ECMO. I provided all the information and discussed case. Tyler discussed the case with ECMO team at [facility] and called me back. Unfortunately they do not have any bed/ECMO circuit available at this time and nor they have any room in their wait list. Spoke to Dr. Don with Critical Care at [facility] regarding evaluation for ECMO. Again they do not have any bed available at this time but will call back in case a bed opens up. I spoke to Dr. Mejía by phone and updated him with patient's current status, current treatment plan, my conversation with [facility] and [facility] ECMO teams and guarded prognosis. I answered all his questions. Total Critical Care Time - 35 minutes except separately billed procedures Due to a high probability of clinically significant, life threatening deterioration, the patient required my highest level of preparedness to intervene emergently and I personally spent this critical care time directly and personally managing the patient. This critical care time included obtaining a history; examining the patient; pulse oximetry; ordering and review of studies; arranging urgent treatment with development of a management plan; evaluation of patient's response to treatment; frequent reassessment; and discussions with other providers. It was exclusive of separately billable procedures and treating other patients and teachin
--- NOTE | 2021-05-24 10:57 | PCNFU ---
Nutrition Follow-Up Complete: Inadequate Oral intake as related to COVID pneumonia as evidenced by poor po intake. goal: Meet estimated nutritional needs Patient is progressing towards goal. We will continue current goal. Pt current nutrition is Vital AR 1.2 at 60 ml/hr over 22 hours. Last recorded weight is 103.6 kg, down from 103.7 kg on admit. Bowel Motility: last BM reported 05/19 Labs Reviewed:Glu 215, BUN 41, Alb 2.7 Meds Noted:Vit C, Decadron, Fentanyl, Lovenox, Synthroid, Protonix, Remdesivir, Flolan. Skin:WNL Additional Notes: Patient remains on Mechanical Vent and tube feedings of Vital AR 1.2 at 60 ml/hr (goal rate), providing 1584 kcals/99 gms protein/1071 ml water. Tolerating tube feedings. Agree with diet orders. Monitor daily in ICU rounds, reassessing every Thursday and Thursday.
[2021-05-24] MEDS: MIDAZOLAM 100MG/NS 100ML(*CRX) 100 MG/100 ML BAG IV CONT (12:11)
[2021-05-24 12:28] LABS: Glucose Point of Care 290 mg/dl (65-105)
[2021-05-24 17:15] LABS: Glucose Point of Care 260 mg/dl (65-105)
--- NOTE | 2021-05-24 17:25 | PM.IMPN ---
Progress Note: A&P Assessment and Plan (1) Acute respiratory failure with hypoxia: Code(s): J96.01 - Acute respiratory failure with hypoxia Status: Acute Assessment and Plan: Patient presents with shortness of breath. She was diagnosed with COVID early May. CTA chest 05/14 showing no PE but moderate amount of bilateral airspace disease. She became more hypoxic and she was moved to IMU. Her condition worsened and she became BiPAP dependent. Initially she did well with this but slowly, her SpO2 began to drop so she was moved to the ICU on 05/21. She was very resistant to being intubated but condition worsened to the point that she was intubated 05/22. She is now intubated, sedated and paralyzed for vent synchrony. Flolan started. Continue supportive care. Prone patient as tolerated. Wean vent as tolerated. ECMO being considered. (2) Pneumonia due to COVID-19 virus: Code(s): U07.1 - COVID-19; J12.82 - Pneumonia due to coronavirus disease 2019 Status: Acute Assessment and Plan: Patient has been COVID positive in the past (05/02/20). She became symptomatic of 05/09/21 and tested positive again for COVID on 05/10/21 ( positive a few days prior). She is unvaccinated. She received REGEN-COV (casirivimab and imdevimab) monoclonal Ab on 05/14 but presented to the ED later that night with complaints of SOB. Her confirmatory PCR test was positive here on 05/15. She was started on Decadron and Remdesivir. She was given Convalescent Plasma 05/15. CTA Chest showing no PE but moderate amount of airspace disease. Mild leukopenia noted related to COVID but resolved. Hypoxia worsened to the point she needed to be intubated 05/22/21. Continue Decadron; she completes Remdesivir today. Remains off antibiotics but doubt bacterial PNA. Baricitinib was considered but concern given recent monoclonal Ab use and now outside the window. As above. Appreciate Pulmonary and prep room supervisor input. (3) Pneumomediastinum: Code(s): J98.2 - Interstitial emphysema Status: Acute Assessment and Plan: There is noted to be gas in the neck soft tissues by CXR today. Images reviewed. Related to the high PEEP. Follow. (4) LV dysfunction: Code(s): I51.9 - Heart disease, unspecified Status: Acute Assessment and Plan: Troponin negative x2 (>24hrs apart) on admission. EKG reviewed showing borderline ST changes in the high lateral leads and voltage criteria for LVH. Echo 05/18 showing EF 45-50% and mild LAE but LV chamber normal. Mild valvular disease noted. Etiology of the mild LV dysfunction unclear. This could be acute related to COVID or possibly chronic and unrelated. She does have hypertension but no increased LV wall thickness to suggest LVH. Patient will need repeat echocardiogram after discharge. Treat with Lasix intermittently as needed. (5) Essential (primary) hypertension: Code(s): I10 - Essential (primary) hypertension Status: Acute Assessment and Plan: Patient's blood pressure was reviewed on 05/24 Blood pressure remains soft at times. Losartan remains on hold. Follow. (6) ROBERTO (obstructive sleep apnea): Code(s): G47.33 - Obstructive sleep apnea (adult) (pediatric) Status: Acute Assessment and Plan: As above. (7) Fatty liver disease, nonalcoholic: Onset Date: 04/02/21 Code(s): K76.0 - Fatty (change of) liver, not elsewhere classified Status: Acute Assessment and Plan: Hepatic steatosis again noted by CT scan. LFTs normal. Follow (8) Hypothyroid: Qualifiers: Hypothyroidism type: unspecified Qualified Code(s): E03.9 - Hypothyroidism, unspecified Code(s): E03.9 - Hypothyroidism, unspecified Status: Acute Assessment and Plan: TSH normal. Continue levothyroxine. (9) DVT prophylaxis: Code(s): Z29.9 - Encounter for prophylactic measures, unspecified Status: Acute
[2021-05-24] MEDS: MONTELUKAST SODIUM 10 MG TABLET PO (19:50)
[2021-05-25] VITALS (43 sets, daily range): BP systolic 89–176; BP diastolic 55–98; PULSE 80–161; RESP 30; TEMP 36.2–36.5; O2SAT 90–100
[2021-05-25] MEDS: CISATRACURIUM BESYLATE 200 MG in DEXTROSE 5% 80 ML 7.85 ML IV CONT ×3 (00:26→23:28)
[2021-05-25] MEDS: INSULIN ASPART (*BKC) 100 UNITS/ML SUB-Q ×7 (00:28→23:30)
[2021-05-25 00:34] LABS: Glucose Point of Care 291 mg/dl (65-105)
[2021-05-25] MEDS: EPOPROSTENOL SODIUM 0.5 MG VIAL 1 MG INHALATION ×3 (03:26→21:27)
[2021-05-25] MEDS: CENTRAL LINE FLUSH 10 ML IV PUSH ×3 (05:36→20:15)
[2021-05-25 05:49] LABS: Alveolar/Arterial O2 Gradient 510.5 mmHg; Base Excess ABG 4.2 mEq/l (+/-2.0); Carboxyhemoglobin 0.3 % THb (0-2.0); Fractional Inspired Oxygen 100 %; HCO3 ABG 28.7 mEq/l (22.0-26.0); Methemoglobin ABG 0.2 %THb (0-1.5); Oxygen Content ABG 17.7 %vol (16.0-22.0); Oxygen Saturation ABG 99.1 % (95.0-100.0); Oxyhemoglobin 97.6 % THb (90.0-100.0); PCO2 ABG 42.2 mmHg (35.0-45.0); PO2 ABG 160.3 mmHg (80.0-100.0); Reduced Hemoglobin 1.9 %THb (0-5.0); Total Hemoglobin 12.7 g/dL (12.0-18.0)
[2021-05-25 05:51] LABS: Device VENTILATOR; Modified Allen's Test Pass; Site Drawn LEFT RADIAL
[2021-05-25 05:52] LABS: Arterial Blood Gas PEEP 15 cmH2O; Arterial Blood Gas Tidal Volume 350 ml; Arterial Blood Gas Vent Mode CMV; Arterial Blood Gas Ventilator rate 30 /MIN
[2021-05-25 06:23] LABS: Basophils Percent Auto 0.3 % (0.2-1.2); Eosinophils Absolute Auto 0.2 K/mm3 (0-0.3); Eosinophils Percent Auto 1.1 % (0-4.4); Hematocrit 37.6 % (37.0-47.0); Hemoglobin 11.5 g/dL (12.0-15.0); Immature Granulocyte Absolute 0.41 K/mm3 (0.00-0.031); Immature Granulocyte Percent A 2.8 % (0-0.5); Lymphocytes Absolute Auto 0.38 K/mm3 (0.9-3.2); Lymphocytes Percent Auto 2.6 % (18.3-44.2); Mean Corpuscular HGB Conc 30.6 g/dl (32-36); Mean Corpuscular Volume 91.5 fl (80-100); Mean Platelet Volume 12.2 fl (7.4-10.4); Monocytes Absolute Auto 0.7 K/mm3 (0.1-0.6); Neutrophils Absolute Auto 13.2 K/mm3 (1.3-6.7); Neutrophils Percent Auto 88.2 % (45.5-73.1); Platelet Count Result 135 k/mm3 (150-375); Red Blood Count 4.11 M/mm3 (4.2-5.4); Red Cell Distribution Width 14.4 % (11.5-14.5); White Blood Count 14.9 K/mm3 (4.5-10.0)
[2021-05-25] MEDS: LEVOTHYROXINE SODIUM 125 MCG TABLET PO (06:31)
[2021-05-25 06:34] LABS: Alanine Aminotransferase 36 U/L (4-35); Albumin Level 2.5 g/dL (3.5-5.1); Alkaline Phosphatase 71 U/L (38-126); Anion Gap 5 mmol/L (8-16); Aspartate Amino Transferase 33 U/L (14-36); Bilirubin,Total 0.3 mg/dL (0.2-1.3); Blood Urea Nitrogen 37 mg/dL (7-17); Calcium 7.9 mg/dL (8.4-10.2); Carbon Dioxide 34 mmol/L (22-30); Chloride 102 mmol/L (98-107); Estimated CRCL calculation 106 ml/min; Estimated Glomerular Filt Rate > 60; Glucose 280 mg/dL (65-110); Magnesium 2.4 mg/dL (1.6-2.3); Sodium 141 mmol/L (137-145)
[2021-05-25] MEDS: INSULIN GLARGINE (*BKC) 100 UNITS/ML 20 UNITS SUB-Q (08:28)
[2021-05-25] MEDS: FUROSEMIDE INJ 40 MG/4 ML VIAL IV PUSH (08:28)
[2021-05-25] MEDS: ENOXAPARIN 40 MG/0.4 ML SYRINGE SUB-Q (08:29)
[2021-05-25] MEDS: PANTOPRAZOLE SODIUM IV 40 MG VIAL IV PUSH (08:29)
[2021-05-25] MEDS: MINERAL OIL/WHITE PETROLATUM OINTMENT 1 APPLIC EACH EYE ×2 (08:30→20:15)
[2021-05-25] MEDS: MIDAZOLAM 100MG/NS 100ML(*CRX) 100 MG/100 ML BAG IV CONT (08:40)
[2021-05-25] MEDS: FENTANYL 2,500MCG/NS250ML(*CRX 2,500 MCG/250 ML BAG 10 MCG IV CONT (08:41)
[2021-05-25 08:48] LABS: Glucose Point of Care 259 mg/dl (65-105)
[2021-05-25] MEDS: MIDAZOLAM HCL (*CRX) 2 MG/2 ML VIAL 5 MG IV PUSH ×2 (10:18→15:01)
[2021-05-25] MEDS: METOPROLOL TARTRATE INJ 5 MG/5 ML VIAL IV PUSH (10:22)
--- NOTE | 2021-05-25 12:04 | WPDINTPN ---
Progress Note: A&P Assessment and Plan (1) Acute respiratory failure with hypoxia: Code(s): J96.01 - Acute respiratory failure with hypoxia Status: Acute Assessment and Plan: Acute Respiratory failure secondary to COVID-[address] - 05/14 IMPRESSION: 1. Moderate amount of bilateral airspace disease, appearance consistent with acute to early subacute COVID pneumonia. 2. Small lingular nodule and small T7 sclerotic focus unchanged; one-year follow-up chest CT as previously recommended. 3. No pulmonary emboli. CXR reviewed and does not show new medicines today Intubated 05/22 no significant improvement in hypoxia post intubation Most recent ABG reviewed currently on tidal volume of 350, respiratory rate of 30, peep of 15 and FiO2 of 90% Saturations dropped to 88-89% on placing in supine position. Continue daily prone ventilation for 18 hours as tolerated Permissive hypercapnia Continue inhaled Flolan which was started on 05/24 Lasix IV x1 again today (2) Pneumonia due to COVID-19 virus: Code(s): U07.1 - COVID-19; J12.82 - Pneumonia due to coronavirus disease 2019 Status: Acute Assessment and Plan: Patient tested positive for COVID-19 on 05/10 and received monoclonal antibody Imdevimab 600 mg and casirivimab 600 mg on 05/14 after exposure and positive test as an outpatient. -admitted on 05/15 and tested positive again at the hospital - Started on remdesivir 05/15 and will complete on 05/24 - started on dexamethasone on 05/14. - completed a five-day course of azithromycin and ceftriaxone for possible CAP on 05/19. - She was given Convalescent Plasma 05/15 - influenza swab negative. - Option of Actemra and Barcitinib were discussed with patient by Dr. Butterfield with pulmonary earlier in the course of hospitalization considering there is no data of either drug use after monoclonal antibody infusion. Patient was given option/choice of taking these drugs and patient refused at that time. (3) Hypothyroid: Qualifiers: Hypothyroidism type: unspecified Qualified Code(s): E03.9 - Hypothyroidism, unspecified Code(s): E03.9 - Hypothyroidism, unspecified Status: Acute Assessment and Plan: Continue levothyroxine (4) Acidosis: Code(s): E87.2 - Acidosis Status: Acute Assessment and Plan: Improved with increasing respiratory and 2 amps of bicarb Additional Plan DVT prophylaxis -Lovenox Stress ulcer prophylaxis -IV PPI Nutrition -continue Tube Feeds Code Status - Full Code 05/23 I called and spoke to Dr. Scott at [facility] for for this patient for consideration for ECMO. I provided all the information and discussed case. Tyler discussed the case with ECMO team at [facility] and called me back. Unfortunately they do not have any bed/ECMO circuit available at this time and nor they have any room in their wait list. Spoke to Dr. Don with Critical Care at [facility] regarding evaluation for ECMO. Again they do not have any bed available at this time but will call back in case a bed opens up. Total Critical Care Time - 32 minutes except separately billed procedures Due to a high probability of clinically significant, life threatening deterioration, the patient required my highest level of preparedness to intervene emergently and I personally spent this critical care time directly and personally managing the patient. This critical care time included obtaining a history; examining the patient; pulse oximetry; ordering and review of studies; arranging urgent treatment with development of a management plan; evaluation of patient's response to treatment; frequent reassessment; and discussions with other providers. It was exclusive of separately billable procedures and treating other patients and teaching time. Please see Assessment and Plan section and the rest of the note for further information on patient assessment and treatment Subjective Date/time se
[2021-05-25 12:34] LABS: Glucose Point of Care 303 mg/dl (65-105)
[2021-05-25 16:30] LABS: Glucose Point of Care 294 mg/dl (65-105)
[2021-05-25] MEDS: MONTELUKAST SODIUM 10 MG TABLET PO (20:15)
[2021-05-25 20:22] LABS: Glucose Point of Care 254 mg/dl (65-105)
[2021-05-25] MEDS: MIDAZOLAM 100MG/NS 100ML(*CRX) 100 MG/100 ML BAG 8 MG IV CONT (23:27)
[2021-05-25 23:50] LABS: Glucose Point of Care 260 mg/dl (65-105)
[2021-05-26] VITALS (42 sets, daily range): BP systolic 89–159; BP diastolic 53–94; PULSE 83–134; RESP 30; TEMP 36.4–38.1; O2SAT 87–97
[2021-05-26] MEDS: INSULIN ASPART (*BKC) 100 UNITS/ML SUB-Q ×6 (04:19→23:40)
[2021-05-26] MEDS: FENTANYL 2,500MCG/NS250ML(*CRX 2,500 MCG/250 ML BAG 15 MCG IV CONT ×2 (04:20→21:47)
[2021-05-26] MEDS: LEVOTHYROXINE SODIUM 125 MCG TABLET PO (04:25)
[2021-05-26] MEDS: CENTRAL LINE FLUSH 10 ML IV PUSH ×3 (04:25→19:43)
[2021-05-26 04:27] LABS: Alveolar/Arterial O2 Gradient 494.3 mmHg; Base Excess ABG 6.7 mEq/l (+/-2.0); Carboxyhemoglobin 0.1 % THb (0-2.0); Fractional Inspired Oxygen 90 %; HCO3 ABG 34.1 mEq/l (22.0-26.0); Methemoglobin ABG 0.3 %THb (0-1.5); Oxygen Content ABG 19.7 %vol (16.0-22.0); Oxyhemoglobin 94.9 % THb (90.0-100.0); PO2 ABG 85.9 mmHg (80.0-100.0); PO2 FiO2 Ratio Arterial Blood 0.95 %; Reduced Hemoglobin 4.7 %THb (0-5.0); Total Hemoglobin 14.7 g/dL (12.0-18.0); pH ABG 7.372 (7.350-7.450)
[2021-05-26 04:28] LABS: Device VENTILATOR; Modified Allen's Test Pass; Site Drawn RIGHT RADIAL
[2021-05-26 04:29] LABS: Arterial Blood Gas Vent Mode CMV; Arterial Blood Gas Ventilator rate 350 /MIN
[2021-05-26 04:30] LABS: Arterial Blood Gas PEEP 15 cmH2O; Arterial Blood Gas Tidal Volume 350 ml
[2021-05-26 04:44] LABS: Glucose Point of Care 294 mg/dl (65-105)
[2021-05-26] MEDS: MIDAZOLAM HCL (*CRX) 2 MG/2 ML VIAL 5 MG IV PUSH ×3 (05:58→17:52)
[2021-05-26] MEDS: METOPROLOL TARTRATE INJ 5 MG/5 ML VIAL IV PUSH (05:58)
[2021-05-26 06:18] LABS: Basophils Absolute Auto 0.1 K/mm3 (0.0-0.1); Basophils Percent Auto 0.3 % (0.2-1.2); Eosinophils Absolute Auto 0.2 K/mm3 (0-0.3); Eosinophils Percent Auto 0.9 % (0-4.4); Hematocrit 40.9 % (37.0-47.0); Hemoglobin 12.3 g/dL (12.0-15.0); Immature Granulocyte Absolute 0.64 K/mm3 (0.00-0.031); Immature Granulocyte Percent A 3.6 % (0-0.5); Lymphocytes Absolute Auto 0.45 K/mm3 (0.9-3.2); Lymphocytes Percent Auto 2.6 % (18.3-44.2); Mean Corpuscular HGB Conc 30.1 g/dl (32-36); Mean Corpuscular Hemoglobin 28.4 pg (26-34); Mean Corpuscular Volume 94.5 fl (80-100); Mean Platelet Volume 11.9 fl (7.4-10.4); Monocytes Absolute Auto 1.1 K/mm3 (0.1-0.6); Monocytes Percent Auto 6.1 % (2.6-8.5); Neutrophils Absolute Auto 15.2 K/mm3 (1.3-6.7); Neutrophils Percent Auto 86.5 % (45.5-73.1); Platelet Count Result 166 k/mm3 (150-375); Red Blood Count 4.33 M/mm3 (4.2-5.4); Red Cell Distribution Width 14.6 % (11.5-14.5); White Blood Count 17.6 K/mm3 (4.5-10.0)
[2021-05-26 06:28] LABS: Alanine Aminotransferase 50 U/L (4-35); Albumin Level 2.7 g/dL (3.5-5.1); Alkaline Phosphatase 81 U/L (38-126); Anion Gap 6 mmol/L (8-16); Aspartate Amino Transferase 36 U/L (14-36); Bilirubin,Total 0.4 mg/dL (0.2-1.3); Blood Urea Nitrogen 41 mg/dL (7-17); Carbon Dioxide 34 mmol/L (22-30); Chloride 101 mmol/L (98-107); Estimated CRCL calculation 107 ml/min; Estimated Glomerular Filt Rate > 60; Glucose 311 mg/dL (65-110); Magnesium 2.5 mg/dL (1.6-2.3); Sodium 141 mmol/L (137-145)
[2021-05-26] MEDS: ENOXAPARIN 40 MG/0.4 ML SYRINGE SUB-Q (08:04)
[2021-05-26] MEDS: PANTOPRAZOLE SODIUM IV 40 MG VIAL IV PUSH (08:04)
[2021-05-26] MEDS: INSULIN GLARGINE (*BKC) 100 UNITS/ML 20 UNITS SUB-Q (08:05)
[2021-05-26] MEDS: MINERAL OIL/WHITE PETROLATUM OINTMENT 1 APPLIC EACH EYE ×2 (08:05→19:43)
[2021-05-26 08:45] LABS: Glucose Point of Care 264 mg/dl (65-105)
--- NOTE | 2021-05-26 09:15 | WPDINTPN ---
Progress Note: A&P Assessment and Plan (1) Acute respiratory failure with hypoxia: Code(s): J96.01 - Acute respiratory failure with hypoxia Status: Acute Assessment and Plan: Acute Respiratory failure secondary to COVID-[address] - 05/14 IMPRESSION: 1. Moderate amount of bilateral airspace disease, appearance consistent with acute to early subacute COVID pneumonia. 2. Small lingular nodule and small T7 sclerotic focus unchanged; one-year follow-up chest CT as previously recommended. 3. No pulmonary emboli. CXR yesterday did not show any pneumomediastinum. In for today Intubated 05/22 no significant improvement in hypoxia post intubation Most recent ABG reviewed currently on tidal volume of 350, respiratory rate of 30, peep of 15 and FiO2 of 90% Continue daily prone ventilation for 18 hours as tolerated Permissive hypercapnia Continue inhaled Flolan which was started on 05/24 Lasix IV x1 again today (2) Pneumonia due to COVID-19 virus: Code(s): U07.1 - COVID-19; J12.82 - Pneumonia due to coronavirus disease 2019 Status: Acute Assessment and Plan: Patient tested positive for COVID-19 on 05/10 and received monoclonal antibody Imdevimab 600 mg and casirivimab 600 mg on 05/14 after exposure and positive test as an outpatient. -admitted on 05/15 and tested positive again at the hospital - Started on remdesivir 05/15 and completed on 05/24 - started on dexamethasone on 05/14. - completed a five-day course of azithromycin and ceftriaxone for possible CAP on 05/19. - She was given Convalescent Plasma 05/15 - influenza swab negative. - Option of Actemra and Barcitinib were discussed with patient by Dr. Butterfield with pulmonary earlier in the course of hospitalization considering there is no data of either drug use after monoclonal antibody infusion. Patient was given option/choice of taking these drugs and patient refused at that time. - repeat inflammatory markers today (3) Hypothyroid: Qualifiers: Hypothyroidism type: unspecified Qualified Code(s): E03.9 - Hypothyroidism, unspecified Code(s): E03.9 - Hypothyroidism, unspecified Status: Acute Assessment and Plan: Continue levothyroxine (4) Acidosis: Code(s): E87.2 - Acidosis Status: Acute Assessment and Plan: Improved with increasing respiratory and 2 amps of bicarb (5) Hyperglycemia: Code(s): R73.9 - Hyperglycemia, unspecified Status: Acute Assessment and Plan: increase Lantus to 30 change tube feeds to Glucerna (6) Tachycardia: Code(s): R00.0 - Tachycardia, unspecified Status: Acute Assessment and Plan: patient has had couple of episodes of sinus tachycardia which could be due to under sedation with paralysis. resolved with IV Versed and Lopressor push. Due to monitor and treat as needed Additional Plan DVT prophylaxis -Lovenox Stress ulcer prophylaxis -IV PPI Nutrition -continue Tube Feeds Code Status - Full Code 05/23 I called and spoke to Dr. Scott at [facility] for for this patient for consideration for ECMO. I provided all the information and discussed case. Tyler discussed the case with ECMO team at [facility] and called me back. Unfortunately they do not have any bed/ECMO circuit available at this time and nor they have any room in their wait list. Spoke to Dr. Don with Critical Care at [facility] regarding evaluation for ECMO. Again they do not have any bed available at this time but will call back in case a bed opens up. Total Critical Care Time - 30 minutes except separately billed procedures Due to a high probability of clinically significant, life threatening deterioration, the patient required my highest level of preparedness to intervene emergently and I personally spent this critical care time directly and personally managing the patient. This critical care time included obtaining a history; examining the patient;
[2021-05-26] MEDS: EPOPROSTENOL SODIUM 0.5 MG VIAL 1 MG INHALATION ×3 (10:05→22:04)
[2021-05-26] MEDS: INSULIN GLARGINE (*BKC) 100 UNITS/ML 10 UNITS SUB-Q (10:10)
[2021-05-26] MEDS: FUROSEMIDE INJ 40 MG/4 ML VIAL IV PUSH (10:13)
[2021-05-26 10:51] LABS: CRP 4.9 mg/dL (<1.0); Lactate Dehydrogenase 794 U/L (313-618)
[2021-05-26] MEDS: MIDAZOLAM 100MG/NS 100ML(*CRX) 100 MG/100 ML BAG 8 MG IV CONT ×2 (11:53→23:31)
[2021-05-26] MEDS: CISATRACURIUM BESYLATE 200 MG in DEXTROSE 5% 80 ML 7.85 ML IV CONT (11:54)
[2021-05-26 12:00] LABS: Glucose Point of Care 302 mg/dl (65-105)
[2021-05-26 16:17] LABS: Glucose Point of Care 269 mg/dl (65-105)
[2021-05-26] MEDS: MONTELUKAST SODIUM 10 MG TABLET PO (19:43)
[2021-05-26 20:12] LABS: Glucose Point of Care 262 mg/dl (65-105)
[2021-05-26 23:29] LABS: Glucose Point of Care 256 mg/dl (65-105)
[2021-05-27] VITALS (55 sets, daily range): BP systolic 76–172; BP diastolic 55–107; PULSE 10–168; RESP 29–30; TEMP 36.2–37.3; O2SAT 88–99
[2021-05-27] MEDS: CISATRACURIUM BESYLATE 200 MG in DEXTROSE 5% 80 ML 7.85 ML IV CONT ×2 (01:30→10:23)
[2021-05-27] MEDS: EPOPROSTENOL SODIUM 0.5 MG VIAL 1 MG INHALATION ×4 (03:48→20:56)
[2021-05-27 04:27] LABS: Alveolar/Arterial O2 Gradient 499.1 mmHg; Base Excess ABG 9.8 mEq/l (+/-2.0); Carboxyhemoglobin 0.3 % THb (0-2.0); Device VENTILATOR; Fractional Inspired Oxygen 90 %; HCO3 ABG 36.8 mEq/l (22.0-26.0); Methemoglobin ABG 0.2 %THb (0-1.5); Modified Allen's Test Pass; Oxygen Saturation ABG 95.7 % (95.0-100.0); Oxyhemoglobin 94.4 % THb (90.0-100.0); PCO2 ABG 59.9 mmHg (35.0-45.0); PO2 ABG 81.2 mmHg (80.0-100.0); Reduced Hemoglobin 5.1 %THb (0-5.0); Site Drawn LEFT RADIAL; Total Hemoglobin 13.5 g/dL (12.0-18.0); pH ABG 7.406 (7.350-7.450)
[2021-05-27 04:28] LABS: Arterial Blood Gas PEEP 15 cmH2O; Arterial Blood Gas Tidal Volume 350 ml; Arterial Blood Gas Vent Mode CMV; Arterial Blood Gas Ventilator rate 30 /MIN
[2021-05-27] MEDS: CENTRAL LINE FLUSH 10 ML IV PUSH ×3 (04:49→20:36)
[2021-05-27] MEDS: INSULIN ASPART (*BKC) 100 UNITS/ML SUB-Q ×5 (05:39→20:36)
[2021-05-27] MEDS: LEVOTHYROXINE SODIUM 125 MCG TABLET PO (05:39)
[2021-05-27] MEDS: METOPROLOL TARTRATE INJ 5 MG/5 ML VIAL IV PUSH ×2 (05:40→10:12)
[2021-05-27 06:12] LABS: Glucose Point of Care 264 mg/dl (65-105)
[2021-05-27 06:16] LABS: Basophils Absolute Auto 0.1 K/mm3 (0.0-0.1); Basophils Percent Auto 0.4 % (0.2-1.2); Eosinophils Absolute Auto 0.1 K/mm3 (0-0.3); Eosinophils Percent Auto 0.6 % (0-4.4); Hematocrit 41.8 % (37.0-47.0); Hemoglobin 12.4 g/dL (12.0-15.0); Immature Granulocyte Absolute 0.71 K/mm3 (0.00-0.031); Immature Granulocyte Percent A 3.8 % (0-0.5); Lymphocytes Absolute Auto 0.62 K/mm3 (0.9-3.2); Lymphocytes Percent Auto 3.3 % (18.3-44.2); Mean Corpuscular HGB Conc 29.7 g/dl (32-36); Mean Corpuscular Hemoglobin 28.3 pg (26-34); Mean Corpuscular Volume 95.4 fl (80-100); Mean Platelet Volume 11.9 fl (7.4-10.4); Monocytes Absolute Auto 1.2 K/mm3 (0.1-0.6); Monocytes Percent Auto 6.6 % (2.6-8.5); Neutrophils Absolute Auto 15.8 K/mm3 (1.3-6.7); Neutrophils Percent Auto 85.3 % (45.5-73.1); Platelet Count Result 169 k/mm3 (150-375); Red Blood Count 4.38 M/mm3 (4.2-5.4); Red Cell Distribution Width 14.7 % (11.5-14.5); White Blood Count 18.6 K/mm3 (4.5-10.0)
[2021-05-27 06:34] LABS: Alanine Aminotransferase 67 U/L (4-35); Albumin Level 2.8 g/dL (3.5-5.1); Alkaline Phosphatase 101 U/L (38-126); Anion Gap 2 mmol/L (8-16); Aspartate Amino Transferase 38 U/L (14-36); Bilirubin,Total 0.3 mg/dL (0.2-1.3); Blood Urea Nitrogen 37 mg/dL (7-17); Calcium 8.8 mg/dL (8.4-10.2); Carbon Dioxide 37 mmol/L (22-30); Chloride 99 mmol/L (98-107); Estimated CRCL calculation 107 ml/min; Estimated Glomerular Filt Rate > 60; Glucose 283 mg/dL (65-110); Magnesium 2.3 mg/dL (1.6-2.3); Sodium 138 mmol/L (137-145)
[2021-05-27 07:18] LABS: Large Platelets Present; Platelet Estimate Adequate (Adequate)
[2021-05-27 07:58] LABS: Glucose Point of Care 255 mg/dl (65-105)
[2021-05-27] MEDS: INSULIN GLARGINE (*BKC) 100 UNITS/ML 30 UNITS SUB-Q (08:15)
[2021-05-27] MEDS: PANTOPRAZOLE SODIUM IV 40 MG VIAL IV PUSH (08:16)
[2021-05-27] MEDS: ENOXAPARIN 40 MG/0.4 ML SYRINGE SUB-Q (08:16)
[2021-05-27] MEDS: MINERAL OIL/WHITE PETROLATUM OINTMENT 1 APPLIC EACH EYE ×2 (08:16→20:36)
[2021-05-27] MEDS: INSULIN GLARGINE (*BKC) 100 UNITS/ML 40 UNITS SUB-Q (09:07)
[2021-05-27] MEDS: FUROSEMIDE INJ 40 MG/4 ML VIAL IV PUSH (09:29)
[2021-05-27] MEDS: MIDAZOLAM HCL (*CRX) 2 MG/2 ML VIAL 5 MG IV PUSH (10:12)
[2021-05-27] MEDS: MIDAZOLAM 100MG/NS 100ML(*CRX) 100 MG/100 ML BAG 8 MG IV CONT ×2 (10:24→21:59)
[2021-05-27] MEDS: FENTANYL 2,500MCG/NS250ML(*CRX 2,500 MCG/250 ML BAG 15 MCG IV CONT (10:25)
--- NOTE | 2021-05-27 10:58 | PCFNICU ---
ICU Rounding Note: Pt current nutrition is Glucerna 1.2 at 50 ml/hr over 22 hours Last recorded weight is 108.4 kg, up from 103.7 kg. Bowel Motility:Last BM reported 05/19 Labs Reviewed:BUN 37, Glu 283, Cr 0.6,Alb 2.8 Meds Noted:Fentanyl, Versed, Lovenox, Decadron, vit C, Synthroid, Protonix, Lantus, Novolog, Singulair. Skin:WNL Additional Notes: Patient changed tube feeding formulas over the weekend due to elevated blood sugar levels. Spoke with today regarding tube feeding carb amounts. Tube feeding changed back to Vital AF 1.2 at 60 ml/hr. Free water flush 30 ml q 4 hours. Following daily in ICU rounds. Reassessing every Thursday and Thursday.
--- NOTE | 2021-05-27 11:14 | WPDINTPN ---
Progress Note: A&P Assessment and Plan (1) Acute respiratory failure with hypoxia: Code(s): J96.01 - Acute respiratory failure with hypoxia Status: Acute Assessment and Plan: Acute Respiratory failure secondary to COVID-[address] - 05/14 IMPRESSION: 1. Moderate amount of bilateral airspace disease, appearance consistent with acute to early subacute COVID pneumonia. 2. Small lingular nodule and small T7 sclerotic focus unchanged; one-year follow-up chest CT as previously recommended. 3. No pulmonary emboli. CXR Diffuse lung disease with worsening in left mid and lower lung zones, consistent with COVID-19 pneumonia versus acute respiratory distress syndrome (ARDS). Intubated 05/22 no significant improvement in hypoxia post intubation Most recent ABG reviewed currently on tidal volume of 350, respiratory rate of 30, peep of 15 and FiO2 of 90% Continue daily prone ventilation for 18 hours as tolerated Permissive hypercapnia Continue inhaled Flolan which was started on 05/24 Lasix IV x1 again today (2) Pneumonia due to COVID-19 virus: Code(s): U07.1 - COVID-19; J12.82 - Pneumonia due to coronavirus disease 2019 Status: Acute Assessment and Plan: Patient tested positive for COVID-19 on 05/10 and received monoclonal antibody Imdevimab 600 mg and casirivimab 600 mg on 05/14 after exposure and positive test as an outpatient. -admitted on 05/15 and tested positive again at the hospital - Started on remdesivir 05/15 and completed on 05/24 - started on dexamethasone on 05/14. - completed a five-day course of azithromycin and ceftriaxone for possible CAP on 05/19. - She was given Convalescent Plasma 05/15 - influenza swab negative. - Option of Actemra and Barcitinib were discussed with patient by Dr. Butterfield with pulmonary earlier in the course of hospitalization considering there is no data of either drug use after monoclonal antibody infusion. Patient was given option/choice of taking these drugs and patient refused at that time. - inflammatory markers are improving (3) Hypothyroid: Qualifiers: Hypothyroidism type: unspecified Qualified Code(s): E03.9 - Hypothyroidism, unspecified Code(s): E03.9 - Hypothyroidism, unspecified Status: Acute Assessment and Plan: Continue levothyroxine (4) Hyperglycemia: Code(s): R73.9 - Hyperglycemia, unspecified Status: Acute Assessment and Plan: increase Lantus to 40 change tube feeds to Glucerna (5) Tachycardia: Code(s): R00.0 - Tachycardia, unspecified Status: Acute Assessment and Plan: patient has had couple of episodes of sinus tachycardia with hypertension which could be due to under sedation with paralysis. resolved with IV Versed and Lopressor push. I will add IV propofol to supplement sedation continue to monitor and treat as needed (6) Elevated liver enzymes: Code(s): R74.8 - Abnormal levels of other serum enzymes Status: Acute Assessment and Plan: AST and ALT are mildly elevated normal bilirubin and alkaline phosphatase monitor at this time (7) Congestive heart failure: Code(s): I50.9 - Heart failure, unspecified Status: Acute Assessment and Plan: Echo 05/18 Summary 1. Left ventricular chamber dimension is normal. 2. Left ventricular systolic function is mildly reduced, estimated at 45-50%. 3. Left atrial chamber dimension is mildly enlarged. 4. There is mild mitral valve regurgitation. continue Lasix Additional Plan DVT prophylaxis -Lovenox Stress ulcer prophylaxis -IV PPI Nutrition -continue Tube Feeds Code Status - Full Code 05/23 I called and spoke to Dr. Scott at [facility] for for this patient for consideration for ECMO. I provided all the information and discussed case. Tyler discussed the case with ECMO team at [facility] and called me back. Unfortunately they do not have any bed/ECMO circuit available at
[2021-05-27] MEDS: PROPOFOL IV EMULSION 100 ML 19.51 MG IV CONT (11:15)
[2021-05-27 12:27] LABS: Glucose Point of Care 290 mg/dl (65-105)
[2021-05-27] MEDS: PROPOFOL IV EMULSION 100 ML 13.01 MG IV CONT ×2 (15:00→22:55)
[2021-05-27 16:48] LABS: Glucose Point of Care 312 mg/dl (65-105)
--- NOTE | 2021-05-27 17:12 | PM.IMPN ---
Progress Note: A&P Assessment and Plan (1) Acute respiratory failure with hypoxia: Code(s): J96.01 - Acute respiratory failure with hypoxia Status: Acute Assessment and Plan: Patient presents with shortness of breath. She was diagnosed with COVID early May. CTA chest 05/14 showing no PE but moderate amount of bilateral airspace disease. She became more hypoxic and she was moved to IMU. Her condition worsened and she became BiPAP dependent. Initially she did well with this but slowly, her SpO2 began to drop so she was moved to the ICU on 05/21. She was very resistant to being intubated but condition worsened to the point that she was intubated 05/22. She is now intubated, sedated and paralyzed for vent synchrony. Flolan started. Continue supportive care. Prone patient as tolerated. Wean vent as tolerated. ECMO being considered. (2) Pneumonia due to COVID-19 virus: Code(s): U07.1 - COVID-19; J12.82 - Pneumonia due to coronavirus disease 2019 Status: Acute Assessment and Plan: Patient has been COVID positive in the past (05/02/20). She became symptomatic of 05/09/21 and tested positive again for COVID on 05/10/21 ( positive a few days prior). She is unvaccinated. She received REGEN-COV (casirivimab and imdevimab) monoclonal Ab on 05/14 but presented to the ED later that night with complaints of SOB. Her confirmatory PCR test was positive here on 05/15. She was started on Decadron and Remdesivir. She was given Convalescent Plasma 05/15. CTA Chest showing no PE but moderate amount of airspace disease. Mild leukopenia noted related to COVID but resolved. Hypoxia worsened to the point she needed to be intubated 05/22/21. Continue Decadron; she completes Remdesivir. Remains off antibiotics but doubt bacterial PNA. As above. Appreciate Pulmonary and plugger worker input. (3) Tachycardia: Code(s): R00.0 - Tachycardia, unspecified Status: Acute Assessment and Plan: Patient with atrial tachycardia and episodes of SVT. Treated with IV metoprolol with benefit. Continue telemetry. Continue to monitor (4) Pneumomediastinum: Code(s): J98.2 - Interstitial emphysema Status: Acute Assessment and Plan: There was noted to be gas in the neck soft tissues by CXR 05/24. X-ray 05/25 showed that this was no longer visualized. Chest x-ray today also shows but this has resolved. Continue to follow. Wean PEEP as tolerated. (5) LV dysfunction: Code(s): I51.9 - Heart disease, unspecified Status: Acute Assessment and Plan: Troponin negative x2 (>24hrs apart) on admission. EKG reviewed showing borderline ST changes in the high lateral leads and voltage criteria for LVH. Echo 05/18 showing EF 45-50% and mild LAE but LV chamber normal. Mild valvular disease noted. Etiology of the mild LV dysfunction unclear. This could be acute related to COVID or possibly chronic and unrelated. She does have hypertension but no increased LV wall thickness to suggest LVH. Patient will need repeat echocardiogram after discharge. Treat with Lasix intermittently as needed. (6) Essential (primary) hypertension: Code(s): I10 - Essential (primary) hypertension Status: Acute Assessment and Plan: Patient's blood pressure was reviewed on 05/27 Blood pressure remains soft at times probably related to the sedation. Losartan remains on hold. Follow. (7) ROBERTO (obstructive sleep apnea): Code(s): G47.33 - Obstructive sleep apnea (adult) (pediatric) Status: Acute Assessment and Plan: As above. (8) Fatty liver disease, nonalcoholic: Onset Date: 04/02/21 Code(s): K76.0 - Fatty (change of) liver, not elsewhere classified Status: Acute Assessment and Plan: Hepatic steatosis again noted by CT scan. LFTs noted. Follow (9) Hypothyroid: Qualifiers: Hypothyroidism type: unspecified Qualified Code(s): E03.9 -
[2021-05-27] MEDS: MONTELUKAST SODIUM 10 MG TABLET PO (20:36)
[2021-05-27 20:53] LABS: Glucose Point of Care 275 mg/dl (65-105)
[2021-05-27] MEDS: CISATRACURIUM BESYLATE 200 MG in DEXTROSE 5% 80 ML 9.41 ML IV CONT (21:21)
[2021-05-28] VITALS (54 sets, daily range): BP systolic 95–144; BP diastolic 53–80; PULSE 68–104; RESP 28–30; TEMP 36.1–37; O2SAT 92–100
[2021-05-28] MEDS: INSULIN ASPART (*BKC) 100 UNITS/ML SUB-Q ×5 (00:26→19:47)
[2021-05-28 00:35] LABS: Glucose Point of Care 271 mg/dl (65-105)
[2021-05-28] MEDS: FENTANYL 2,500MCG/NS250ML(*CRX 2,500 MCG/250 ML BAG 15 MCG IV CONT ×2 (02:16→16:31)
[2021-05-28] MEDS: EPOPROSTENOL SODIUM 0.5 MG VIAL 1 MG INHALATION ×4 (02:25→19:29)
[2021-05-28 05:37] LABS: Alveolar/Arterial O2 Gradient 572.7 mmHg; Base Excess ABG 8.2 mEq/l (+/-2.0); Carboxyhemoglobin 0.3 % THb (0-2.0); Fractional Inspired Oxygen 100 %; HCO3 ABG 35.5 mEq/l (22.0-26.0); Methemoglobin ABG 0.2 %THb (0-1.5); Oxygen Content ABG 17.8 %vol (16.0-22.0); Oxygen Saturation ABG 95.1 % (95.0-100.0); Oxyhemoglobin 93.7 % THb (90.0-100.0); PO2 ABG 78.7 mmHg (80.0-100.0); PO2 FiO2 Ratio Arterial Blood 0.79 %; Reduced Hemoglobin 5.8 %THb (0-5.0); Total Hemoglobin 13.5 g/dL (12.0-18.0); pH ABG 7.378 (7.350-7.450)
[2021-05-28 05:48] LABS: Device VENTILATOR; Modified Allen's Test Unable to perform; PCO2 ABG 61.6 mmHg (35.0-45.0); Site Drawn RIGHT RADIAL
[2021-05-28 05:49] LABS: Arterial Blood Gas PEEP 15 cmH2O; Arterial Blood Gas Tidal Volume 350 ml; Arterial Blood Gas Vent Mode CMV; Arterial Blood Gas Ventilator rate 30 /MIN
[2021-05-28 05:51] LABS: Basophils Absolute Auto 0.1 K/mm3 (0.0-0.1); Basophils Percent Auto 0.4 % (0.2-1.2); Eosinophils Absolute Auto 0.1 K/mm3 (0-0.3); Eosinophils Percent Auto 0.6 % (0-4.4); Hematocrit 40.1 % (37.0-47.0); Hemoglobin 12.1 g/dL (12.0-15.0); Immature Granulocyte Percent A 6.1 % (0-0.5); Lymphocytes Absolute Auto 0.58 K/mm3 (0.9-3.2); Lymphocytes Percent Auto 2.9 % (18.3-44.2); Mean Corpuscular HGB Conc 30.2 g/dl (32-36); Mean Corpuscular Hemoglobin 28.7 pg (26-34); Mean Corpuscular Volume 95.2 fl (80-100); Monocytes Absolute Auto 1.1 K/mm3 (0.1-0.6); Monocytes Percent Auto 5.5 % (2.6-8.5); Neutrophils Absolute Auto 16.8 K/mm3 (1.3-6.7); Neutrophils Percent Auto 84.5 % (45.5-73.1); Platelet Count Result 179 k/mm3 (150-375); Red Blood Count 4.21 M/mm3 (4.2-5.4); Red Cell Distribution Width 14.6 % (11.5-14.5); White Blood Count 19.8 K/mm3 (4.5-10.0)
[2021-05-28] MEDS: PROPOFOL IV EMULSION 100 ML 13.01 MG IV CONT ×4 (05:56→22:54)
[2021-05-28] MEDS: CENTRAL LINE FLUSH 10 ML IV PUSH ×3 (05:57→19:48)
[2021-05-28] MEDS: LEVOTHYROXINE SODIUM 125 MCG TABLET PO (05:58)
[2021-05-28 06:10] LABS: Alanine Aminotransferase 53 U/L (4-35); Albumin Level 2.9 g/dL (3.5-5.1); Alkaline Phosphatase 84 U/L (38-126); Anion Gap 4 mmol/L (8-16); Aspartate Amino Transferase 27 U/L (14-36); Bilirubin,Total 0.4 mg/dL (0.2-1.3); Blood Urea Nitrogen 44 mg/dL (7-17); CRP 4.1 mg/dL (<1.0); Calcium 8.5 mg/dL (8.4-10.2); Carbon Dioxide 38 mmol/L (22-30); Chloride 98 mmol/L (98-107); Estimated CRCL calculation 127 ml/min; Estimated Glomerular Filt Rate > 60; Glucose 322 mg/dL (65-110); Lactate Dehydrogenase 824 U/L (313-618); Magnesium 2.3 mg/dL (1.6-2.3); Potassium 5.2 mmol/L (3.4-5.0); Sodium 140 mmol/L (137-145); Triglycerides 302 mg/dL (<150)
[2021-05-28] MEDS: CISATRACURIUM BESYLATE 200 MG in DEXTROSE 5% 80 ML 9.41 ML IV CONT ×2 (07:14→16:29)
[2021-05-28] MEDS: PANTOPRAZOLE SODIUM IV 40 MG VIAL IV PUSH (07:15)
[2021-05-28] MEDS: MINERAL OIL/WHITE PETROLATUM OINTMENT 1 APPLIC EACH EYE ×2 (07:15→19:48)
[2021-05-28] MEDS: ENOXAPARIN 40 MG/0.4 ML SYRINGE SUB-Q (07:16)
[2021-05-28] MEDS: INSULIN GLARGINE (*BKC) 100 UNITS/ML 40 UNITS SUB-Q (07:53)
[2021-05-28 08:18] LABS: Glucose Point of Care 271 mg/dl (65-105)
[2021-05-28] MEDS: FUROSEMIDE INJ 40 MG/4 ML VIAL IV PUSH ×2 (08:38→16:29)
[2021-05-28] MEDS: SODIUM POLYSTYRENE SULFONONATE 15 GM/60 ML BTL 30 GM PO (08:47)
[2021-05-28] MEDS: INSULIN GLARGINE (*BKC) 100 UNITS/ML 10 UNITS SUB-Q (08:47)
[2021-05-28] MEDS: MIDAZOLAM 100MG/NS 100ML(*CRX) 100 MG/100 ML BAG 8 MG IV CONT ×2 (09:41→21:51)
--- NOTE | 2021-05-28 10:47 | WPDINTPN ---
Progress Note: A&P Assessment and Plan (1) Acute respiratory failure with hypoxia: Code(s): J96.01 - Acute respiratory failure with hypoxia Status: Acute Assessment and Plan: Acute Respiratory failure secondary to COVID-[address] - 05/14 IMPRESSION: 1. Moderate amount of bilateral airspace disease, appearance consistent with acute to early subacute COVID pneumonia. 2. Small lingular nodule and small T7 sclerotic focus unchanged; one-year follow-up chest CT as previously recommended. 3. No pulmonary emboli. CXR Diffuse lung disease with worsening in left mid and lower lung zones, consistent with COVID-19 pneumonia versus acute respiratory distress syndrome (ARDS). Intubated 05/22 no significant improvement in hypoxia post intubation Most recent ABG reviewed currently on tidal volume of 350, respiratory rate of 30, peep of 15 and FiO2 of 100% Patient already on high PEEP and FiO2 and saturation 90-91%. She would likely not tolerate supine position. Continue prone ventilation at this time Increase PEEP to 18 Will give Lasix IV twice today Permissive hypercapnia Continue inhaled Flolan which was started on 05/24 (2) Pneumonia due to COVID-19 virus: Code(s): U07.1 - COVID-19; J12.82 - Pneumonia due to coronavirus disease 2018 Status: Acute Assessment and Plan: Patient tested positive for COVID-19 on 05/10 and received monoclonal antibody Imdevimab 600 mg and casirivimab 600 mg on 05/14 after exposure and positive test as an outpatient. -admitted on 05/15 and tested positive again at the hospital - Started on remdesivir 05/15 and completed on 05/24 - started on dexamethasone on 05/14. - completed a five-day course of azithromycin and ceftriaxone for possible CAP on 05/19. - She was given Convalescent Plasma 05/15 - influenza swab negative. - Option of Actemra and Barcitinib were discussed with patient by Dr. Butterfield with pulmonary earlier in the course of hospitalization considering there is no data of either drug use after monoclonal antibody infusion. Patient was given option/choice of taking these drugs and patient refused at that time. - inflammatory markers are improving (3) Hypothyroid: Qualifiers: Hypothyroidism type: unspecified Qualified Code(s): E03.9 - Hypothyroidism, unspecified Code(s): E03.9 - Hypothyroidism, unspecified Status: Acute Assessment and Plan: Continue levothyroxine (4) Hyperglycemia: Code(s): R73.9 - Hyperglycemia, unspecified Status: Acute Assessment and Plan: increase Lantus to 50 Continue tube feeds at goal (5) Tachycardia: Code(s): R00.0 - Tachycardia, unspecified Status: Acute Assessment and Plan: Improved after adding propofol for sedation (6) Elevated liver enzymes: Code(s): R74.8 - Abnormal levels of other serum enzymes Status: Acute Assessment and Plan: AST and ALT are mildly elevated normal bilirubin and alkaline phosphatase monitor at this time (7) Congestive heart failure: Code(s): I50.9 - Heart failure, unspecified Status: Acute Assessment and Plan: Echo 05/18 Summary 1. Left ventricular chamber dimension is normal. 2. Left ventricular systolic function is mildly reduced, estimated at 45-50%. 3. Left atrial chamber dimension is mildly enlarged. 4. There is mild mitral valve regurgitation. continue Lasix Additional Plan DVT prophylaxis -Lovenox Stress ulcer prophylaxis -IV PPI Nutrition -continue Tube Feeds Code Status - Full Code 05/23 I called and spoke to Dr. Scott at [facility] for for this patient for consideration for ECMO. I provided all the information and discussed case. Tyler discussed the case with ECMO team at [facility] and called me back. Unfortunately they do not have any bed/ECMO circuit available at this time and nor they have any room in their wait list. Spoke to Dr. Don with Critical Care at [facility]
--- NOTE | 2021-05-28 11:23 | PCNFU ---
Nutrition Follow-Up Complete: Inadequate Oral intake as related to COVID pneumonia as evidenced by poor po intake. Goal: Meet estimated nutritional needs Patient is progressing towards goal. We will continue current goal. Pt current nutrition is Vital AF 1.2 at 50 ml/hr over 22 hours. Last recorded weight is 108.4 kg, up from 103.7 kg on admit. Bowel Motility:+BM reported 05/28 Labs Reviewed:Glu 322, BUN 44, TG 302, K 5.2 Meds Noted:Nimbex, Versed, Fentanyl, Protonix, Singulair, Lopressor, Propofol 13.01 ml/hr-343 kcals. Skin: WNL Additional Notes: Patient remains on mechanical vent. Vital AF 1.2 at 50 ml/hr decreased from 60 ml/hr due to propofol increase. Current tube feeding plus propofol is providing 1663 kcals/83 gms protein/892 ml water. Free water flush 50 ml q 4 hours. Patient is currently proned. Monitoring: ICU rounds, reassessing every Thursday and Thursday.
[2021-05-28 11:43] LABS: Glucose Point of Care 327 mg/dl (65-105)
[2021-05-28 16:43] LABS: Glucose Point of Care 343 mg/dl (65-105)
--- NOTE | 2021-05-28 17:16 | PM.IMPN ---
Progress Note: A&P Assessment and Plan (1) Acute respiratory failure with hypoxia: Code(s): J96.01 - Acute respiratory failure with hypoxia Status: Acute Assessment and Plan: Patient presents with shortness of breath. She was diagnosed with COVID early May. CTA chest 05/14 showing no PE but moderate amount of bilateral airspace disease. She became more hypoxic and she was moved to IMU. Her condition worsened and she became BiPAP dependent. Initially she did well with this but slowly, her SpO2 began to drop so she was moved to the ICU on 05/21. She was very resistant to being intubated but condition worsened to the point that she was intubated 05/22. She is now intubated, sedated and paralyzed for vent synchrony. Remains on Flolan. Despite maximal therapy, she continues to deteriorate. Continue supportive care. Prone patient as tolerated. Wean vent as tolerated. No beds available to transfer patient for ECMO (2) Pneumonia due to COVID-19 virus: Code(s): U07.1 - COVID-19; J12.82 - Pneumonia due to coronavirus disease 2019 Status: Acute Assessment and Plan: Patient has been COVID positive in the past (05/02/20). She became symptomatic of 05/09/21 and tested positive again for COVID on 05/10/21 ( positive a few days prior). She is unvaccinated. She received REGEN-COV (casirivimab and imdevimab) monoclonal Ab on 05/14 but presented to the ED later that night with complaints of SOB. Her confirmatory PCR test was positive here on 05/15. She was started on Decadron and Remdesivir. She was given Convalescent Plasma 05/15. CTA Chest showing no PE but moderate amount of airspace disease. Mild leukopenia noted related to COVID but resolved. Hypoxia worsened to the point she needed to be intubated 05/22/21. She completed Remdesivir and Decadron. Another course of Decadron started 05/25. Remains off antibiotics but doubt bacterial PNA. As above. Appreciate Pulmonary and enterprise integration architect input. (3) Tachycardia: Code(s): R00.0 - Tachycardia, unspecified Status: Acute Assessment and Plan: Patient with atrial tachycardia and episodes of SVT the other day. Treated with IV metoprolol with benefit. Tele showing that she is maintaining NSR. Continue telemetry. Continue to monitor. (4) Pneumomediastinum: Code(s): J98.2 - Interstitial emphysema Status: Acute Assessment and Plan: There was noted to be gas in the neck soft tissues by CXR 05/24. X-ray 05/25 showed that this was no longer visualized. Chest x-ray today also shows but this has resolved. Continue to follow. Unfortunately, she is requiring more PEEP. Wean PEEP as tolerated. (5) LV dysfunction: Code(s): I51.9 - Heart disease, unspecified Status: Acute Assessment and Plan: Troponin negative x2 (>24hrs apart) on admission. EKG reviewed showing borderline ST changes in the high lateral leads and voltage criteria for LVH. Echo 05/18 showing EF 45-50% and mild LAE but LV chamber normal. Mild valvular disease noted. Etiology of the mild LV dysfunction unclear. This could be acute related to COVID or possibly chronic and unrelated. She does have hypertension but no increased LV wall thickness to suggest LVH. Patient will need repeat echocardiogram after discharge. Continue to treat with Lasix intermittently as needed. (6) Hyperglycemia: Code(s): R73.9 - Hyperglycemia, unspecified Status: Acute Assessment and Plan: The patient's blood glucose was reviewed on 05/28 Glucose remains poorly controlled related to the steroids. Continue AccuCheks covering with sliding scale. Hypoglycemia protocol available as needed. Continue Lantus. Check A1c (7) Essential (primary) hypertension: Code(s): I10 - Essential (primary) hypertension Status: Acute Assessment and Plan: Patient's blood pressure was reviewed on 05/28 Blood pressure remains soft at times probably related to
[2021-05-28] MEDS: MONTELUKAST SODIUM 10 MG TABLET PO (19:48)
[2021-05-28 20:09] LABS: Glucose Point of Care 328 mg/dl (65-105)
[2021-05-29] VITALS (39 sets, daily range): BP systolic 96–180; BP diastolic 57–87; PULSE 82–138; RESP 30; TEMP 36.4–38.1; O2SAT 91–97; BMI 39.7
[2021-05-29] MEDS: INSULIN ASPART (*BKC) 100 UNITS/ML SUB-Q ×5 (00:05→20:30)
[2021-05-29] MEDS: EPOPROSTENOL SODIUM 0.5 MG VIAL 1 MG INHALATION ×4 (01:17→19:48)
[2021-05-29 04:21] LABS: Alveolar/Arterial O2 Gradient 566.8 mmHg; Base Excess ABG 12.8 mEq/l (+/-2.0); Carboxyhemoglobin 0.3 % THb (0-2.0); Fractional Inspired Oxygen 100 %; HCO3 ABG 40.1 mEq/l (22.0-26.0); Methemoglobin ABG 0.2 %THb (0-1.5); Oxygen Content ABG 15.9 %vol (16.0-22.0); Oxygen Saturation ABG 95.5 % (95.0-100.0); Oxyhemoglobin 93.6 % THb (90.0-100.0); PO2 ABG 80.3 mmHg (80.0-100.0); Reduced Hemoglobin 5.9 %THb (0-5.0); pH ABG 7.402 (7.350-7.450)
[2021-05-29 04:26] LABS: PCO2 ABG 65.9 mmHg (35.0-45.0)
[2021-05-29 04:27] LABS: Arterial Blood Gas Vent Mode CMV; Arterial Blood Gas Ventilator rate 30 /MIN; Device VENTILATOR; Modified Allen's Test Pass; Site Drawn RIGHT RADIAL
[2021-05-29 04:28] LABS: Arterial Blood Gas PEEP 18 cmH2O; Arterial Blood Gas Tidal Volume 350 ml
[2021-05-29] MEDS: PROPOFOL IV EMULSION 100 ML 13.01 MG IV CONT ×2 (06:15→22:41)
[2021-05-29] MEDS: CENTRAL LINE FLUSH 10 ML IV PUSH ×3 (07:49→20:31)
[2021-05-29] MEDS: LEVOTHYROXINE SODIUM 125 MCG TABLET PO (07:49)
[2021-05-29 07:53] LABS: Glucose Point of Care 225 mg/dl (65-105)
[2021-05-29 08:37] LABS: Basophils Absolute Auto 0.1 K/mm3 (0.0-0.1); Basophils Percent Auto 0.5 % (0.2-1.2); Eosinophils Absolute Auto 0.2 K/mm3 (0-0.3); Eosinophils Percent Auto 0.7 % (0-4.4); Hematocrit 41.6 % (37.0-47.0); Hemoglobin 12.2 g/dL (12.0-15.0); Immature Granulocyte Absolute 1.17 K/mm3 (0.00-0.031); Lymphocytes Absolute Auto 0.75 K/mm3 (0.9-3.2); Lymphocytes Percent Auto 3.2 % (18.3-44.2); Mean Corpuscular HGB Conc 29.3 g/dl (32-36); Mean Corpuscular Hemoglobin 28.2 pg (26-34); Mean Corpuscular Volume 96.1 fl (80-100); Mean Platelet Volume 12.6 fl (7.4-10.4); Monocytes Absolute Auto 1.5 K/mm3 (0.1-0.6); Monocytes Percent Auto 6.4 % (2.6-8.5); Neutrophils Absolute Auto 19.7 K/mm3 (1.3-6.7); Neutrophils Percent Auto 84.2 % (45.5-73.1); Platelet Count Result 253 k/mm3 (150-375); Red Blood Count 4.33 M/mm3 (4.2-5.4); Red Cell Distribution Width 14.6 % (11.5-14.5); White Blood Count 23.3 K/mm3 (4.5-10.0)
[2021-05-29 08:53] LABS: Alanine Aminotransferase 50 U/L (4-35); Alkaline Phosphatase 86 U/L (38-126); Anion Gap 4 mmol/L (8-16); Aspartate Amino Transferase 37 U/L (14-36); Bilirubin,Total 0.5 mg/dL (0.2-1.3); Blood Urea Nitrogen 47 mg/dL (7-17); Calcium 8.1 mg/dL (8.4-10.2); Carbon Dioxide 39 mmol/L (22-30); Chloride 95 mmol/L (98-107); Estimated CRCL calculation 108 ml/min; Estimated Glomerular Filt Rate > 60; Glucose 250 mg/dL (65-110); Magnesium 2.3 mg/dL (1.6-2.3); Potassium 4.9 mmol/L (3.4-5.0); Sodium 138 mmol/L (137-145)
[2021-05-29] MEDS: ENOXAPARIN 40 MG/0.4 ML SYRINGE SUB-Q (09:06)
[2021-05-29] MEDS: PANTOPRAZOLE SODIUM IV 40 MG VIAL IV PUSH (09:07)
[2021-05-29] MEDS: INSULIN GLARGINE (*BKC) 100 UNITS/ML 50 UNITS SUB-Q (09:07)
[2021-05-29] MEDS: MINERAL OIL/WHITE PETROLATUM OINTMENT 1 APPLIC EACH EYE ×2 (09:07→20:31)
[2021-05-29 09:40] LABS: Hemoglobin A1C 7.4 % (<5.7)
[2021-05-29] MEDS: MIDAZOLAM 100MG/NS 100ML(*CRX) 100 MG/100 ML BAG 8 MG IV CONT ×2 (09:58→22:43)
[2021-05-29] MEDS: FENTANYL 2,500MCG/NS250ML(*CRX 2,500 MCG/250 ML BAG 15 MCG IV CONT (09:59)
[2021-05-29] MEDS: FUROSEMIDE INJ 40 MG/4 ML VIAL IV PUSH (10:35)
[2021-05-29] MEDS: METOPROLOL TARTRATE INJ 5 MG/5 ML VIAL IV PUSH (10:39)
[2021-05-29] MEDS: PROPOFOL IV EMULSION 100 ML 16.26 MG IV CONT ×2 (10:48→16:54)
[2021-05-29 11:27] LABS: Glucose Point of Care 294 mg/dl (65-105)
--- NOTE | 2021-05-29 11:42 | PCFNICU ---
ICU Rounding Note: Pt current nutrition is Vital AF 1.2 at 50 ml/hr over 22 hours. Last recorded weight is 108.4 kg, up from 103.7 kg on admit. Bowel Motility:+BM reported 05/29 Labs Reviewed:Glu 250 , Cr 0.6,BUN 47, Alb 3.0 Meds Noted:Versed, Fentanyl, Nimbex, Decadron, Synthroid, Propofol 16.26 ml/cv=448 kcals, Lovenox, Protonix, Lantus, Novolog, Flolan, Lopressor. Skin: WNL Additional Notes: Patient remains on mechanical vent since 05/22. Tube feedings of Vital AF 1.2 at 50 ml/hr and tolerating. Propofol up to 25 mics providing additional 429 kcals. Free water flush 30 ml q 4 hours. Proned at this time. Will continue to monitor propofol titrations for tube feeding rate changes. Following daily in ICU round and reassessing every Thursday and Thursday.
[2021-05-29 12:07] LABS: Glucose Point of Care 249 mg/dl (65-105)
[2021-05-29] MEDS: CISATRACURIUM BESYLATE 200 MG in DEXTROSE 5% 80 ML 12.55 ML IV CONT (12:40)
--- NOTE | 2021-05-29 13:03 | WPDINTPN ---
Progress Note: A&P Assessment and Plan (1) Acute respiratory failure with hypoxia: Code(s): J96.01 - Acute respiratory failure with hypoxia Status: Acute Assessment and Plan: Acute Respiratory failure secondary to COVID-19 pneumonia Intubated 05/22 Chest x-ray this morning: : Diffuse bilateral airspace disease is unchanged, compatible with pneumonia. ABGs reviewed, patient on peep of 18 and FiO2 of 100%. Will start weaning FiO2 to maintain O2 sats greater than 92% Continue to place patient in prone position daily 16-18 hours. Low tidal volume strategy to prevent volume trauma, will allow permissive hypercapnia Patient diuresed well yesterday with Lasix, will repeat Lasix again today Continue inhaled Flolan which was started on 05/24 CT - 05/14 IMPRESSION: 1. Moderate amount of bilateral airspace disease, appearance consistent with acute to early subacute COVID pneumonia. 2. Small lingular nodule and small T7 sclerotic focus unchanged; one-year follow-up chest CT as previously recommended. 3. No pulmonary emboli. (2) Pneumonia due to COVID-19 virus: Code(s): U07.1 - COVID-19; J12.82 - Pneumonia due to coronavirus disease 2018 Status: Acute Assessment and Plan: Patient tested positive for COVID-19 on 05/10 and received monoclonal antibody Imdevimab 600 mg and casirivimab 600 mg on 05/14 after exposure and positive test as an outpatient. Patient is unvaccinated -admitted on 05/15 and tested positive again at the hospital - Started on remdesivir 05/15 and completed on 05/24 -for 10 days - started on dexamethasone on 05/14. - completed a five-day course of azithromycin and ceftriaxone for possible CAP on 05/19. - She was given Convalescent Plasma 05/15 - influenza swab negative. - Option of Actemra and Barcitinib were discussed with patient by Dr. Butterfield with pulmonary earlier in the course of hospitalization considering there is no data of either drug use after monoclonal antibody infusion. Patient was given option/choice of taking these drugs and patient refused at that time. - inflammatory markers are improving (3) Hypothyroid: Qualifiers: Hypothyroidism type: unspecified Qualified Code(s): E03.9 - Hypothyroidism, unspecified Code(s): E03.9 - Hypothyroidism, unspecified Status: Acute Assessment and Plan: Continue levothyroxine (4) Hyperglycemia: Code(s): R73.9 - Hyperglycemia, unspecified Status: Acute Assessment and Plan: Will increase Lantus and switch to Q12H dosing -continue Accu-Cheks and sliding scale insulin Continue tube feeds at goal (5) Tachycardia: Code(s): R00.0 - Tachycardia, unspecified Status: Acute Assessment and Plan: Improved after adding propofol for sedation (6) Elevated liver enzymes: Code(s): R74.8 - Abnormal levels of other serum enzymes Status: Acute Assessment and Plan: AST and ALT are mildly elevated normal bilirubin and alkaline phosphatase monitor at this time (7) Congestive heart failure: Code(s): I50.9 - Heart failure, unspecified Status: Acute Assessment and Plan: Echo 05/18 Summary 1. Left ventricular chamber dimension is normal. 2. Left ventricular systolic function is mildly reduced, estimated at 45-50%. 3. Left atrial chamber dimension is mildly enlarged. 4. There is mild mitral valve regurgitation. continue Lasix Additional Plan DVT prophylaxis -Lovenox Stress ulcer prophylaxis -IV PPI Nutrition -continue Tube Feeds Code Status - Full Code 05/29/2021: [facility] called and stated that they were going to be removing her from on their list for ECMO as she does not meet the criteria anymore as she has been intubated for 7 days. 05/[address] Scott at [facility] for for this patient for consideration for ECMO. I provided all the information and discussed case. Tyler discussed the case with EC
[2021-05-29 16:17] LABS: Glucose Point of Care 293 mg/dl (65-105)
[2021-05-29] MEDS: INSULIN GLARGINE (*BKC) 100 UNITS/ML 20 UNITS SUB-Q (20:30)
[2021-05-29] MEDS: MONTELUKAST SODIUM 10 MG TABLET PO (20:31)
[2021-05-29 21:01] LABS: Glucose Point of Care 240 mg/dl (65-105)
[2021-05-29] MEDS: CISATRACURIUM BESYLATE 200 MG in DEXTROSE 5% 80 ML 15.69 ML IV CONT (21:16)
[2021-05-30] VITALS (55 sets, daily range): BP systolic 99–163; BP diastolic 53–80; PULSE 96–134; RESP 3–30; TEMP 36.2–37.2; O2SAT 55–98
[2021-05-30] MEDS: INSULIN ASPART (*BKC) 100 UNITS/ML SUB-Q ×6 (00:51→21:07)
[2021-05-30 01:22] LABS: Glucose Point of Care 210 mg/dl (65-105)
[2021-05-30] MEDS: EPOPROSTENOL SODIUM 0.5 MG VIAL 1 MG INHALATION ×4 (02:10→19:27)
[2021-05-30] MEDS: METOPROLOL TARTRATE INJ 5 MG/5 ML VIAL IV PUSH ×2 (02:31→11:20)
[2021-05-30] MEDS: CISATRACURIUM BESYLATE 200 MG in DEXTROSE 5% 80 ML 15.69 ML IV CONT ×4 (02:33→19:09)
[2021-05-30] MEDS: FENTANYL 2,500MCG/NS250ML(*CRX 2,500 MCG/250 ML BAG 15 MCG IV CONT ×2 (03:04→21:12)
[2021-05-30] MEDS: LEVOTHYROXINE SODIUM 125 MCG TABLET PO (04:48)
[2021-05-30 05:11] LABS: Hematocrit 38.9 % (37.0-47.0); Hemoglobin 11.8 g/dL (12.0-15.0); Mean Corpuscular HGB Conc 30.3 g/dl (32-36); Mean Corpuscular Hemoglobin 28.6 pg (26-34); Mean Corpuscular Volume 94.2 fl (80-100); Mean Platelet Volume 11.9 fl (7.4-10.4); Platelet Count Result 218 k/mm3 (150-375); Red Blood Count 4.13 M/mm3 (4.2-5.4); Red Cell Distribution Width 14.6 % (11.5-14.5); White Blood Count 19.9 K/mm3 (4.5-10.0)
[2021-05-30 05:26] LABS: Alveolar/Arterial O2 Gradient 499.5 mmHg; Base Excess ABG 10.7 mEq/l (+/-2.0); Carboxyhemoglobin 0.3 % THb (0-2.0); Fractional Inspired Oxygen 90 %; HCO3 ABG 37.4 mEq/l (22.0-26.0); Methemoglobin ABG 0.3 %THb (0-1.5); Oxygen Content ABG 17.3 %vol (16.0-22.0); Oxygen Saturation ABG 95.8 % (95.0-100.0); Oxyhemoglobin 94.4 % THb (90.0-100.0); PCO2 ABG 59.6 mmHg (35.0-45.0); PO2 ABG 81.1 mmHg (80.0-100.0); pH ABG 7.416 (7.350-7.450)
[2021-05-30 05:27] LABS: Arterial Blood Gas PEEP 18 cmH2O; Arterial Blood Gas Tidal Volume 350 ml; Arterial Blood Gas Vent Mode CMV; Arterial Blood Gas Ventilator rate 30 /MIN; Device VENTILATOR; Modified Allen's Test Unable to perform; Site Drawn LEFT RADIAL
[2021-05-30 05:33] LABS: CRP 8.1 mg/dL (<1.0); Lactate Dehydrogenase 828 U/L (313-618)
[2021-05-30] MEDS: PROPOFOL IV EMULSION 100 ML 13.01 MG IV CONT (06:00)
[2021-05-30 06:05] LABS: Alanine Aminotransferase 59 U/L (4-35); Albumin Level 2.7 g/dL (3.5-5.1); Alkaline Phosphatase 99 U/L (38-126); Aspartate Amino Transferase 39 U/L (14-36); Bilirubin,Total 0.6 mg/dL (0.2-1.3); Blood Urea Nitrogen 42 mg/dL (7-17); Carbon Dioxide > 40 mmol/L (22-30); Chloride 97 mmol/L (98-107); Estimated CRCL calculation 127 ml/min; Estimated Glomerular Filt Rate > 60; Glucose 234 mg/dL (65-110); Magnesium 2.2 mg/dL (1.6-2.3); Phosphorus 3.1 mg/dL (2.5-4.5); Potassium 4.4 mmol/L (3.4-5.0); Sodium 141 mmol/L (137-145)
[2021-05-30 06:07] LABS: Glucose Point of Care 254 mg/dl (65-105)
[2021-05-30 06:31] LABS: Band Neutrophils Percent 2 % (0-6); Lymphocytes Absolute Manual 0.79 K/mm3 (1.1-4.5); Monocytes Absolute Manual 0.59 K/mm3 (0.1-0.90); Monocytes Percent Manual 3 % (3-9); Neutrophils Percent Manual 91 % (46-73); Platelet Estimate Adequate (Adequate); Total Cells Counted 100
[2021-05-30] MEDS: CENTRAL LINE FLUSH 10 ML IV PUSH ×3 (06:33→21:09)
[2021-05-30 07:31] LABS: Glucose Point of Care 232 mg/dl (65-105)
[2021-05-30] MEDS: ENOXAPARIN 40 MG/0.4 ML SYRINGE SUB-Q (07:44)
[2021-05-30] MEDS: MINERAL OIL/WHITE PETROLATUM OINTMENT 1 APPLIC EACH EYE ×2 (07:45→21:08)
[2021-05-30] MEDS: PANTOPRAZOLE SODIUM IV 40 MG VIAL IV PUSH (07:45)
[2021-05-30] MEDS: INSULIN GLARGINE (*BKC) 100 UNITS/ML 60 UNITS SUB-Q (07:46)
[2021-05-30] MEDS: MIDAZOLAM 100MG/NS 100ML(*CRX) 100 MG/100 ML BAG 8 MG IV CONT ×2 (09:09→21:15)
--- NOTE | 2021-05-30 10:37 | PM.CNGS ---
Assessment and Plan Assessment and plan (1) Pneumothorax: Code(s): J93.9 - Pneumothorax, unspecified Status: Acute Assessment and Plan: will place emergent right sided chest tube (2) Acute respiratory failure with hypoxia: Code(s): J96.01 - Acute respiratory failure with hypoxia Status: Acute Assessment and Plan: see above, vent mgmt per intensive care team (3) COVID: Onset Date: 05/09/21 Code(s): U07.1 - COVID-19 Status: Acute Assessment and Plan: cont supportive care History of Present Illness Consult details Consult date: 05/30/21 Reason for consult: chest tube Requesting physician: Kalin Carmichael MD Narrative: The patient is a 55 y/o F c long standing issues secondary to COVID infection. Pt has been progressively worse, and now has been intubated in the ICU for over a week. Pt c acute desaturation this am and noted to have developed a large right pneumothorax. Surgery consulted for stat chest tube as pt sats dropped into the 50's. Pt is intubated, sedated, paralyzed, prone and all history obtained via chart. Review of Systems Review of Systems: ROS unobtainable: Yes unobtainable due to endotracheal tube PMFSH Past Medical History Medical History Abdominal pain in female Abscess of pulp of tooth (~02/12/21) Acute non-recurrent maxillary sinusitis Acute pain of right knee (~09/07/20) Allergic cough KI positive Arthritis Benign paroxysmal positional vertigo due to bilateral vestibular disorder Bilateral ankle pain Candidiasis Chronic pain of right knee (~09/07/20) mild osteoarthritis with joint effusion on x-ray 11/08/2020. severe chondrosis of on MRI on 11/16/2020 Chronic right shoulder pain COVID (05/09/21) Rapid test positive 05/10/2021 COVID-19 (05/02/20) COVID-19 long hauler manifesting chronic dyspnea (05/02/20) Dysfunctional uterine bleeding (~10/08/20) Encounter for screening for other viral diseases Essential (primary) hypertension Fatty liver disease, nonalcoholic (04/02/21) fatty changes of the liver noted on CT of the chest 04/02/2021 GERD (gastroesophageal reflux disease) Headache Hypothyroid Myalgia ROBERTO (obstructive sleep apnea) Pain in both wrists Palpitation Unremarkable 24 hour Holter monitor 09/29/2020 Pharyngitis Right elbow pain Screening for heart disease (09/06/20) CT coronary artery calcium study on 09/06/2020 excellent with calcium score of 0 Seborrhea Solitary pulmonary nodule on lung CT (09/10/20) 6 mm solitary lung nodule noted on coronary artery CT scan 09/10/2020 UTI (urinary tract infection) Surgical History Surgical History H/O left wrist surgery 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 Family History Family History Mother Diabetes mellitus Patient's mother is in good health Family history of glaucoma Family history of hypercholesterolemia Family history of thyroid disease Hypertension Sibling Depression Patient's brother is in good health Family history of Parkinson's disease Family history of tremor Hypertension Father Family history of liver disease, Onset Age: 83 Family history of coronary artery disease Family history of Parkinson's disease Family history of alcoholism Hypertension Asthma Lung cancer Grandparent Family history of Parkinson's disease Family history of rheumatoid arthritis Hypertension Social History Social History Smoking status: Never smoker Alcohol intake: never Substance use: never Gender identity (if verbalized by the patient): Female Spiritual care concerns: No Meds Home Medications and Allergies Home Medications Medication Instructions Recorded Confirmed Type levothyroxine 125 mcg tablet
--- NOTE | 2021-05-30 10:45 | P.OP_ITS ---
Procedure Note - Detailed Date of Procedure 05/30/21 Pre-op Diagnosis COVID Pneumonia, Respiratory Failure, Right Pneumothorax Post-op Diagnosis same Procedure Performed placement of 28 Fr Right chest tube Surgeon Ruth High MD Anesthesia general Indications 55 y/o F c acute respiratory failure secondary to COVID pneumonia c right pneumothorax and acute desaturation Findings large gush of air upon entering thoracic cavity Description of Procedure Patient was in the prone position and right arm was positioned above her head. I then prepped and draped the area. A time-out was done to verify the patient's identity, as well as the procedure being performed. I then made an incision with a 11 blade scalpel at the level the nipple and anterior axillary line. This incision was carried down to the chest cavity. I then used a Amada clamp to gain access into the chest at the 4th intercostal space. Immediately upon getting into the chest a large pedro of air was evacuated. I then placed a 28 [place] chest tube directing this posterior and superior. I then sutured the chest tube in place. Vaseline gauze and sterile dressing were applied and the chest tube was connected to the atrium device on suction. The patient had immediate improvement in her oxygen saturation. She remains in critical condition. Implants right-sided 28 [place] chest tube Estimated Blood Loss 5 Drains No Packing No Pathology none sent Complications No immediate complications Condition critical Disposition ICU
--- NOTE | 2021-05-30 11:16 | WPDINTPN ---
Progress Note: A&P Assessment and Plan (1) Acute respiratory failure with hypoxia: Code(s): J96.01 - Acute respiratory failure with hypoxia Status: Acute Assessment and Plan: Acute Respiratory failure secondary to COVID-19 pneumonia Intubated 05/22 05/30: Patient desaturated in the 50s, decreased breath sounds on the right side, stat chest x-ray showed large pneumothorax, surgery placed a right-sided chest tube with improvement in her O2 sats. Post chest tube CXR shows resolution of pneumothorax ABGs reviewed, patient on peep of 18 and FiO2 of 100%. Will start weaning FiO2 to maintain O2 sats greater than 92% Continue to place patient in prone position daily 16-18 hours. Low tidal volume strategy to prevent volume trauma, will allow permissive hypercapnia Patient diuresed well yesterday with Lasix, will repeat Lasix again today Continue inhaled Flolan which was started on 05/24 CT - 05/14 IMPRESSION: 1. Moderate amount of bilateral airspace disease, appearance consistent with acute to early subacute COVID pneumonia. 2. Small lingular nodule and small T7 sclerotic focus unchanged; one-year follow-up chest CT as previously recommended. 3. No pulmonary emboli. (2) Pneumonia due to COVID-19 virus: Code(s): U07.1 - COVID-19; J12.82 - Pneumonia due to coronavirus disease 2019 Status: Acute Assessment and Plan: Patient tested positive for COVID-19 on 05/10 and received monoclonal antibody Imdevimab 600 mg and casirivimab 600 mg on 05/14 after exposure and positive test as an outpatient. Patient is unvaccinated -admitted on 05/15 and tested positive again at the hospital -completed 10 days of Remdesivir 05/24 -patient on 2nd round of dexamethasone which was started on 05/14. - completed a five-day course of azithromycin and ceftriaxone for possible CAP on 05/19. -received Convalescent Plasma 05/15 - influenza swab negative. - Option of Actemra and Barcitinib were discussed with patient by Dr. Butterfield with pulmonary earlier in the course of hospitalization considering there is no data of either drug use after monoclonal antibody infusion. Patient was given option/choice of taking these drugs and patient refused at that time. - inflammatory markers are improving (3) Hypothyroid: Qualifiers: Hypothyroidism type: unspecified Qualified Code(s): E03.9 - Hypothyroidism, unspecified Code(s): E03.9 - Hypothyroidism, unspecified Status: Acute Assessment and Plan: Continue levothyroxine (4) Hyperglycemia: Code(s): R73.9 - Hyperglycemia, unspecified Status: Acute Assessment and Plan: Will increase Lantus and switch to Q12H dosing -continue Accu-Cheks and sliding scale insulin Continue tube feeds at goal (5) Tachycardia: Code(s): R00.0 - Tachycardia, unspecified Status: Acute Assessment and Plan: Improved after adding propofol for sedation (6) Elevated liver enzymes: Code(s): R74.8 - Abnormal levels of other serum enzymes Status: Acute Assessment and Plan: AST and ALT are mildly elevated normal bilirubin and alkaline phosphatase monitor at this time (7) Congestive heart failure: Code(s): I50.9 - Heart failure, unspecified Status: Acute Assessment and Plan: Echo 05/18 Summary 1. Left ventricular chamber dimension is normal. 2. Left ventricular systolic function is mildly reduced, estimated at 45-50%. 3. Left atrial chamber dimension is mildly enlarged. 4. There is mild mitral valve regurgitation. Additional Plan DVT prophylaxis -Lovenox Stress ulcer prophylaxis -IV PPI Nutrition -continue Tube Feeds Code Status - Full Code 05/30: D/w Dr Mejía, the spouse, updated him with patient's pneumothorax and chest tube placement, also updated him with improvement in her O2 sats post chest tube placement. I answered all his questions, also left my cell number in case he has any othe
[2021-05-30] MEDS: PROPOFOL IV EMULSION 100 ML 19.51 MG IV CONT (11:22)
[2021-05-30] MEDS: polyethylene glycoL 3350 17 GM POWD.PACK PO (11:23)
--- NOTE | 2021-05-30 11:33 | PCFNICU ---
ICU Rounding Note: Pt current nutrition is Vital AF 1.2 at 50 ml/hr over 22 hours. Last recorded weight is 108.4 kg-stable Bowel Motility: Discussed BM charting today, No BM since 05/19-Miralax starting. Labs Reviewed:Glu 234, BUN 42, Cr 0.5,Alb 2.7 Meds Noted:Flolan, Nimbex,Versed, Fentanyl, Propofol 30 rnga=230 kcals. Decadron ,Lopressor, NovoLog, Lantus, Synthroid, Protonix,Singulair. Skin: WNL Additional Notes: Patient remains on mechanical vent and tube feedings of Vital AF 1.2 at 50 ml/hr-tolerating. Free water flush 30 ml q 4 hours. Patient had right chest tube placed today due to right pneumothorax. Patient is proned. Agree with diet orders. Monitoring: Following daily in ICU rounds. will reassess every Thursday and Thursday.
[2021-05-30 12:08] LABS: Glucose Point of Care 295 mg/dl (65-105)
--- NOTE | 2021-05-30 15:18 | PM.IMPN ---
Progress Note: A&P Assessment and Plan (1) Pneumothorax: Code(s): J93.9 - Pneumothorax, unspecified Status: Acute Assessment and Plan: Patient had an abrupt drop in her SpO2 with stat CXR showing large right PTX and pneumomediastinum. GenSurg consulted and Chest Tube placed today. She tolerated this well with improvement in the acute hypoxia. This does not portend a good outcome. CT management per GenSurg (2) Acute respiratory failure with hypoxia: Code(s): J96.01 - Acute respiratory failure with hypoxia Status: Acute Assessment and Plan: Patient presents with shortness of breath. She was diagnosed with COVID early May. CTA chest 05/14 showing no PE but moderate amount of bilateral airspace disease. She became more hypoxic and she was moved to IMU. Her condition worsened and she became BiPAP dependent. Initially she did well but her SpO2 began to worsen to the point that she required intubation 05/22. She is now intubated, sedated and paralyzed for vent synchrony. Despite maximal therapy, she continues to deteriorate. Currently on PEEP 18 and FiO2 100%. Abrupt change related to the PTX as above. Continue supportive care. Prone patient as tolerated. Wean vent as tolerated. Patient no longer a candidate for ECMO. (3) Pneumonia due to COVID-19 virus: Code(s): U07.1 - COVID-19; J12.82 - Pneumonia due to coronavirus disease 2019 Status: Acute Assessment and Plan: Patient has been COVID positive in the past (05/02/20). She became symptomatic of 05/09/21 and tested positive again for COVID on 05/10/21 ( positive a few days prior). She is unvaccinated. She received REGEN-COV (casirivimab and imdevimab) monoclonal Ab on 05/14 but presented to the ED later that night with complaints of SOB. Her confirmatory PCR test was positive here on 05/15. She was started on Decadron and Remdesivir. She was given Convalescent Plasma 05/15. CTA Chest showing no PE but moderate amount of airspace disease. Mild leukopenia noted related to COVID but resolved. Hypoxia worsened to the point she needed to be intubated 05/22/21. She completed Remdesivir and Decadron. Another course of Decadron started 05/25. Remains off antibiotics but doubt bacterial PNA. As above. Appreciate Pulmonary and drill press operator input. (4) Tachycardia: Code(s): R00.0 - Tachycardia, unspecified Status: Acute Assessment and Plan: Patient with atrial tachycardia and episodes of SVT. Treated with IV metoprolol with benefit. Tele showing that she is maintaining NSR. Continue telemetry. Continue to monitor. (5) Pneumomediastinum: Code(s): J98.2 - Interstitial emphysema Status: Acute Assessment and Plan: There was noted to be gas in the neck soft tissues by CXR 05/24. X-ray 05/25 showed that this was no longer visualized. As above. (6) LV dysfunction: Code(s): I51.9 - Heart disease, unspecified Status: Acute Assessment and Plan: Troponin negative x2 (>24hrs apart) on admission. EKG reviewed showing borderline ST changes in the high lateral leads and voltage criteria for LVH. Echo 05/18 showing EF 45-50% and mild LAE but LV chamber normal. Mild valvular disease noted. Etiology of the mild LV dysfunction unclear. This could be acute related to COVID or possibly chronic and unrelated. She does have hypertension but no increased LV wall thickness to suggest LVH. Patient will need repeat echocardiogram after discharge. Continue intermittent doses of Lasix as needed. (7) Diabetes mellitus: Code(s): E11.9 - Type 2 diabetes mellitus without complications Status: Acute Assessment and Plan: A1c 7.4 consistent with DM. The patient's blood glucose was reviewed on 05/30 Glucose remains poorly controlled in the 200s related to the steroids. Continue AccuCheks covering with sliding scale. Hypoglycemia protocol available as needed. Continue to advance Lantus to con
[2021-05-30 16:11] LABS: Glucose Point of Care 271 mg/dl (65-105)
[2021-05-30] MEDS: PROPOFOL IV EMULSION 100 ML 16.26 MG IV CONT ×2 (16:28→22:29)
[2021-05-30] MEDS: INSULIN GLARGINE (*BKC) 100 UNITS/ML 30 UNITS SUB-Q (21:08)
[2021-05-30] MEDS: MONTELUKAST SODIUM 10 MG TABLET PO (21:09)
[2021-05-30 21:25] LABS: Glucose Point of Care 232 mg/dl (65-105)
[2021-05-31] VITALS (60 sets, daily range): BP systolic 95–203; BP diastolic 63–106; PULSE 85–153; RESP 22–34; TEMP 36.2–36.9; O2SAT 93–99
[2021-05-31] MEDS: CISATRACURIUM BESYLATE 200 MG in DEXTROSE 5% 80 ML 15.69 ML IV CONT (00:25)
[2021-05-31] MEDS: INSULIN ASPART (*BKC) 100 UNITS/ML SUB-Q ×6 (00:26→20:54)
[2021-05-31 00:36] LABS: Glucose Point of Care 223 mg/dl (65-105)
[2021-05-31] MEDS: EPOPROSTENOL SODIUM 0.5 MG VIAL 1 MG INHALATION ×4 (01:14→19:34)
[2021-05-31 04:19] LABS: Base Excess ABG 12.6 mEq/l (+/-2.0); HCO3 ABG 41.2 mEq/l (22.0-26.0); pH ABG 7.358 (7.350-7.450)
[2021-05-31 04:20] LABS: Carboxyhemoglobin 0.3 % THb (0-2.0); Methemoglobin ABG 0.3 %THb (0-1.5); Oxygen Content ABG 17.3 %vol (16.0-22.0); Reduced Hemoglobin 3.4 %THb (0-5.0); Total Hemoglobin 12.7 g/dL (12.0-18.0)
[2021-05-31 04:21] LABS: Fractional Inspired Oxygen 100 %; Modified Allen's Test Pass; PO2 FiO2 Ratio Arterial Blood 0.99 %; Site Drawn LEFT RADIAL
[2021-05-31] MEDS: PROPOFOL IV EMULSION 100 ML 16.26 MG IV CONT (04:22)
[2021-05-31 04:24] LABS: Device VENTILATOR
[2021-05-31 04:25] LABS: Arterial Blood Gas PEEP 18 cmH2O; Arterial Blood Gas Tidal Volume 350 ml; Arterial Blood Gas Vent Mode CMV; Arterial Blood Gas Ventilator rate 30 /MIN
[2021-05-31 04:48] LABS: Glucose Point of Care 244 mg/dl (65-105)
[2021-05-31 05:17] LABS: Basophils Absolute Auto 0.1 K/mm3 (0.0-0.1); Basophils Percent Auto 0.4 % (0.2-1.2); Eosinophils Absolute Auto 0.3 K/mm3 (0-0.3); Eosinophils Percent Auto 1.6 % (0-4.4); Hematocrit 39.6 % (37.0-47.0); Hemoglobin 11.5 g/dL (12.0-15.0); Immature Granulocyte Absolute 1.23 K/mm3 (0.00-0.031); Immature Granulocyte Percent A 6.4 % (0-0.5); Lymphocytes Absolute Auto 0.61 K/mm3 (0.9-3.2); Lymphocytes Percent Auto 3.2 % (18.3-44.2); Mean Corpuscular Hemoglobin 28.3 pg (26-34); Mean Corpuscular Volume 97.5 fl (80-100); Mean Platelet Volume 12.1 fl (7.4-10.4); Monocytes Absolute Auto 0.8 K/mm3 (0.1-0.6); Monocytes Percent Auto 4.3 % (2.6-8.5); Neutrophils Absolute Auto 16.2 K/mm3 (1.3-6.7); Neutrophils Percent Auto 84.1 % (45.5-73.1); Platelet Count Result 200 k/mm3 (150-375); Red Blood Count 4.06 M/mm3 (4.2-5.4); Red Cell Distribution Width 14.6 % (11.5-14.5); White Blood Count 19.2 K/mm3 (4.5-10.0)
[2021-05-31 05:36] LABS: Alanine Aminotransferase 89 U/L (4-35); Albumin Level 2.5 g/dL (3.5-5.1); Alkaline Phosphatase 97 U/L (38-126); Aspartate Amino Transferase 35 U/L (14-36); Bilirubin,Total 0.5 mg/dL (0.2-1.3); Blood Urea Nitrogen 39 mg/dL (7-17); Calcium 8.3 mg/dL (8.4-10.2); Carbon Dioxide > 40 mmol/L (22-30); Chloride 97 mmol/L (98-107); Estimated CRCL calculation 127 ml/min; Estimated Glomerular Filt Rate > 60; Glucose 261 mg/dL (65-110); Magnesium 2.3 mg/dL (1.6-2.3); Phosphorus 3.3 mg/dL (2.5-4.5); Potassium 4.6 mmol/L (3.4-5.0); Sodium 141 mmol/L (137-145); Triglycerides 320 mg/dL (<150)
[2021-05-31] MEDS: CENTRAL LINE FLUSH 10 ML IV PUSH ×3 (05:52→20:57)
[2021-05-31] MEDS: LEVOTHYROXINE SODIUM 125 MCG TABLET PO (05:52)
[2021-05-31] MEDS: METOPROLOL TARTRATE INJ 5 MG/5 ML VIAL IV PUSH ×2 (07:16→22:08)
[2021-05-31] MEDS: CISATRACURIUM BESYLATE 200 MG in DEXTROSE 5% 80 ML 18.83 ML IV CONT ×2 (07:21→20:53)
[2021-05-31] MEDS: PROPOFOL IV EMULSION 100 ML 26.02 MG IV CONT (08:02)
[2021-05-31] MEDS: PANTOPRAZOLE SODIUM IV 40 MG VIAL IV PUSH (08:03)
[2021-05-31] MEDS: INSULIN GLARGINE (*BKC) 100 UNITS/ML 60 UNITS SUB-Q ×2 (08:03→20:56)
[2021-05-31] MEDS: MINERAL OIL/WHITE PETROLATUM OINTMENT 1 APPLIC EACH EYE ×2 (08:03→20:56)
[2021-05-31] MEDS: ENOXAPARIN 40 MG/0.4 ML SYRINGE SUB-Q (08:04)
[2021-05-31 08:27] LABS: Glucose Point of Care 287 mg/dl (65-105)
[2021-05-31] MEDS: polyethylene glycoL 3350 17 GM POWD.PACK PO (08:53)
[2021-05-31] MEDS: MIDAZOLAM 100MG/NS 100ML(*CRX) 100 MG/100 ML BAG 8 MG IV CONT ×2 (10:14→23:10)
[2021-05-31] MEDS: CISATRACURIUM BESYLATE 200 MG in DEXTROSE 5% 80 ML 31.38 ML IV CONT (11:41)
[2021-05-31] MEDS: PROPOFOL IV EMULSION 100 ML 22.76 MG IV CONT (11:45)
--- NOTE | 2021-05-31 11:51 | PCNFU ---
Nutrition Follow-Up Complete: Inadequate Oral intake as related to COVID pneumonia as evidenced by poor po intake. Goal: Meet estimated nutritional needs Patient continues with same goal at this time. Pt current nutrition is Vital AF 1.2 at 50 ml/hr over 22 hours. Last recorded weight is 107 kg-stable Bowel Motility:No BM reported-miralax Labs Reviewed:TG 320,BUN 39, Cr 0.5,Glu 261, Alb 2.5 Meds Noted:Lopressor, Flolan, Lantus, Protonix, Synthroid, Protonix, Novolog, Nimbex, Fentanyl, Versed, Decadron, Propofol 40 cnyv=945 kcals. Skin:WNL Additional Notes: Right Chest tube placed 05/30. Patient remains on mechanical vent and tube feedings of Vital AF 1.2 at 50 ml/hr over 22 hours, propofol has increased from 30 mics to 40 mics. Total caloric intake 2007 kcals/79 gms protein/83 gms protein/83 gms protein/892 ml water. Free water flush 30 ml q 4 hours. Agree with diet orders. will monitor in ICU rounds and reassessing every Thursday and Thursday.
[2021-05-31 11:57] LABS: Glucose Point of Care 274 mg/dl (65-105)
[2021-05-31] MEDS: FENTANYL 2,500MCG/NS250ML(*CRX 2,500 MCG/250 ML BAG 15 MCG IV CONT (12:18)
--- NOTE | 2021-05-31 13:09 | WPDINTPN ---
Progress Note: A&P Assessment and Plan (1) Acute respiratory failure with hypoxia: Code(s): J96.01 - Acute respiratory failure with hypoxia Status: Acute Assessment and Plan: Acute Respiratory failure secondary to COVID-19 pneumonia Intubated 05/22 05/30: Patient desaturated in the 50s, decreased breath sounds on the right side, stat chest x-ray showed large pneumothorax, surgery placed a right-sided chest tube with improvement in her O2 sats. Post chest tube CXR shows resolution of pneumothorax ABGs reviewed, patient on peep of 18 and FiO2 of 100%. Will wean FiO2 to 90%, patient's O2 sats remain greater than 95% will decrease PEEP to 16. Continue to place patient in prone position Low tidal volume strategy to prevent volume trauma, will allow permissive hypercapnia Patient diuresed well yesterday with Lasix, Continue inhaled Flolan which was started on 05/24 CT - 05/14 IMPRESSION: 1. Moderate amount of bilateral airspace disease, appearance consistent with acute to early subacute COVID pneumonia. 2. Small lingular nodule and small T7 sclerotic focus unchanged; one-year follow-up chest CT as previously recommended. 3. No pulmonary emboli. (2) Pneumonia due to COVID-19 virus: Code(s): U07.1 - COVID-19; J12.82 - Pneumonia due to coronavirus disease 2019 Status: Acute Assessment and Plan: Patient tested positive for COVID-19 on 05/10 and received monoclonal antibody Imdevimab 600 mg and casirivimab 600 mg on 05/14 after exposure and positive test as an outpatient. Patient is unvaccinated -admitted on 05/15 and tested positive again at the hospital -completed 10 days of Remdesivir 05/24 -patient on 2nd round of dexamethasone which was started on 05/14. - completed a five-day course of azithromycin and ceftriaxone for possible CAP on 05/19. -received Convalescent Plasma 05/15 - influenza swab negative. - Option of Actemra and Barcitinib were discussed with patient by Dr. Butterfield with pulmonary earlier in the course of hospitalization considering there is no data of either drug use after monoclonal antibody infusion. Patient was given option/choice of taking these drugs and patient refused at that time. - inflammatory markers are improving (3) Hypothyroid: Qualifiers: Hypothyroidism type: unspecified Qualified Code(s): E03.9 - Hypothyroidism, unspecified Code(s): E03.9 - Hypothyroidism, unspecified Status: Acute Assessment and Plan: Continue levothyroxine (4) Hyperglycemia: Code(s): R73.9 - Hyperglycemia, unspecified Status: Acute Assessment and Plan: Will increase Lantus, on Q12H dosing -continue Accu-Cheks and sliding scale insulin Continue tube feeds at goal (5) Tachycardia: Code(s): R00.0 - Tachycardia, unspecified Status: Acute Assessment and Plan: Improved after adding propofol for sedation (6) Elevated liver enzymes: Code(s): R74.8 - Abnormal levels of other serum enzymes Status: Acute Assessment and Plan: AST and ALT are mildly elevated normal bilirubin and alkaline phosphatase monitor at this time (7) Congestive heart failure: Code(s): I50.9 - Heart failure, unspecified Status: Acute Assessment and Plan: Echo 05/18 Summary 1. Left ventricular chamber dimension is normal. 2. Left ventricular systolic function is mildly reduced, estimated at 45-50%. 3. Left atrial chamber dimension is mildly enlarged. 4. There is mild mitral valve regurgitation. Additional Plan DVT prophylaxis -Lovenox Stress ulcer prophylaxis -IV PPI Nutrition -continue Tube Feeds Code Status - Full Code 05/31/2021 D/w Dr Mejía, the spouse, updated him patient's condition and plan of care. I did tell him that via gradually on decrease her oxygenation and PEEP, if she tolerates well and good if not then will have to go back up. She understands that she is still in critical phase h
[2021-05-31] MEDS: CISATRACURIUM BESYLATE 200 MG in DEXTROSE 5% 80 ML 21.97 ML IV CONT (14:58)
[2021-05-31 15:37] LABS: Glucose Point of Care 262 mg/dl (65-105)
[2021-05-31] MEDS: PROPOFOL IV EMULSION 100 ML 19.51 MG IV CONT ×2 (15:37→20:57)
[2021-05-31] MEDS: MONTELUKAST SODIUM 10 MG TABLET PO (20:56)
[2021-05-31 21:31] LABS: Glucose Point of Care 255 mg/dl (65-105)
[2021-06-01] VITALS (42 sets, daily range): BP systolic 103–181; BP diastolic 63–100; PULSE 80–125; RESP 30; TEMP 36.3–36.7; O2SAT 92–100
[2021-06-01] MEDS: INSULIN ASPART (*BKC) 100 UNITS/ML SUB-Q ×6 (00:31→20:28)
[2021-06-01 00:39] LABS: Glucose Point of Care 271 mg/dl (65-105)
[2021-06-01] MEDS: EPOPROSTENOL SODIUM 0.5 MG VIAL 1 MG INHALATION ×4 (01:40→20:13)
[2021-06-01] MEDS: PROPOFOL IV EMULSION 100 ML 19.51 MG IV CONT (01:47)
[2021-06-01] MEDS: CISATRACURIUM BESYLATE 200 MG in DEXTROSE 5% 80 ML 18.83 ML IV CONT (01:48)
[2021-06-01] MEDS: METOPROLOL TARTRATE INJ 5 MG/5 ML VIAL IV PUSH ×3 (03:12→17:00)
[2021-06-01 04:10] LABS: Glucose Point of Care 249 mg/dl (65-105)
[2021-06-01 05:58] LABS: Hematocrit 39.2 % (37.0-47.0); Hemoglobin 11.3 g/dL (12.0-15.0); Mean Corpuscular HGB Conc 28.8 g/dl (32-36); Mean Corpuscular Hemoglobin 28.3 pg (26-34); Mean Platelet Volume 12.4 fl (7.4-10.4); Platelet Count Result 225 k/mm3 (150-375); Red Cell Distribution Width 14.3 % (11.5-14.5); White Blood Count 21.5 K/mm3 (4.5-10.0)
[2021-06-01 06:17] LABS: pH ABG 7.339 (7.350-7.450)
[2021-06-01 06:19] LABS: Base Excess ABG 16.5 mEq/l (+/-2.0); HCO3 ABG 46.3 mEq/l (22.0-26.0); Oxygen Saturation ABG 88.7 % (95.0-100.0); PO2 ABG 61.8 mmHg (80.0-100.0); Total Hemoglobin 12.5 g/dL (12.0-18.0)
[2021-06-01 06:20] LABS: Carboxyhemoglobin 0.3 % THb (0-2.0); Methemoglobin ABG 0.1 %THb (0-1.5); Modified Allen's Test Pass; Oxygen Content ABG 15.6 %vol (16.0-22.0); Oxyhemoglobin 88.5 % THb (90.0-100.0); PO2 FiO2 Ratio Arterial Blood 0.73 %; Reduced Hemoglobin 11.1 %THb (0-5.0); Site Drawn LEFT RADIAL
[2021-06-01 06:21] LABS: Arterial Blood Gas PEEP 16 cmH2O; Arterial Blood Gas Tidal Volume 350 ml; Arterial Blood Gas Vent Mode CMV; Arterial Blood Gas Ventilator rate 30 /MIN; Device VENTILATOR; Fractional Inspired Oxygen 85 %
[2021-06-01] MEDS: PROPOFOL IV EMULSION 100 ML 22.76 MG IV CONT ×5 (06:31→23:45)
[2021-06-01] MEDS: FENTANYL 2,500MCG/NS250ML(*CRX 2,500 MCG/250 ML BAG 15 MCG IV CONT ×2 (06:32→23:46)
[2021-06-01 06:48] LABS: Alanine Aminotransferase 80 U/L (4-35); Albumin Level 2.7 g/dL (3.5-5.1); Alkaline Phosphatase 95 U/L (38-126); Aspartate Amino Transferase 30 U/L (14-36); Bilirubin,Total 0.4 mg/dL (0.2-1.3); Blood Urea Nitrogen 38 mg/dL (7-17); CRP 16.5 mg/dL (<1.0); Calcium 8.6 mg/dL (8.4-10.2); Carbon Dioxide > 40 mmol/L (22-30); Chloride 97 mmol/L (98-107); Estimated CRCL calculation 152 ml/min; Estimated Glomerular Filt Rate > 60; Glucose 270 mg/dL (65-110); Lactate Dehydrogenase 676 U/L (313-618); Magnesium 2.2 mg/dL (1.6-2.3); Phosphorus 3.7 mg/dL (2.5-4.5); Potassium 5.1 mmol/L (3.4-5.0); Sodium 138 mmol/L (137-145)
[2021-06-01] MEDS: CENTRAL LINE FLUSH 10 ML IV PUSH ×3 (07:00→21:33)
[2021-06-01 07:15] LABS: Atypical Lymphocytes Present; Band Neutrophils Percent 3 % (0-6); Eosinophils Absolute Manual 0.21 K/mm3 (0.02-0.5); Eosinophils Percent Manual 1 % (0-4); Lymphocytes Absolute Manual 1.07 K/mm3 (1.1-4.5); Metamyelocytes Percent 1 %; Monocytes Absolute Manual 1.07 K/mm3 (0.1-0.90); Monocytes Percent Manual 5 % (3-9); Neutrophils Absolute Manual 18.92 K/mm3 (1.7-7.2); Neutrophils Percent Manual 85 % (46-73); Platelet Estimate Adequate (Adequate); Total Cells Counted 100
[2021-06-01] MEDS: CISATRACURIUM BESYLATE 200 MG in DEXTROSE 5% 80 ML 21.97 ML IV CONT ×4 (07:30→21:35)
[2021-06-01] MEDS: PANTOPRAZOLE SODIUM IV 40 MG VIAL IV PUSH (08:19)
[2021-06-01] MEDS: ENOXAPARIN 40 MG/0.4 ML SYRINGE SUB-Q (08:19)
[2021-06-01] MEDS: polyethylene glycoL 3350 17 GM POWD.PACK PO (08:19)
[2021-06-01] MEDS: MINERAL OIL/WHITE PETROLATUM OINTMENT 1 APPLIC EACH EYE ×2 (08:19→20:29)
[2021-06-01 09:34] LABS: Glucose Point of Care 224 mg/dl (65-105)
[2021-06-01] MEDS: INSULIN GLARGINE (*BKC) 100 UNITS/ML 75 UNITS SUB-Q ×2 (09:34→20:29)
[2021-06-01] MEDS: LEVOTHYROXINE SODIUM 125 MCG TABLET PO (09:35)
[2021-06-01] MEDS: MIDAZOLAM 100MG/NS 100ML(*CRX) 100 MG/100 ML BAG 8 MG IV CONT ×2 (10:55→23:48)
--- NOTE | 2021-06-01 11:39 | WPDINTPN ---
Progress Note: A&P Assessment and Plan (1) Acute respiratory failure with hypoxia: Code(s): J96.01 - Acute respiratory failure with hypoxia Status: Acute Assessment and Plan: Acute Respiratory failure secondary to COVID-19 pneumonia Intubated 05/22 05/30: Patient desaturated in the 50s, decreased breath sounds on the right side, stat chest x-ray showed large pneumothorax, surgery placed a right-sided chest tube with improvement in her O2 sats. Post chest tube CXR shows resolution of pneumothorax ABGs reviewed, patient on peep of 16 and FiO2 of 90%. Will increase PEEP to 18 as patient is hypercapnic, will continue to wean FiO2 to maintain O2 sats greater than 92%. Continue to place patient in prone position -continue inhaled Flolan which was started on 05/24 Low tidal volume strategy to prevent volume trauma, will allow permissive hypercapnia Will diurese again today as patient is in positive fluid balance, CT - 05/14 IMPRESSION: 1. Moderate amount of bilateral airspace disease, appearance consistent with acute to early subacute COVID pneumonia. 2. Small lingular nodule and small T7 sclerotic focus unchanged; one-year follow-up chest CT as previously recommended. 3. No pulmonary emboli. (2) Pneumonia due to COVID-19 virus: Code(s): U07.1 - COVID-19; J12.82 - Pneumonia due to coronavirus disease 2019 Status: Acute Assessment and Plan: Patient tested positive for COVID-19 on 05/10 and received monoclonal antibody Imdevimab 600 mg and casirivimab 600 mg on 05/14 after exposure and positive test as an outpatient. Patient is unvaccinated -admitted on 05/15 and tested positive again at the hospital -completed 10 days of Remdesivir 05/24 -patient on 2nd round of dexamethasone which was started on 05/25. - completed a five-day course of azithromycin and ceftriaxone for possible CAP on 05/19. -received Convalescent Plasma 05/15 - influenza swab negative. - Option of Actemra and Barcitinib were discussed with patient by Dr. Butterfield with pulmonary earlier in the course of hospitalization considering there is no data of either drug use after monoclonal antibody infusion. Patient was given option/choice of taking these drugs and patient refused at that time. - inflammatory markers are improving (3) Hypothyroid: Qualifiers: Hypothyroidism type: unspecified Qualified Code(s): E03.9 - Hypothyroidism, unspecified Code(s): E03.9 - Hypothyroidism, unspecified Status: Acute Assessment and Plan: Continue levothyroxine (4) Hyperglycemia: Code(s): R73.9 - Hyperglycemia, unspecified Status: Acute Assessment and Plan: Will increase Lantus, on Q12H dosing -continue Accu-Cheks and sliding scale insulin Continue tube feeds at goal (5) Tachycardia: Code(s): R00.0 - Tachycardia, unspecified Status: Acute Assessment and Plan: Improved after adding propofol for sedation (6) Elevated liver enzymes: Code(s): R74.8 - Abnormal levels of other serum enzymes Status: Acute Assessment and Plan: AST and ALT are mildly elevated normal bilirubin and alkaline phosphatase monitor at this time (7) Congestive heart failure: Code(s): I50.9 - Heart failure, unspecified Status: Acute Assessment and Plan: Echo 05/18 Summary 1. Left ventricular chamber dimension is normal. 2. Left ventricular systolic function is mildly reduced, estimated at 45-50%. 3. Left atrial chamber dimension is mildly enlarged. 4. There is mild mitral valve regurgitation. Additional Plan DVT prophylaxis -Lovenox Stress ulcer prophylaxis -IV PPI Nutrition -continue Tube Feeds Code Status - Full Code 05/31/2021 D/w Dr Mejía, the spouse, updated him patient's condition and plan of care. I did tell him that via gradually on decrease her oxygenation and PEEP, if she tolerates well and good if not then will have to go back up. She
--- NOTE | 2021-06-01 12:49 | PM.IMPN ---
Progress Note: A&P Assessment and Plan (1) Acute respiratory failure with hypoxia: Code(s): J96.01 - Acute respiratory failure with hypoxia Status: Acute Assessment and Plan: Acute Respiratory failure secondary to COVID-19 pneumonia Intubated 05/22 05/30: Patient desaturated in the 50s, decreased breath sounds on the right side, stat chest x-ray showed large pneumothorax, surgery placed a right-sided chest tube with improvement in her O2 sats. Post chest tube CXR shows resolution of pneumothorax ABGs reviewed, patient on peep of 16 and FiO2 of 90%. Will increase PEEP to 18 as patient is hypercapnic, will continue to wean FiO2 to maintain O2 sats greater than 92%. Continue to place patient in prone position -continue inhaled Flolan which was started on 05/24 Low tidal volume strategy to prevent volume trauma, will allow permissive hypercapnia Will diurese again today as patient is in positive fluid balance, CT - 05/14 IMPRESSION: 1. Moderate amount of bilateral airspace disease, appearance consistent with acute to early subacute COVID pneumonia. 2. Small lingular nodule and small T7 sclerotic focus unchanged; one-year follow-up chest CT as previously recommended. 3. No pulmonary emboli. 06/01/2021 Interval history with covid on vent had developed large pneumothorax on 05/30 and seen by surgeon and chest tube was placed, repeat CRX showed resolution of the pneumothorax, patient in prone position completed 10 days of remdesivir on 05/24, now on a 2nd round of dexamethasone 6 mg daily IV 01/15 patient remains stable, seen by show card writer and prepleater appreciate will continue to monitor, (2) Pneumonia due to COVID-19 virus: Code(s): U07.1 - COVID-19; J12.82 - Pneumonia due to coronavirus disease 2019 Status: Acute Assessment and Plan: Patient tested positive for COVID-19 on 05/10 and received monoclonal antibody Imdevimab 600 mg and casirivimab 600 mg on 05/14 after exposure and positive test as an outpatient. Patient is unvaccinated -admitted on 05/15 and tested positive again at the hospital -completed 10 days of Remdesivir 05/24 -patient on 2nd round of dexamethasone which was started on 05/25. - completed a five-day course of azithromycin and ceftriaxone for possible CAP on 05/19. -received Convalescent Plasma 05/15 - influenza swab negative. - Option of Actemra and Barcitinib were discussed with patient by Dr. Butterfield with pulmonary earlier in the course of hospitalization considering there is no data of either drug use after monoclonal antibody infusion. Patient was given option/choice of taking these drugs and patient refused at that time. - inflammatory markers are improving (3) Hypothyroid: Qualifiers: Hypothyroidism type: unspecified Qualified Code(s): E03.9 - Hypothyroidism, unspecified Code(s): E03.9 - Hypothyroidism, unspecified Status: Acute Assessment and Plan: Continue levothyroxine (4) Hyperglycemia: Code(s): R73.9 - Hyperglycemia, unspecified Status: Acute Assessment and Plan: Will increase Lantus, on Q12H dosing -continue Accu-Cheks and sliding scale insulin Continue tube feeds at goal (5) Tachycardia: Code(s): R00.0 - Tachycardia, unspecified Status: Acute Assessment and Plan: Improved after adding propofol for sedation (6) Elevated liver enzymes: Code(s): R74.8 - Abnormal levels of other serum enzymes Status: Acute Assessment and Plan: AST and ALT are mildly elevated normal bilirubin and alkaline phosphatase monitor at this time (7) Congestive heart failure: Code(s): I50.9 - Heart failure, unspecified Status: Acute Assessment and Plan: Echo 05/18 Summary 1. Left ventricular chamber dimension is normal. 2. Left ventricular systolic function is mildly reduced, estimated at 45-50%. 3. Left atrial chamber dimension is mildly enlarged. 4.
[2021-06-01] MEDS: FUROSEMIDE INJ 40 MG/4 ML VIAL IV PUSH (12:57)
[2021-06-01 13:09] LABS: Glucose Point of Care 266 mg/dl (65-105)
[2021-06-01 16:33] LABS: Glucose Point of Care 230 mg/dl (65-105)
[2021-06-01] MEDS: MONTELUKAST SODIUM 10 MG TABLET PO (20:30)
[2021-06-01 21:12] LABS: Glucose Point of Care 233 mg/dl (65-105)
[2021-06-02] VITALS (40 sets, daily range): BP systolic 94–185; BP diastolic 54–96; PULSE 75–117; RESP 28–30; TEMP 35.8–36.8; O2SAT 90–98
[2021-06-02] MEDS: INSULIN ASPART (*BKC) 100 UNITS/ML SUB-Q ×4 (00:21→15:39)
[2021-06-02] MEDS: METOPROLOL TARTRATE INJ 5 MG/5 ML VIAL IV PUSH ×4 (00:22→22:10)
[2021-06-02 00:28] LABS: Glucose Point of Care 232 mg/dl (65-105)
[2021-06-02] MEDS: EPOPROSTENOL SODIUM 0.5 MG VIAL 1 MG INHALATION ×4 (02:26→20:58)
[2021-06-02] MEDS: CISATRACURIUM BESYLATE 200 MG in DEXTROSE 5% 80 ML 21.97 ML IV CONT ×5 (02:37→20:27)
[2021-06-02] MEDS: PROPOFOL IV EMULSION 100 ML 22.76 MG IV CONT ×2 (03:54→07:58)
[2021-06-02 04:00] LABS: Glucose Point of Care 206 mg/dl (65-105)
[2021-06-02 04:46] LABS: Alveolar/Arterial O2 Gradient 411.4 mmHg; Base Excess ABG 13.5 mEq/l (+/-2.0); Carboxyhemoglobin 0.2 % THb (0-2.0); Fractional Inspired Oxygen 80 %; HCO3 ABG 41.8 mEq/l (22.0-26.0); Oxygen Content ABG 16.2 %vol (16.0-22.0); Oxygen Saturation ABG 95.1 % (95.0-100.0); Oxyhemoglobin 94.6 % THb (90.0-100.0); PO2 FiO2 Ratio Arterial Blood 1.01 %; Reduced Hemoglobin 5.2 %THb (0-5.0); Total Hemoglobin 12.1 g/dL (12.0-18.0); pH ABG 7.368 (7.350-7.450)
[2021-06-02 04:47] LABS: PCO2 ABG 74.3 mmHg (35.0-45.0)
[2021-06-02 04:48] LABS: Arterial Blood Gas Vent Mode CMV; Arterial Blood Gas Ventilator rate 30 /MIN; Device VENTILATOR; Modified Allen's Test Pass; Site Drawn RIGHT RADIAL
[2021-06-02 04:49] LABS: Arterial Blood Gas PEEP 18 cmH2O; Arterial Blood Gas Tidal Volume 350 ml
[2021-06-02] MEDS: CENTRAL LINE FLUSH 10 ML IV PUSH ×3 (05:33→21:58)
[2021-06-02] MEDS: LEVOTHYROXINE SODIUM 125 MCG TABLET PO (05:33)
[2021-06-02 06:05] LABS: Hematocrit 37.5 % (37.0-47.0); Hemoglobin 11.1 g/dL (12.0-15.0); Mean Corpuscular HGB Conc 29.6 g/dl (32-36); Mean Corpuscular Hemoglobin 28.5 pg (26-34); Mean Corpuscular Volume 96.4 fl (80-100); Mean Platelet Volume 12.4 fl (7.4-10.4); Platelet Count Result 223 k/mm3 (150-375); Red Blood Count 3.89 M/mm3 (4.2-5.4); Red Cell Distribution Width 14.3 % (11.5-14.5); White Blood Count 17.6 K/mm3 (4.5-10.0)
[2021-06-02 06:23] LABS: Alanine Aminotransferase 64 U/L (4-35); Albumin Level 2.8 g/dL (3.5-5.1); Alkaline Phosphatase 89 U/L (38-126); Aspartate Amino Transferase 28 U/L (14-36); Bilirubin,Total 0.5 mg/dL (0.2-1.3); Blood Urea Nitrogen 38 mg/dL (7-17); Calcium 8.4 mg/dL (8.4-10.2); Carbon Dioxide > 40 mmol/L (22-30); Chloride 95 mmol/L (98-107); Estimated CRCL calculation 192 ml/min; Estimated Glomerular Filt Rate > 60; Glucose 246 mg/dL (65-110); Phosphorus 3.6 mg/dL (2.5-4.5); Potassium 5.1 mmol/L (3.4-5.0); Sodium 136 mmol/L (137-145)
[2021-06-02 08:07] LABS: Band Neutrophils Percent 2 % (0-6); Eosinophils Absolute Manual 0.35 K/mm3 (0.02-0.5); Eosinophils Percent Manual 2 % (0-4); Lymphocytes Absolute Manual 0.88 K/mm3 (1.1-4.5); Monocytes Absolute Manual 0.88 K/mm3 (0.1-0.90); Monocytes Percent Manual 5 % (3-9); Neutrophils Absolute Manual 15.48 K/mm3 (1.7-7.2); Neutrophils Percent Manual 86 % (46-73); Platelet Estimate Adequate (Adequate); Total Cells Counted 100
[2021-06-02 08:08] LABS: Atypical Lymphocytes Present
[2021-06-02] MEDS: polyethylene glycoL 3350 17 GM POWD.PACK PO (09:45)
[2021-06-02] MEDS: PANTOPRAZOLE SODIUM IV 40 MG VIAL IV PUSH (09:45)
[2021-06-02] MEDS: MINERAL OIL/WHITE PETROLATUM OINTMENT 1 APPLIC EACH EYE ×2 (09:45→20:29)
[2021-06-02] MEDS: INSULIN GLARGINE (*BKC) 100 UNITS/ML 75 UNITS SUB-Q ×2 (09:46→20:28)
[2021-06-02] MEDS: ENOXAPARIN 40 MG/0.4 ML SYRINGE SUB-Q (09:46)
[2021-06-02] MEDS: PROPOFOL IV EMULSION 100 ML 26.02 MG IV CONT ×3 (11:30→22:03)
[2021-06-02] MEDS: MIDAZOLAM 100MG/NS 100ML(*CRX) 100 MG/100 ML BAG 8 MG IV CONT (11:35)
--- NOTE | 2021-06-02 12:35 | WPDINTPN ---
Progress Note: A&P Assessment and Plan (1) Acute respiratory failure with hypoxia: Code(s): J96.01 - Acute respiratory failure with hypoxia Status: Acute Assessment and Plan: Acute Respiratory failure secondary to COVID-19 pneumonia Intubated 05/22 05/30: Patient desaturated in the 50s, decreased breath sounds on the right side, stat chest x-ray showed large pneumothorax, surgery placed a right-sided chest tube with improvement in her O2 sats. Post chest tube CXR shows resolution of pneumothorax 06/02: Patient has not been receiving adequate tidal volumes, ventilated was switched. the tidal volumes were much better, still had a lot of air leak from the chest tube so decreased PEEP to 14 and increased FiO2 to 100%. Will continue to monitor closely. Also the peak pressures are in the 51-54, most likely secondary to stiffening of the lungs as well as high PEEP, and chest tube. Continue to place patient in prone position -continue inhaled Flolan which was started on 05/24 Low tidal volume strategy to prevent volume trauma, will allow permissive hypercapnia Will diurese patient again today, 06/02 CT - 05/14 IMPRESSION: 1. Moderate amount of bilateral airspace disease, appearance consistent with acute to early subacute COVID pneumonia. 2. Small lingular nodule and small T7 sclerotic focus unchanged; one-year follow-up chest CT as previously recommended. 3. No pulmonary emboli. (2) Pneumonia due to COVID-19 virus: Code(s): U07.1 - COVID-19; J12.82 - Pneumonia due to coronavirus disease 2019 Status: Acute Assessment and Plan: Patient tested positive for COVID-19 on 05/10 and received monoclonal antibody Imdevimab 600 mg and casirivimab 600 mg on 05/14 after exposure and positive test as an outpatient. Patient is unvaccinated -admitted on 05/15 and tested positive again at the hospital -completed 10 days of Remdesivir 05/24 -patient on 2nd round of dexamethasone which was started on 05/25. - completed a five-day course of azithromycin and ceftriaxone for possible CAP on 05/19. -received Convalescent Plasma 05/15 - influenza swab negative. - Option of Actemra and Barcitinib were discussed with patient by Dr. Butterfield with pulmonary earlier in the course of hospitalization considering there is no data of either drug use after monoclonal antibody infusion. Patient was given option/choice of taking these drugs and patient refused at that time. - inflammatory markers are improving (3) Hypothyroid: Qualifiers: Hypothyroidism type: unspecified Qualified Code(s): E03.9 - Hypothyroidism, unspecified Code(s): E03.9 - Hypothyroidism, unspecified Status: Acute Assessment and Plan: Continue levothyroxine (4) Hyperglycemia: Code(s): R73.9 - Hyperglycemia, unspecified Status: Acute Assessment and Plan: continue Lantus, on Q12H dosing, hyperglycemia likely related to steroids -continue Accu-Cheks and sliding scale insulin Continue tube feeds at goal (5) Tachycardia: Code(s): R00.0 - Tachycardia, unspecified Status: Acute Assessment and Plan: Improved after adding propofol for sedation (6) Elevated liver enzymes: Code(s): R74.8 - Abnormal levels of other serum enzymes Status: Acute Assessment and Plan: AST and ALT are mildly elevated normal bilirubin and alkaline phosphatase monitor at this time (7) Congestive heart failure: Code(s): I50.9 - Heart failure, unspecified Status: Acute Assessment and Plan: Echo 05/18 Summary 1. Left ventricular chamber dimension is normal. 2. Left ventricular systolic function is mildly reduced, estimated at 45-50%. 3. Left atrial chamber dimension is mildly enlarged. 4. There is mild mitral valve regurgitation. Additional Plan DVT prophylaxis -Lovenox Stress ulcer prophylaxis -IV PPI Nutrition -continue Tube Feeds Code Status - Full Code
[2021-06-02 12:56] LABS: Glucose Point of Care 208 mg/dl (65-105)
[2021-06-02 12:56] LABS: Glucose Point of Care 199 mg/dl (65-105)
[2021-06-02] MEDS: FUROSEMIDE INJ 40 MG/4 ML VIAL IV PUSH (13:57)
[2021-06-02] MEDS: FENTANYL 2,500MCG/NS250ML(*CRX 2,500 MCG/250 ML BAG 15 MCG IV CONT (15:38)
[2021-06-02 16:14] LABS: Glucose Point of Care 223 mg/dl (65-105)
[2021-06-02] MEDS: MONTELUKAST SODIUM 10 MG TABLET PO (20:29)
[2021-06-02 20:52] LABS: Glucose Point of Care 184 mg/dl (65-105)
[2021-06-03] VITALS (51 sets, daily range): BP systolic 88–152; BP diastolic 57–81; PULSE 96–150; RESP 26–85; TEMP 36.2–37.1; O2SAT 85–97
[2021-06-03 00:07] LABS: Glucose Point of Care 148 mg/dl (65-105)
[2021-06-03] MEDS: MIDAZOLAM 100MG/NS 100ML(*CRX) 100 MG/100 ML BAG 8 MG IV CONT ×2 (00:58→12:18)
[2021-06-03] MEDS: CISATRACURIUM BESYLATE 200 MG in DEXTROSE 5% 80 ML 21.97 ML IV CONT ×6 (01:01→22:16)
[2021-06-03] MEDS: PROPOFOL IV EMULSION 100 ML 26.02 MG IV CONT ×3 (02:00→09:12)
[2021-06-03] MEDS: EPOPROSTENOL SODIUM 0.5 MG VIAL 1 MG INHALATION ×4 (02:40→20:29)
[2021-06-03 03:59] LABS: Glucose Point of Care 149 mg/dl (65-105)
[2021-06-03] MEDS: METOPROLOL TARTRATE INJ 5 MG/5 ML VIAL IV PUSH ×4 (04:04→17:38)
[2021-06-03 04:05] LABS: Base Excess ABG 14.6 mEq/l (+/-2.0)
[2021-06-03 04:06] LABS: Carboxyhemoglobin 0.2 % THb (0-2.0); Methemoglobin ABG 0.1 %THb (0-1.5); Oxygen Content ABG 16.4 %vol (16.0-22.0); PO2 FiO2 Ratio Arterial Blood 0.91 %; Reduced Hemoglobin 3.2 %THb (0-5.0)
[2021-06-03 04:07] LABS: Device VENTILATOR; Fractional Inspired Oxygen 100 %; Modified Allen's Test Pass; Site Drawn LEFT RADIAL
[2021-06-03 04:09] LABS: Arterial Blood Gas PEEP 14 cmH2O; Arterial Blood Gas Vent Mode CMV; Arterial Blood Gas Ventilator rate 30 /MIN
[2021-06-03 04:10] LABS: Arterial Blood Gas Tidal Volume 400 ml
[2021-06-03 04:59] LABS: Hemoglobin 11.1 g/dL (12.0-15.0); Mean Corpuscular HGB Conc 30.8 g/dl (32-36); Mean Corpuscular Hemoglobin 28.2 pg (26-34); Mean Corpuscular Volume 91.4 fl (80-100); Mean Platelet Volume 12.4 fl (7.4-10.4); Platelet Count Result 275 k/mm3 (150-375); Red Blood Count 3.94 M/mm3 (4.2-5.4); Red Cell Distribution Width 14.9 % (11.5-14.5); White Blood Count 24.9 K/mm3 (4.5-10.0)
[2021-06-03] MEDS: LEVOTHYROXINE SODIUM 125 MCG TABLET PO (05:21)
[2021-06-03] MEDS: CENTRAL LINE FLUSH 10 ML IV PUSH ×3 (05:21→21:07)
[2021-06-03 05:26] LABS: Lactate Dehydrogenase 927 U/L (313-618)
[2021-06-03 05:39] LABS: Alanine Aminotransferase 59 U/L (4-35); Albumin Level 2.7 g/dL (3.5-5.1); Alkaline Phosphatase 124 U/L (38-126); Anion Gap -1 mmol/L (8-16); Aspartate Amino Transferase 41 U/L (14-36); Bilirubin,Total 0.7 mg/dL (0.2-1.3); Blood Urea Nitrogen 37 mg/dL (7-17); Calcium 8.4 mg/dL (8.4-10.2); Carbon Dioxide 39 mmol/L (22-30); Chloride 95 mmol/L (98-107); Estimated CRCL calculation 123 ml/min; Estimated Glomerular Filt Rate > 60; Glucose 169 mg/dL (65-110); Magnesium 1.8 mg/dL (1.6-2.3); Phosphorus 3.6 mg/dL (2.5-4.5); Potassium 3.8 mmol/L (3.4-5.0); Sodium 133 mmol/L (137-145); Triglycerides 350 mg/dL (<150)
[2021-06-03 05:48] LABS: CRP 12.5 mg/dL (<1.0)
[2021-06-03 07:19] LABS: Atypical Lymphocytes Present; Band Neutrophils Percent 16 % (0-6); Lymphocytes Absolute Manual 0.74 K/mm3 (1.1-4.5); Metamyelocytes Percent 2 %; Monocytes Absolute Manual 1.49 K/mm3 (0.1-0.90); Monocytes Percent Manual 6 % (3-9); Neutrophils Absolute Manual 22.16 K/mm3 (1.7-7.2); Neutrophils Percent Manual 73 % (46-73); Platelet Estimate Adequate (Adequate); Total Cells Counted 100
--- NOTE | 2021-06-03 07:53 | PC.NURSE ---
0607 called to bedside, pt O2 sats 83%, Sybil from RT called, RN began bagging pt and RT took over upon arrival, Sats up to 85-86%. Cuff pressure intact, chest tube system intact, lung sounds present bilaterally, coarse and diminished, vent cycling correctly, pulling correct volume ([id number] exhaling adequate amounts 300-325). Morning chest xray completed. Dr. Carmichael called at 0640 with above assessment and lab values. No new orders, will be here shortly. 0650 Dr. Carmichael at bedside, vent changes made, PEEP decreased to 12, Sats 86-88%.
[2021-06-03] MEDS: FENTANYL 2,500MCG/NS250ML(*CRX 2,500 MCG/250 ML BAG 15 MCG IV CONT (07:55)
[2021-06-03] MEDS: DORNASE ALFA INH SOLN 1 MG/ML 2.5 ML AMP 2.5 MG INHALATION ×2 (07:55→21:46)
[2021-06-03] MEDS: PANTOPRAZOLE SODIUM IV 40 MG VIAL IV PUSH (07:56)
[2021-06-03] MEDS: ENOXAPARIN 40 MG/0.4 ML SYRINGE SUB-Q (07:56)
[2021-06-03] MEDS: INSULIN GLARGINE (*BKC) 100 UNITS/ML 75 UNITS SUB-Q ×2 (07:56→20:58)
[2021-06-03] MEDS: INSULIN ASPART (*BKC) 100 UNITS/ML SUB-Q ×2 (07:56→12:09)
[2021-06-03] MEDS: MINERAL OIL/WHITE PETROLATUM OINTMENT 1 APPLIC EACH EYE ×2 (07:57→21:00)
[2021-06-03] MEDS: polyethylene glycoL 3350 17 GM POWD.PACK PO (07:57)
[2021-06-03 08:40] LABS: Glucose Point of Care 213 mg/dl (65-105)
--- NOTE | 2021-06-03 11:27 | PCFNICU ---
ICU Rounding Note: Pt current nutrition is vital AF 1.2 running at 50mL/hr over 22 hours. Last recorded weight is 102.4 kg, down from recorded wt of 107kg on 05/31. Bowel Motility: No BM reported. Hypoactive bowel sounds. Miralax started 05/30 Labs Reviewed: Hgb 11.1, Hct 36.0, alb 2.7, Na 133, LDH 927, ALT 59, BUN 37, Cr 0.50, Glu 169, TG 350 Meds Noted: Nimbex, lovenox, flolan, fentanyl, novolog, lantus, synthroid, lopressor, versed, protonix, miralax, propofol 40mics = 687kcal Skin: WNL Additional Notes: Pt remains on mechanical vent and tube feeding of vital AF 1.2 running at 50mL/hr over 22 hours providing 1320kcal/83g protein/ 892mL water. Free water flush 30mL Q4. Propofol running at 40 mics providing 687kcal. Total caloric intake is 2007kcal/83g protein/ 892mL water. Agree with diet orders at this time. Will continue to follow. Following daily in ICU rounds. will monitor every T/F.
[2021-06-03 12:29] LABS: Alveolar/Arterial O2 Gradient 572.7 mmHg; Base Excess ABG 11.4 mEq/l (+/-2.0); Fractional Inspired Oxygen 100 %; HCO3 ABG 37.9 mEq/l (22.0-26.0); Oxygen Content ABG 15.4 %vol (16.0-22.0); Oxygen Saturation ABG 95.8 % (95.0-100.0); PCO2 ABG 59.7 mmHg (35.0-45.0); PO2 ABG 80.6 mmHg (80.0-100.0); PO2 FiO2 Ratio Arterial Blood 0.81 %; Total Hemoglobin 11.6 g/dL (12.0-18.0); pH ABG 7.421 (7.350-7.450)
[2021-06-03 12:30] LABS: Device VENTILATOR; Modified Allen's Test Pass; Site Drawn RIGHT RADIAL
[2021-06-03 12:30] LABS: Glucose Point of Care 231 mg/dl (65-105)
[2021-06-03 12:32] LABS: Arterial Blood Gas PEEP 10 cmH2O; Arterial Blood Gas Pressure Support 0 cmH2O; Arterial Blood Gas Tidal Volume 400 ml; Arterial Blood Gas Vent Mode CMV; Arterial Blood Gas Ventilator rate 26 /MIN; Peak Inspiratory Pressure 0 cmH2O
[2021-06-03] MEDS: PROPOFOL IV EMULSION 100 ML 19.51 MG IV CONT ×3 (12:48→22:18)
--- NOTE | 2021-06-03 13:04 | WPDINTPN ---
Progress Note: A&P Assessment and Plan (1) Acute respiratory failure with hypoxia: Code(s): J96.01 - Acute respiratory failure with hypoxia Status: Acute Assessment and Plan: Acute Respiratory failure secondary to COVID-19 pneumonia Intubated 05/22 05/30: Patient desaturated in the 50s, decreased breath sounds on the right side, stat chest x-ray showed large pneumothorax, surgery placed a right-sided chest tube with improvement in her O2 sats. Post chest tube CXR shows resolution of pneumothorax 06/02: Patient has not been receiving adequate tidal volumes, ventilated was switched. the tidal volumes were much better, still had a lot of air leak from the chest tube so decreased PEEP to 14 and increased FiO2 to 100%. Will continue to monitor closely. Also the peak pressures are in the 51-54, most likely secondary to stiffening of the lungs as well as high PEEP, and chest tube. 06/03: Patient desaturated in the low to mid 80s. Peep was again decreased to 12 and then 10 with improvement in O2 sats in the upper 80s. Repeat ABGs much improved. Continue to place patient in prone position -continue inhaled Flolan which was started on 05/24 Low tidal volume strategy to prevent volume trauma, will allow permissive hypercapnia 06/[address] - 05/14 IMPRESSION: 1. Moderate amount of bilateral airspace disease, appearance consistent with acute to early subacute COVID pneumonia. 2. Small lingular nodule and small T7 sclerotic focus unchanged; one-year follow-up chest CT as previously recommended. 3. No pulmonary emboli. (2) Pneumothorax: Code(s): J93.9 - Pneumothorax, unspecified Status: Acute Assessment and Plan: Patient developed around large right pneumothorax on 05/30/2021, post chest tube was inserted by surgery -patient has a large air leak -this could be related due to positive pressure ventilation, high PEEP, broncho-pleural fistula -I discussed with surgery were agrees with the above, decreased PEEP to 10 to get adequate tidal volumes as well as oxygenation. (3) Pneumonia due to COVID-19 virus: Code(s): U07.1 - COVID-19; J12.82 - Pneumonia due to coronavirus disease 2018 Status: Acute Assessment and Plan: Patient tested positive for COVID-19 on 05/10 and received monoclonal antibody Imdevimab 600 mg and casirivimab 600 mg on 05/14 after exposure and positive test as an outpatient. Patient is unvaccinated -admitted on 05/15 and tested positive again at the hospital -completed 10 days of Remdesivir 05/24 -patient on 2nd round of dexamethasone which was started on 05/25. - completed a five-day course of azithromycin and ceftriaxone for possible CAP on 05/19. -received Convalescent Plasma 05/15 - influenza swab negative. - Option of Actemra and Barcitinib were discussed with patient by Dr. Butterfield with pulmonary earlier in the course of hospitalization considering there is no data of either drug use after monoclonal antibody infusion. Patient was given option/choice of taking these drugs and patient refused at that time. (4) Hypothyroid: Qualifiers: Hypothyroidism type: unspecified Qualified Code(s): E03.9 - Hypothyroidism, unspecified Code(s): E03.9 - Hypothyroidism, unspecified Status: Acute Assessment and Plan: Continue levothyroxine (5) Hyperglycemia: Code(s): R73.9 - Hyperglycemia, unspecified Status: Acute Assessment and Plan: continue Lantus, on Q12H dosing, hyperglycemia likely related to steroids -continue Accu-Cheks and sliding scale insulin Continue tube feeds at goal (6) Tachycardia: Code(s): R00.0 - Tachycardia, unspecified Status: Acute Assessment and Plan: Improved after adding propofol for sedation (7) Elevated liver enzymes: Code(s): R74.8 - Abnormal levels of other serum enzymes Status: Acute Assessment and Plan: AST and ALT are mildly elevated
[2021-06-03] MEDS: FUROSEMIDE INJ 40 MG/4 ML VIAL IV PUSH (13:30)
[2021-06-03 15:16] LABS: Glucose Point of Care 190 mg/dl (65-105)
[2021-06-03] MEDS: MONTELUKAST SODIUM 10 MG TABLET PO (21:02)
[2021-06-03 21:13] LABS: Glucose Point of Care 198 mg/dl (65-105)
[2021-06-04] VITALS (44 sets, daily range): BP systolic 89–134; BP diastolic 55–72; PULSE 86–135; RESP 26; TEMP 36.6–37.3; O2SAT 65–88
[2021-06-04] MEDS: FENTANYL 2,500MCG/NS250ML(*CRX 2,500 MCG/250 ML BAG 15 MCG IV CONT ×2 (00:33→12:57)
[2021-06-04] MEDS: MIDAZOLAM 100MG/NS 100ML(*CRX) 100 MG/100 ML BAG 8 MG IV CONT ×2 (02:00→12:51)
[2021-06-04] MEDS: EPOPROSTENOL SODIUM 0.5 MG VIAL 1 MG INHALATION ×3 (02:46→15:14)
[2021-06-04] MEDS: CISATRACURIUM BESYLATE 200 MG in DEXTROSE 5% 80 ML 21.97 ML IV CONT ×5 (02:53→21:12)
[2021-06-04] MEDS: PROPOFOL IV EMULSION 100 ML 19.51 MG IV CONT ×4 (03:26→16:15)
[2021-06-04 03:59] LABS: Glucose Point of Care 180 mg/dl (65-105)
[2021-06-04 03:59] LABS: Glucose Point of Care 175 mg/dl (65-105)
[2021-06-04 05:29] LABS: Basophils Absolute Auto 0.1 K/mm3 (0.0-0.1); Basophils Percent Auto 0.4 % (0.2-1.2); Eosinophils Absolute Auto 0.2 K/mm3 (0-0.3); Hematocrit 30.7 % (37.0-47.0); Hemoglobin 9.3 g/dL (12.0-15.0); Immature Granulocyte Absolute 1.16 K/mm3 (0.00-0.031); Immature Granulocyte Percent A 5.7 % (0-0.5); Lymphocytes Absolute Auto 0.55 K/mm3 (0.9-3.2); Lymphocytes Percent Auto 2.7 % (18.3-44.2); Mean Corpuscular HGB Conc 30.3 g/dl (32-36); Mean Corpuscular Hemoglobin 28.7 pg (26-34); Mean Corpuscular Volume 94.8 fl (80-100); Mean Platelet Volume 11.8 fl (7.4-10.4); Monocytes Absolute Auto 0.7 K/mm3 (0.1-0.6); Monocytes Percent Auto 3.5 % (2.6-8.5); Neutrophils Absolute Auto 17.6 K/mm3 (1.3-6.7); Neutrophils Percent Auto 86.7 % (45.5-73.1); Nucleated Red Blood Cells Absolute Auto 0.2 K/mm3 (0.0-0.012); Nucleated Red Blood Cells Perc 0.7 % (0.0-0.2); Platelet Count Result 197 k/mm3 (150-375); Red Blood Count 3.24 M/mm3 (4.2-5.4); Red Cell Distribution Width 15.3 % (11.5-14.5); White Blood Count 20.3 K/mm3 (4.5-10.0)
[2021-06-04 05:52] LABS: Alveolar/Arterial O2 Gradient 592.7 mmHg; Base Excess ABG 13.9 mEq/l (+/-2.0); Carboxyhemoglobin 0.4 % THb (0-2.0); Fractional Inspired Oxygen 100 %; HCO3 ABG 41.1 mEq/l (22.0-26.0); Methemoglobin ABG 0.3 %THb (0-1.5); Oxygen Content ABG 12.3 %vol (16.0-22.0); PO2 ABG 51.9 mmHg (80.0-100.0); PO2 FiO2 Ratio Arterial Blood 0.52 %; Reduced Hemoglobin 15.8 %THb (0-5.0); Total Hemoglobin 10.5 g/dL (12.0-18.0); pH ABG 7.397 (7.350-7.450)
[2021-06-04 05:54] LABS: PCO2 ABG 68.4 mmHg (35.0-45.0)
[2021-06-04] MEDS: LEVOTHYROXINE SODIUM 125 MCG TABLET PO (05:54)
[2021-06-04] MEDS: CENTRAL LINE FLUSH 10 ML IV PUSH ×3 (05:54→21:13)
[2021-06-04 05:55] LABS: Device VENTILATOR; Modified Allen's Test Pass; Oxygen Saturation ABG 85.2 % (95.0-100.0); Oxyhemoglobin 83.5 % THb (90.0-100.0); Site Drawn RIGHT RADIAL
[2021-06-04 05:56] LABS: Arterial Blood Gas PEEP 10 cmH2O; Arterial Blood Gas Tidal Volume 400 ml; Arterial Blood Gas Vent Mode CMV; Arterial Blood Gas Ventilator rate 26 /MIN
[2021-06-04 05:58] LABS: Alanine Aminotransferase 54 U/L (4-35); Albumin Level 2.4 g/dL (3.5-5.1); Alkaline Phosphatase 95 U/L (38-126); Aspartate Amino Transferase 31 U/L (14-36); Bilirubin,Total 0.5 mg/dL (0.2-1.3); Blood Urea Nitrogen 36 mg/dL (7-17); Calcium 8.2 mg/dL (8.4-10.2); Carbon Dioxide > 40 mmol/L (22-30); Chloride 94 mmol/L (98-107); Estimated CRCL calculation 104 ml/min; Estimated Glomerular Filt Rate > 60; Glucose 165 mg/dL (65-110); Magnesium 2.2 mg/dL (1.6-2.3); Sodium 137 mmol/L (137-145)
[2021-06-04] MEDS: ENOXAPARIN 40 MG/0.4 ML SYRINGE SUB-Q (07:36)
[2021-06-04] MEDS: INSULIN GLARGINE (*BKC) 100 UNITS/ML 75 UNITS SUB-Q ×2 (07:36→20:38)
[2021-06-04] MEDS: PANTOPRAZOLE SODIUM IV 40 MG VIAL IV PUSH (07:36)
[2021-06-04] MEDS: polyethylene glycoL 3350 17 GM POWD.PACK PO (07:36)
[2021-06-04] MEDS: MINERAL OIL/WHITE PETROLATUM OINTMENT 1 APPLIC EACH EYE ×2 (07:36→20:38)
[2021-06-04] MEDS: DORNASE ALFA INH SOLN 1 MG/ML 2.5 ML AMP 2.5 MG INHALATION (08:44)
--- NOTE | 2021-06-04 09:51 | WPDINTPN ---
Progress Note: A&P Assessment and Plan (1) Acute respiratory failure with hypoxia: Code(s): J96.01 - Acute respiratory failure with hypoxia Status: Acute Assessment and Plan: Acute Respiratory failure secondary to COVID-19 pneumonia Intubated 05/22 05/30: Patient desaturated in the 50s, decreased breath sounds on the right side, stat chest x-ray showed large pneumothorax, surgery placed a right-sided chest tube with improvement in her O2 sats. Post chest tube CXR shows resolution of pneumothorax 06/02: Patient has not been receiving adequate tidal volumes, ventilated was switched. the tidal volumes were much better, still had a lot of air leak from the chest tube so decreased PEEP to 14 and increased FiO2 to 100%. Will continue to monitor closely. Also the peak pressures are in the 51-54, most likely secondary to stiffening of the lungs as well as high PEEP, and chest tube. 06/04: Desaturated middle of the night and early this morning in the mid 80s. Despite being on 100% FiO2, Flolan, prone position, full mechanical support, peep of 10. Patient is receiving adequate tidal volumes. ABGs also revealed hypoxemia Patient has been and continues prone position for the last 8 days -continue inhaled Flolan which was started on 05/24 Low tidal volume strategy to prevent volume trauma, will allow permissive hypercapnia continue diuresis CT - 05/14 IMPRESSION: 1. Moderate amount of bilateral airspace disease, appearance consistent with acute to early subacute COVID pneumonia. 2. Small lingular nodule and small T7 sclerotic focus unchanged; one-year follow-up chest CT as previously recommended. 3. No pulmonary emboli. (2) Pneumothorax: Code(s): J93.9 - Pneumothorax, unspecified Status: Acute Assessment and Plan: Patient developed around large right pneumothorax on 05/30/2021, post chest tube was inserted by surgery -patient has a large air leak -this could be related due to positive pressure ventilation, high PEEP, broncho-pleural fistula -I discussed with surgery were agrees with the above, decreased PEEP to 10 to get adequate tidal volumes as well as oxygenation. (3) Pneumonia due to COVID-19 virus: Code(s): U07.1 - COVID-19; J12.82 - Pneumonia due to coronavirus disease 2019 Status: Acute Assessment and Plan: Patient tested positive for COVID-19 on 05/10 and received monoclonal antibody Imdevimab 600 mg and casirivimab 600 mg on 05/14 after exposure and positive test as an outpatient. Patient is unvaccinated -admitted on 05/15 and tested positive again at the hospital -completed 10 days of Remdesivir 05/24 -patient on 2nd round of dexamethasone which was started on 05/25. - completed a five-day course of azithromycin and ceftriaxone for possible CAP on 05/19. -received Convalescent Plasma 05/15 - influenza swab negative. - Option of Actemra and Barcitinib were discussed with patient by Dr. Butterfield with pulmonary earlier in the course of hospitalization considering there is no data of either drug use after monoclonal antibody infusion. Patient was given option/choice of taking these drugs and patient refused at that time. (4) Hypothyroid: Qualifiers: Hypothyroidism type: unspecified Qualified Code(s): E03.9 - Hypothyroidism, unspecified Code(s): E03.9 - Hypothyroidism, unspecified Status: Acute Assessment and Plan: Continue levothyroxine (5) Hyperglycemia: Code(s): R73.9 - Hyperglycemia, unspecified Status: Acute Assessment and Plan: continue Lantus, on Q12H dosing, hyperglycemia likely related to steroids -continue Accu-Cheks and sliding scale insulin Continue tube feeds at goal (6) Tachycardia: Code(s): R00.0 - Tachycardia, unspecified Status: Acute Assessment and Plan: Improved after adding propofol for sedation (7) Elevated liver enzymes: Code(s): R74.8 - Abnormal levels of other serum
[2021-06-04 09:53] LABS: Glucose Point of Care 169 mg/dl (65-105)
[2021-06-04] MEDS: FUROSEMIDE INJ 40 MG/4 ML VIAL IV PUSH (09:56)
[2021-06-04 12:51] LABS: Glucose Point of Care 155 mg/dl (65-105)
--- NOTE | 2021-06-04 14:43 | PCNFU ---
Nutrition Follow-Up Complete: Inadequate Oral intake as related to COVID pneumonia as evdienced by poor po intake. Goal: Meet estimanted nutritional needs Pt is progressing towards goal Pt current nutrition is Vital AF 1.2 running at 50mL/hr over 22 hours. Last recorded weight is 104.6 kg. Bowel Motility: No new BM reported. Miralax started 05/30 Labs Reviewed: hgb 9.3, Hct 30.7, Alb 2..4, Cl 94, Ca 8.2, BUN 36, Cr 0.60, Glu 175, ALT 54 Meds Noted: nimbex, pulmozyme, lovenox, flolan, fentanyl, lantus, synthroid, versed, protonix, miralax, propofol Skin: WNL Additional Notes: ICU nutrition follow up. Pt remains on mechanical ventilation and tube feeding of Vital AF 1.2 running at goal rate of 50mL/hr over 22 hours providing 1320kcal, 83g of protein, and 892mL of water. Nursing staff reports that pt is tolerating tube feeding and rate. Pt has been prone for the last 8 days and remains prone. Propofol running at 30mics provides an additional 515kcal of lipids. Tube feeding and propofol provides a total of 1835kcal and 83g of protein, meeting 94% of kcal needs and 81% of protein needs. Agree with diet order at this time. Will continue to follow. Will follow everyday in ICU rounds. Will monitor every T/F.
[2021-06-04 19:34] LABS: Glucose Point of Care 140 mg/dl (65-105)
[2021-06-04] MEDS: MONTELUKAST SODIUM 10 MG TABLET PO (20:38)
[2021-06-04 21:03] LABS: Glucose Point of Care 157 mg/dl (65-105)
--- NOTE | 2021-06-05 00:36 | PC.NURSE ---
2029 Pt's O2 sats are 77-83% Rt called to bedside, vent functioning correctly, pt suctioned for small amout of dark yellow sputum with bloody streaks. Cuff pressure checked and adequate. RT gave pulmozyme neb [place] with no change in status. 2099 Family called and made decision to make pt comfort care, Dr. Carmichael notified and orders recieved. 2139 Pt turned supine and extubated after Nimbex turned off, Fentenyl left on for pain control. Family at bedside, , 2 daughters, and 1 son. 2143 Pt . See expiration note.
--- NOTE | 2021-07-05 14:13 | PM.DS ---
DS: Admitting Diagnosis Discharge Date 06/04/21 COVID-19 pneumonia, acute respiratory failure Admitting Diagnosis COVID-19 pneumonia DS: Discharge Diagnosis Discharge Diagnosis (1) Acute respiratory failure with hypoxia: Code(s): J96.01 - Acute respiratory failure with hypoxia Status: Acute Assessment and Plan: cute Respiratory failure secondary to COVID-19 pneumonia Intubated 05/22 05/30: Patient desaturated in the 50s, decreased breath sounds on the right side, stat chest x-ray showed large pneumothorax, surgery placed a right-sided chest tube with improvement in her O2 sats. Post chest tube CXR shows resolution of pneumothorax 06/02: Patient has not been receiving adequate tidal volumes, ventilated was switched. the tidal volumes were much better, still had a lot of air leak from the chest tube so decreased PEEP to 14 and increased FiO2 to 100%. Will continue to monitor closely. Also the peak pressures are in the 51-54, most likely secondary to stiffening of the lungs as well as high PEEP, and chest tube. 06/04: Desaturated middle of the night and early this morning in the mid 80s. Despite being on 100% FiO2, Flolan, prone position, full mechanical support, peep of 10. Patient is receiving adequate tidal volumes. ABGs also revealed hypoxemia Patient has been and continues prone position for the last 8 days -continue inhaled Flolan which was started on 05/24 Low tidal volume strategy to prevent volume trauma, will allow permissive hypercapnia continue diuresis CT - 05/14 IMPRESSION: 1. Moderate amount of bilateral airspace disease, appearance consistent with acute to early subacute COVID pneumonia. 2. Small lingular nodule and small T7 sclerotic focus unchanged; one-year follow-up chest CT as previously recommended. 3. No pulmonary emboli. (2) Pneumothorax: Code(s): J93.9 - Pneumothorax, unspecified Status: Acute Assessment and Plan: Patient developed around large right pneumothorax on 05/30/2021, post chest tube was inserted by surgery -patient has a large air leak -this could be related due to positive pressure ventilation, high PEEP, broncho-pleural fistula -I discussed with surgery were agrees with the above, decreased PEEP to 10 to get adequate tidal volumes as well as oxygenation. (2) COVID-19: Onset Date: 05/02/20 Code(s): U07.1 - COVID-19 Status: Acute Assessment and Plan: Patient tested positive for COVID-19 on 05/10 and received monoclonal antibody Imdevimab 600 mg and casirivimab 600 mg on 05/14 after exposure and positive test as an outpatient. Patient is unvaccinated -admitted on 05/15 and tested positive again at the hospital -completed 10 days of Remdesivir 05/24 -patient on 2nd round of dexamethasone which was started on 05/25. - completed a five-day course of azithromycin and ceftriaxone for possible CAP on 05/19. -received Convalescent Plasma 05/15 - influenza swab negative. - Option of Actemra and Barcitinib were discussed with patient by Dr. Butterfield with pulmonary earlier in the course of hospitalization considering there is no data of either drug use after monoclonal antibody infusion. Patient was given option/choice of taking these drugs and patient refused at that time. (3) Hyperglycemia: Code(s): R73.9 - Hyperglycemia, unspecified Status: Acute Assessment and Plan: continue Lantus, on Q12H dosing, hyperglycemia likely related to steroids -continue Accu-Cheks and sliding scale insulin (4) Congestive heart failure: Code(s): I50.9 - Heart failure, unspecified Status: Acute Assessment and Plan: Echo 05/18 Summary 1. Left ventricular chamber dimension is normal. 2. Left ventricular systolic function is mildly reduced, estimated at 45-50%. 3. Left atrial chamber dimension is mildly enlarged. 4. There is mild mitral valve regurgitation. DS: Summary Hospital Course Reason for hospital
--- NOTE | 2021-07-05 14:25 | P.DN_ITS ---
Discharge Summary Date and Time Date of : 06/04/21 Time of : 21:44 Probable Cause of Probable Cause of : COVID-19 pneumonia, acute respiratory failure, cardiac arrest after family withdrew support Summary Hospital Course: Eunice Mejía is a 55 year old female with past medical history of vertigo, COVID in 04/2020 With only GI symptoms and no respiratory symptoms, patient did not get hospitalized or vaccinated, was exposed to family members at [facility] who subsequently tested positive for COVID (, son and his and 2 kids, daughter and her 3 kids all positive) and went to get monoclonal antoibody treatment on 05/14 at [facility] and then went home. She had worse SOB and presented to the emergency department on 05/14 with fever, chills, aches, diarrhea and shortness of breath. Patient tested positive for COVID on 05/15/2021 in the hospital. Patient had positive D-dimer 0.[address] angiogram of the chest on 05/14 that demonstrated no pulmonary edema but diffuse multifocal patchy alveolar infiltrates consistent with acute COVID pneumonia. Over the course of hospital stay patient's oxygen requirement increased. On 05/16 patient required high flow nasal cannula oxygen with an AIRVO for hypoxemia but she could not tolerate this and was placed back to on 15 L nasal cannula. Patient was transferred to IMU and placed on BiPAP for hypoxemia at approximately 13:00. Patient is treated with ceftriaxone and azithromycin 1st dose on 05/15. Patient received dexamethasone 1st dose on 05/14, patient received first Remdesivir 05/15. Patient was transferred to the ICU on 05/21/2021 as she desaturated on BiPAP. Patient was intubated on 05/22/2021. Patient high oxygen requirements. During the course of the stay she developed pneumothorax and right side chest tube was inserted. Patient was on Flolan. 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
== END 2021-06-04 21:44 | disposition expired | DRG 207 ==
LOC: ANHED 23:15 → ANH3MEDSUR 05-15 00:45 → ANHIMU 05-16 10:14 → ANHICU 05-21 14:02
PROVIDERS: Internal Medicine; Internal Medicine Pulmonary Disease; Admitting Provider Internal Medicine; Emergency Provider Emergency Medicine; PCP Family Medicine; Visit Provider Internal Medicine
DX: U07.1 COVID-19 (principal); J12.82 Pneumonia due to coronavirus disease 2019; J96.01 Acute respiratory failure with hypoxia; N17.9 Acute kidney failure, unspecified; E87.1 Hypo-osmolality and hyponatremia; E87.2 Acidosis; I46.9 Cardiac arrest, cause unspecified; J93.9 Pneumothorax, unspecified; Z66 Do not resuscitate; E03.9 Hypothyroidism, unspecified; M19.90 Unspecified osteoarthritis, unspecified site; K76.0 Fatty (change of) liver, not elsewhere classified; K21.9 Gastro-esophageal reflux disease without esophagitis; E86.0 Dehydration; R50.9 Fever, unspecified; R19.7 Diarrhea, unspecified; G47.33 Obstructive sleep apnea (adult) (pediatric); R91.1 Solitary pulmonary nodule; J98.2 Interstitial emphysema; R73.9 Hyperglycemia, unspecified; R00.0 Tachycardia, unspecified; I11.0 Hypertensive heart disease with heart failure; I50.9 Heart failure, unspecified; R74.8 Abnormal levels of other serum enzymes; E66.9 Obesity, unspecified; Z68.38 Body mass index [BMI] 38.0-38.9, adult
CPT/HCPCS: 36415; 36430; 36569; 36600; 71045; 71275; 80048; 80053; 82375; 82550; 82728; 82805; 82948; 83036; 83050; 83605; 83615; 83735; 83880; 84100; 84443; 84450; 84460; 84478; 84484; 85025; 85055; 85380; 85610; 85730; 86140; 86900; 86901; 87804; 93005; 94002; 94003; 94640; 96365; 96375; 99285; A9270; C1751; C8929; C9113; C9803; J0131; J0330; J0456; J0696; J1100; J1650; J1815; J1940; J2250; J2405; J2704; J3010; J7030; J7050; P9059; Q9967; U0003; U0005